=== PATIENT | female | born 1945 | race Caucasian/White ===

== ENCOUNTER 2017-12-09 19:06 | Inpatient (IN) | payer MEDICARE, MEDICAID ==
--- NOTE | 2017-12-09 19:54 | ED Physician Chart ---
ED Chief Complaint/HPI - Patient Information Date Seen:: 12/09/17 Time Seen:: 19:53 Chief Complaint:: Increased agitation History of Present Illness:: 72 yo female was brought SNF to ER due to increased agitation. Her aggressive behavior posed safety risks to herself and others. She had failure to thrive with continuous refusal to meals. Allergies:: Allergies Allergy/AdvReac Type Severity Reaction Status Date / Time Sulfa (Sulfonamide Allergy Verified 12/09/17 19:31 Antibiotics) Vitals:: Vital Signs - 8 hr 12/09/17 19:20 Temp 98.7 F HR 85 RR 18 BP 143/90 O2 Sat % 98 ED Review of Systems - Review of Systems General/Constitutional: No fever Skin: No skin lesions Head: No headache Eyes: No pain ENT: No earache Neck: No neck pain Cardio Vascular: No chest pain Pulmonary: No SOB GI: No nausea, No vomiting Musculoskeletal: No bone or joint pain Psychiatric: Anxiety ED Past Medical History - Past Medical History Past Medical History: Thyroid disorder, Other (CKD) Social History: Non Smoker, No Alcohol, No Drug Use Psychiatricy History: Schizophrenia, Bipolar, Other (Anxiety) Family Medical History - Family Member Mother History Unknown: Yes ED Physical Exam - Physical Examination Other Gen/Cons comments:: Oriented to self only, wheelchair bound ED Labs/Radiology/EKG Results - EKG Interpretations EKG Time:: 20:03 Rate & Rhythm: Sinus rhythm Intervals: Atrial premature complex ED Septic Shock - <6hrs of presentation: Vital Signs: Vital Signs - 8 hr 12/09/17 19:20 Temp 98.7 F HR 85 RR 18 BP 143/90 O2 Sat % 98
[2017-12-09 20:22] LABS: HEMATOCRIT 34.3 % (41.0-60); HEMOGLOBIN 11.7 gm/dL (12-16); MEAN CELL VOLUME 94.4 fl (81-100); MEAN CORPUSCULAR HEMOGLOBIN 32.3 pg (27.0-31.0); MEAN CORPUSCULAR HGB CONC 34.2 pg (28.0-36.0); MEAN PLATELET VOLUME 8.9 fl; PLATELET COUNT 215 Th/cmm (150-400); RED BLOOD COUNT 3.64 Mil/cmm (3.80-5.20); RED CELL DISTRIBUTION WIDTH 12.1 % (11.5-20.0); WHITE BLOOD COUNT 7.4 Th/cmm (4.8-10.8)
[2017-12-09 20:43] LABS: ALB/GLOB RATIO 1.3 (1.0-1.8); ALBUMIN 3.9 gm/dL (3.7-5.3); ANION GAP 6.2 (7.0-16.0); BILIRUBIN,TOTAL 0.3 mg/dL (0.3-1.0); CALCIUM SERUM 10.7 mg/dL (8.6-10.3); CARBON DIOXIDE 27.1 mEq/L (21.0-31.0); CREATININE - SERUM 2.5 mg/dL (0.6-1.2); GFR AFRICAN-AMERICAN 24.5 ml/min (>90); GFR NON AFRICAN-AMERICAN 20.2 ml/min; POTASSIUM SERUM 4.3 mEq/L (3.5-5.1); TOTAL PROTEIN,SERUM 6.9 gm/dL (6.0-8.3)
[2017-12-09 21:06] LABS: URINE MICROSCOPIC INDICATED? YES; URINE SOURCE RANDOM
[2017-12-09] MEDS ORDERED: Sodium Chloride 0.9% 500 ML IV ONE (21:06)
[2017-12-09 21:07] LABS: BAND NEUTROPHILE 1 % (0-10); LYMPHOCYTE 35 % (20-50); MANUAL DIFF REQUIRED? YES; NEUTROPHILS 56 % (40-80); TOTAL CELLS COUNTED 100
[2017-12-09 21:08] LABS: URINE BILIRUBIN NEGATIVE (NEGATIVE); URINE BLOOD NEGATIVE (NEGATIVE); URINE GLUCOSE (UA) NEGATIVE (NEGATIVE); URINE KETONE NEGATIVE (NEGATIVE); URINE LEUKOCYTE ESTERASE LARGE (NEGATIVE); URINE NITRATE NEGATIVE (NEGATIVE); URINE PH 7.5 (4.6 - 8.0); URINE PROTEIN 100 mg/dL (NEGATIVE); URINE UROBILINOGEN 0.2 E.U./dL (0.2 - 1.0)
[2017-12-09 21:08] LABS: BASOPHIL 0 % (0-3); EOSINOPHIL 5 % (0-5); MONOCYTE 3 % (2-10)
[2017-12-09 21:14] LABS: URINE CLARITY SLIGHT CLOUDY (CLEAR); URINE COLOR YELLOW
[2017-12-09 21:18] LABS: URINE BACTERIA FEW /hpf (NONE SEEN); URINE EPITHELIAL CELLS OCCASIONAL /lpf (FEW)
[2017-12-09] MEDS ORDERED: cefTRIAXone 1 GM in Sodium Chloride 0.9% 50 ML IV ONE (21:37)
[2017-12-09 23:20] VITALS: BP 140/69
[2017-12-09] MEDS ORDERED: Magnesium Hydroxide (MOM) 30 mL UDC PO PRN (23:46)
[2017-12-10] MEDS: Levothyroxine 0.05 Mg Tab PO SCH (06:56)
--- NOTE | 2017-12-10 08:35 | Diagnostic Imaging Report ---
Portable chest x-ray History: Shortness of breath Allowing for portable technique the heart size is normal. Atherosclerotic calcification seen within the aortic arch. No focal pulmonary parenchymal processes. No hilar or mediastinal abnormalities. Scoliosis noted in the thoracolumbar spine. Chronic deformity noted about the distal portion of the left clavicle. Impression: No acute abnormalities.
[2017-12-10] MEDS: Vitamin B Complex w/Vitamin C Tab PO SCH (08:52)
--- NOTE | 2017-12-10 11:07 | History and Physical ---
History of Present Illness - HPI Chief Complaint: Increased in agitation HPI: Patient is a permanent resident of a care home, he was send to ER secondary to increased in agitation. 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 BRAKE REPAIR: Report: Dementia GI: Report: No Pertinent Hx Psych: Report: Psychosis, Schizophrenia Musculoskeletal: Report: Weakness, Other (Non ambulatory) Rheumatologic: Report: No pertinent Hx Infectious Disease: Report: No Pertinent Hx Renal/: Report: Chronic Renal Insuff Endocrine: Report: No Pertinent Hx Dermatology: Report: No Pertinent Hx - Past Surgical History Past Surgical History: No pertinent Hx Family Medical History - Family Member Mother History Unknown: Yes Social History Smoke: No Alcohol: None Drugs: None Lives: [facility] Domestic Violence: Negative - Medications Home Medications: Home Medication Medication Instructions Recorded Type Cyanocobalamin [Vitamin B12] 100 mcg PO DAILY 12/09/17 History Docusate Sodium [Colace] 100 mg PO DAILY 12/09/17 History Levothyroxine [Synthroid] 0.05 mg PO QDAC 12/09/17 History Magnesium Hydroxide [Milk of 30 ml PO DAILY PRN 12/09/17 History Magnesia] Megestrol Acetate 400 mg PO DAILY 12/09/17 History Sennosides [Senokot] 2 tab PO HS 12/09/17 History Vit B Cmplx 3/FA/Vit C/Biotin 1 tab PO DAILY 12/09/17 History [Nephro-Lindy Rx Tablet] - Allergies Allergies/Adverse Reactions: Allergies Allergy/AdvReac Type Severity Reaction Status Date / Time Sulfa (Sulfonamide Allergy Verified 12/09/17 19:31 Antibiotics) Review of Systems - Review of Systems Constitutional: Report: No Significant Eyes: Report: No Significant ENT: Report: No Significant Respiratory: Report: No Significant Cardiovascular: Report: No Significant Gastrointestinal: Report: No Significant Genitourinary: Report: No Significant Musculoskeletal: Report: Other (Non ambulatory) Neurological: Report: Weakness, Confusion Physical Exam - Physical Exam HEENT: Report: Ears Nose Throat within normal limits Neck: Report: Within normal limits Cardiovascular Systems: Report: Regular, Rate and Rhythm Respiratory: Report: Breath Sounds are within normal limits Abdomen: Report: Non-tender to palpation Back: Report: Inspection of back is within normal limits. Extremities: Report: Non-tender to palpation., Other (Non ambulatory) Skin: Report: Color of skin is within normal limits Neuro/Psych: Report: Disoriented to name time or place, Depressed affect - Assessment Assessment: Patient is awake, alert, calm in no acute distress. Dx: increased in agitation, Hypothyroidism, CKD, Polyarthritis - Plan Plan: Patient is under Psychiatric care. She is continue with SNF meds. Consult with nephro is requested. Will continue to monitor.
--- NOTE | 2017-12-10 15:14 | History & Physical ---
ADMIT DATE: 12/09/[address] Lizarraga. IDENTIFYING INFORMATION: The patient is a 72-year-old female. CHIEF COMPLAINT: "I broke a window." HISTORY OF PRESENT ILLNESS: The patient was [facility] from [facility] because of being paranoid, anxious, agitated. The patient herself admits that she broke a window, but she was resistant to further questioning, she reports that she has not been sleeping or eating well. She denies any auditory or visual hallucinations, denies that she was trying to harm herself or anybody. She was not a very good historian. PAST PSYCHIATRIC HISTORY: The patient reports she has been hospitalized before, but she was unable to give me more details. MEDICAL HISTORY: She is allergic to SULFONAMIDE ANTIBIOTICS and SULFA. She is not on any psychotropic medications other than Ativan. FAMILY AND SOCIAL HISTORY: The patient is . She said she has one son that , but she was unable to give me details. 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 She reports that she used to use alcohol in the past, but no longer doing it. She reports she never tried to harm herself. She denies family psychotic disorder; however, she is not a reliable historian. MENTAL STATUS EXAMINATION: The patient is appropriately dressed, not very well groomed. She was in bed. She had avoided eye contact. She was alert. She was able to tell me the date, at the beginning she said this is 2006, later says 2017. She was able to tell me her date of , but she believes she is 73 years of age. She seems to have average intelligence. Her senior living memory is intact. She can tell me her date of . Recent memory is poor. She is not sure of the details that led to admission. She has not been sleeping or eating well. She denies any intent to harm herself or anybody, but she broke a window and she has been paranoid. Her insight and judgment is impaired. IMPRESSION: AXIS I: Psychosis, not otherwise specified, rule out bipolar disorder. MEDICAL DIAGNOSIS: Deferred to the medical doctor. Her assets, she is accepting treatment. Negative poor coping skills. INITIAL TREATMENT PLAN: I will be adding Seroquel to her treatment to help her calm down and help with her paranoia. We will do group therapy, milieu therapy, individual therapy. ESTIMATED LENGTH OF STAY: Three to 7 days. DISCHARGE CRITERIA: Decreased agitation, paranoia, aggression. After discharge, outpatient treatment. [facility]# [id number]
[2017-12-11] MEDS: Levothyroxine 0.05 Mg Tab PO SCH (06:52)
--- NOTE | 2017-12-11 08:50 | General Progress Note ---
Subjective - Review of Systems Service Date: 12/11/17 Subjective: Incoherent Objective - Results Result Diagrams: 12/09/17 20:17 12/09/17 20:17 Recent Labs: Laboratory Last Values WBC 7.4 Th/cmm (4.8-10.8) 12/09/17 20:17 RBC 3.64 Mil/cmm (3.80-5.20) L 12/09/17 20:17 Hgb 11.7 gm/dL (12-16) L 12/09/17 20:17 Hct 34.3 % (41.0-60) L 12/09/17 20:17 MCV 94.4 fl (81-100) 12/09/17 20:17 MCH 32.3 pg (27.0-31.0) H 12/09/17 20:17 MCHC Differential 34.2 pg (28.0-36.0) 12/09/17 20:17 RDW 12.1 % (11.5-20.0) 12/09/17 20:17 Plt Count 215 Th/cmm (150-400) 12/09/17 20:17 MPV 8.9 fl 12/09/17 20:17 Band Neutrophils % 1 % (0-10) 12/09/17 20:17 Neutrophils (Manual) 56 % (40-80) 12/09/17 20:17 Lymphocytes 35 % (20-50) 12/09/17 20:17 Monocytes 3 % (2-10) 12/09/17 20:17 Eosinophils 5 % (0-5) 12/09/17 20:17 Basophils 0 % (0-3) 12/09/17 20:17 Sodium 132 mEq/L (136-145) L 12/09/17 20:17 Potassium 4.3 mEq/L (3.5-5.1) 12/09/17 20:17 Chloride 103 mEq/L (98-107) 12/09/17 20:17 Carbon Dioxide 27.1 mEq/L (21.0-31.0) 12/09/17 20:17 Anion Gap 6.2 (7.0-16.0) L 12/09/17 20:17 BUN 41 mg/dL (7-25) H 12/09/17 20:17 Creatinine 2.5 mg/dL (0.6-1.2) H 12/09/17 20:17 Est GFR ( Amer) 24.5 ml/min (>90) 12/09/17 20:17 Est GFR (Non-Af Amer) 20.2 ml/min 12/09/17 20:17 BUN/Creatinine Ratio 16.4 12/09/17 20:17 Glucose 121 mg/dL (70-105) H 12/09/17 20:17 Calcium 10.7 mg/dL (8.6-10.3) H 12/09/17 20:17 Total Bilirubin 0.3 mg/dL (0.3-1.0) 12/09/17 20:17 AST 14 U/L (13-39) 12/09/17 20:17 ALT 9 U/L (7-52) 12/09/17 20:17 Alkaline Phosphatase 65 U/L (34-104) 12/09/17 20:17 Total Protein 6.9 gm/dL (6.0-8.3) 12/09/17 20:17 Albumin 3.9 gm/dL (3.7-5.3) 12/09/17 20:17 Globulin 3.0 gm/dL 12/09/17 20:17 Albumin/Globulin Ratio 1.3 (1.0-1.8) 12/09/17 20:17 TSH 1.71 uIU/ml (0.34-5.60) 12/09/17 20:17 Urine Source RANDOM 12/09/17 20:30 Urine Color YELLOW 12/09/17 20:30 Urine Clarity SLIGHT CLOUDY (CLEAR) H 12/09/17 20:30 Urine pH 7.5 (4.6 - 8.0) 12/09/17 20:30 Ur Specific [place] 1.010 (1.005-1.030) 12/09/17 20:30 Urine Protein 100 mg/dL (NEGATIVE) H 12/09/17 20:30 Urine Glucose (UA) NEGATIVE mg/dL (NEGATIVE) 12/09/17 20:30 Urine Ketones NEGATIVE mg/dL (NEGATIVE) 12/09/17 20:30 Urine Blood NEGATIVE (NEGATIVE) 12/09/17 20:30 Urine Nitrate NEGATIVE (NEGATIVE) 12/09/17 20:30 Urine Bilirubin NEGATIVE (NEGATIVE) 12/09/17 20:30 Urine Urobilinogen 0.2 E.U./dL (0.2 - 1.0) 12/09/17 20:30 Ur Leukocyte Esterase LARGE (NEGATIVE) H 12/09/17 20:30 Urine RBC 2-5 /hpf (0-5) 12/09/17 20:30 Urine WBC 10-25 /hpf (0-5) H 12/09/17 20:30 Ur Epithelial Cells OCCASIONAL /lpf (FEW) 12/09/17 20:30 Urine Bacteria FEW /hpf (NONE SEEN) 12/09/17 20:30 - Physical Exam Vitals and I&O: Vital Signs Temp 98.3 F 12/10/17 17:13 Pulse 77 12/10/17 17:13 Resp 18 12/10/17 19:44 BP 154/78 12/10/17 17:13 Pulse Ox 97 12/10/17 17:13 Intake & Output 12/10/17 12/11/17 12/11/17 18:59 06:59 18:59 Intake Total 600 Balance 600 Intake: Oral 600 Other: # Voids 2 Stool Characteristics Formed Active Medications: Current Medications Acetaminophen (Tylenol) 650 mg PO Q4HR PRN PRN Reason: Mild Pain / Temp above 100 Stop: 02/07/18 23:32 Cyanocobalamin (Vitamin B12) 100 mcg PO DAILY [facility] Stop: 02/08/18 08:59 Last Admin: 12/10/17 08:51 Dose: 100 mcg Docusate Sodium (Colace) 100 mg PO DAILY [facility] Stop: 02/08/18 08:59 Last Admin: 12/10/17 08:51 Dose: 100 mg Levothyroxine Sodium (Synthroid) 0.05 mg PO QDAC [facility] Stop: 02/08/18 07:29 Last Admin: 12/11/17 06:52 Dose: 0.05 mg Lorazepam (Ativan) 0.5 mg PO Q4HR PRN; Protocol PRN Reason: Anxiety Stop: 01/08/18 23:32 Magnesium Hydroxide (Milk Of Magnesia) 30 ml PO DAILY PRN PRN Reason: Constipation Stop: 02/07/18 23:45 Megestrol Acetate (Megace) 400 mg PO DAILY [facility] Stop: 02/08/18 08:59 Last Admin: 12/10/17 08:51 Dose: 400 mg Quetiapine Fumarate (Seroquel) 12.5 mg PO BID [facility]E PRN Reason: Protocol Stop: 02/08/18 16:59 Last Admin: 12/10/17 16:31 Dose: 12.5 mg Senna (Senna) 17.2 mg PO HS [facility] Stop: 02/08/18 20:59 Last Admin: 12/10/17 21:30 Dose: 17.2 mg Vitamin B Complex/Vit C/Folic Acid (Vitamin B Complex W/Vitamin C) 1 tab PO DAILY [facility] Stop: 02/08/18 08:59 Last Admin: 12/10/17 08:52 Dose: 1 tab Zolpidem Tartrate (Ambien) 5 mg PO HS PRN PRN Reason: Insomnia Stop: 02/07/18 23:32 General: Alert, No acute distress HEENT: Atraumatic Cardiovascular: Regular rate Lungs: Clear to auscultation Abdomen: Bowel sounds Extremities: Other (No edema) Skin: Other (Warm and dry) Psych/Mental Status: Other (Confused, not oriented) - Procedures Procedures: Procedures Procedure Code Date OTHER GROUP THERAPY 94.44 10/14/10 RECREATIONAL THERAPY 93.81 10/14/10 Assessment/Plan - Assessment Assessment: Patient is awake, alert, calm in no acute distress. Dx: increased in agitation, Hypothyroidism, CKD, Polyarthritis - Plan Plan: Patient is under Psychiatric care. She is continue with SNF meds. Consult with nephro is requested. Will continue to monitor.
[2017-12-11] MEDS: Vitamin B Complex w/Vitamin C Tab PO SCH (08:51)
--- NOTE | 2017-12-12 02:36 | Consultation ---
DATE OF CONSULTATION: 12/11/2017 REASON FOR CONSULTATION: Worsening kidney function, electrolyte imbalance, and fluid management. HISTORY OF PRESENT ILLNESS: This is a 72-year-old female with past medical history of chronic kidney disease, who was brought in because of agitation. A few hours prior to admission, the patient was noted to be very agitated and aggressive to staff and residents, along with being paranoid. She has been refusing to eat as well as has worsening insomnia. She was then brought to the Geropsych Unit for further management. She has a history of chronic kidney disease and is followed regularly in my office. Her creatinine of 2.5 is her baseline. PAST MEDICAL HISTORY: 1. Chronic kidney disease. 2. Psychosis/schizophrenia. 3. CAD. 4. Hypothyroidism. CURRENT MEDICATIONS: She is currently on acetaminophen, cyanocobalamin, docusate sodium, levothyroxine, lorazepam, megestrol acetate, quetiapine, Sennosides A and B, vitamin B, and zolpidem. ALLERGIES: SULFONAMIDE. SOCIAL AND FAMILY HISTORY: I was not able to obtain from the patient because she remains agitated and uncooperative. REVIEW OF SYSTEMS: Again, I was not able to decipher this directly from the patient. PHYSICAL EXAMINATION: GENERAL: The patient is sitting in her bed, is a little bit agitated. VITAL SIGNS: Her blood pressure is 135/70, pulse 74, and temperature 97 degrees. SKIN: Good turgor, warm, no rash, no jaundice appreciated. HEENT: Head normocephalic, atraumatic. Eyes: Extraocular muscles intact. Pupils equal, round, reactive to light and accommodates. Anicteric sclerae. Novice conjunctivae. Nose, midline nasal septum. Mouth, moist mucosa adequate, but poor dentition. NECK: Supple, no adenopathy, no thyromegaly, no bruits. Trachea palpated in the midline. CHEST AND CARDIOVASCULAR: S1, S2. No rub, murmur, no gallop appreciated. Point of maximal impulse in fifth intercostal space, left midclavicular line. No abdominal or femoral bruits appreciated. LUNGS: Equal expansion. No use of accessory muscles. No supraclavicular retractions. Decreased breath sounds. No rhonchi nor wheezes appreciated. BREASTS: Symmetrical, without any discharge. ABDOMEN: Flat, soft, positive for bowel sounds. No bruits either diastolic or systolic. RECTAL: The patient refused. GENITOURINARY: The patient refused. EXTREMITIES: No evidence of any edema, cyanosis, nor clubbing with palpable femoral, but unable to fully appreciate popliteal and dorsalis pedis pulses. NEUROLOGIC: The patient is awake, agitated, uncooperative, so I was not able to pursue further by neuro exam. LABORATORY DATA: No labs available today. IMPRESSION: 1. Chronic kidney disease, at her usual baseline. 2. Psychosis, acute decompensation of psychosis/schizophrenia. 3. Coronary artery disease. 4. Hypothyroidism. PLAN: 1. Follow up urine C and S. 2. Urine sodium eosinophil and creatinine. 3. Urine microalbumin to creatinine ratio. 4. Follow up electrolytes and CBC as needed. JOB# [id number]
--- NOTE | 2017-12-12 03:16 | Progress Notes ---
DATE: 12/11/[address] Lizarraga. SUBJECTIVE: Case was discussed with the staff of the patient, reviewed records. The patient has been paranoid, talking to herself, continues to be unpredictable, impulsive, and needing redirection. Continues to have poor insight, speaking psychiatrically. PLAN: I did initiate her on Seroquel yesterday 12.5 mg at bedtime twice a day with no side effects and no sedation noted. This is too early to make further adjustments. We will continue to work with the patient in group therapy, milieu therapy, and adjust the medications as needed. JOB# [id number]
[2017-12-12] MEDS: Levothyroxine 0.05 Mg Tab PO SCH (06:32)
[2017-12-12] MEDS: Vitamin B Complex w/Vitamin C Tab PO SCH (08:40)
--- NOTE | 2017-12-12 09:03 | General Progress Note ---
Subjective - Review of Systems Service Date: 12/12/17 Subjective: Incoherent Objective - Results Result Diagrams: 12/09/17 20:17 12/09/17 20:17 Recent Labs: Laboratory Last Values WBC 7.4 Th/cmm (4.8-10.8) 12/09/17 20:17 RBC 3.64 Mil/cmm (3.80-5.20) L 12/09/17 20:17 Hgb 11.7 gm/dL (12-16) L 12/09/17 20:17 Hct 34.3 % (41.0-60) L 12/09/17 20:17 MCV 94.4 fl (81-100) 12/09/17 20:17 MCH 32.3 pg (27.0-31.0) H 12/09/17 20:17 MCHC Differential 34.2 pg (28.0-36.0) 12/09/17 20:17 RDW 12.1 % (11.5-20.0) 12/09/17 20:17 Plt Count 215 Th/cmm (150-400) 12/09/17 20:17 MPV 8.9 fl 12/09/17 20:17 Band Neutrophils % 1 % (0-10) 12/09/17 20:17 Neutrophils (Manual) 56 % (40-80) 12/09/17 20:17 Lymphocytes 35 % (20-50) 12/09/17 20:17 Monocytes 3 % (2-10) 12/09/17 20:17 Eosinophils 5 % (0-5) 12/09/17 20:17 Basophils 0 % (0-3) 12/09/17 20:17 Sodium 132 mEq/L (136-145) L 12/09/17 20:17 Potassium 4.3 mEq/L (3.5-5.1) 12/09/17 20:17 Chloride 103 mEq/L (98-107) 12/09/17 20:17 Carbon Dioxide 27.1 mEq/L (21.0-31.0) 12/09/17 20:17 Anion Gap 6.2 (7.0-16.0) L 12/09/17 20:17 BUN 41 mg/dL (7-25) H 12/09/17 20:17 Creatinine 2.5 mg/dL (0.6-1.2) H 12/09/17 20:17 Est GFR ( Amer) 24.5 ml/min (>90) 12/09/17 20:17 Est GFR (Non-Af Amer) 20.2 ml/min 12/09/17 20:17 BUN/Creatinine Ratio 16.4 12/09/17 20:17 Glucose 121 mg/dL (70-105) H 12/09/17 20:17 Calcium 10.7 mg/dL (8.6-10.3) H 12/09/17 20:17 Total Bilirubin 0.3 mg/dL (0.3-1.0) 12/09/17 20:17 AST 14 U/L (13-39) 12/09/17 20:17 ALT 9 U/L (7-52) 12/09/17 20:17 Alkaline Phosphatase 65 U/L (34-104) 12/09/17 20:17 Total Protein 6.9 gm/dL (6.0-8.3) 12/09/17 20:17 Albumin 3.9 gm/dL (3.7-5.3) 12/09/17 20:17 Globulin 3.0 gm/dL 12/09/17 20:17 Albumin/Globulin Ratio 1.3 (1.0-1.8) 12/09/17 20:17 TSH 1.71 uIU/ml (0.34-5.60) 12/09/17 20:17 Urine Source RANDOM 12/09/17 20:30 Urine Color YELLOW 12/09/17 20:30 Urine Clarity SLIGHT CLOUDY (CLEAR) H 12/09/17 20:30 Urine pH 7.5 (4.6 - 8.0) 12/09/17 20:30 Ur Specific [place] 1.010 (1.005-1.030) 12/09/17 20:30 Urine Protein 100 mg/dL (NEGATIVE) H 12/09/17 20:30 Urine Glucose (UA) NEGATIVE mg/dL (NEGATIVE) 12/09/17 20:30 Urine Ketones NEGATIVE mg/dL (NEGATIVE) 12/09/17 20:30 Urine Blood NEGATIVE (NEGATIVE) 12/09/17 20:30 Urine Nitrate NEGATIVE (NEGATIVE) 12/09/17 20:30 Urine Bilirubin NEGATIVE (NEGATIVE) 12/09/17 20:30 Urine Urobilinogen 0.2 E.U./dL (0.2 - 1.0) 12/09/17 20:30 Ur Leukocyte Esterase LARGE (NEGATIVE) H 12/09/17 20:30 Urine RBC 2-5 /hpf (0-5) 12/09/17 20:30 Urine WBC 10-25 /hpf (0-5) H 12/09/17 20:30 Ur Epithelial Cells OCCASIONAL /lpf (FEW) 12/09/17 20:30 Urine Bacteria FEW /hpf (NONE SEEN) 12/09/17 20:30 - Physical Exam Vitals and I&O: Vital Signs Temp 98.1 F 12/12/17 06:08 Pulse 71 12/12/17 06:08 Resp 20 12/12/17 06:08 BP 148/78 12/12/17 06:08 Pulse Ox 96 12/12/17 06:08 Intake & Output 12/11/17 12/12/17 12/12/17 18:59 06:59 18:59 Intake Total 1560 240 Balance 1560 240 Intake: Oral 1560 240 Other: # Voids 3 1 # Bowel Movements 1 Stool Characteristics Formed Active Medications: Current Medications Acetaminophen (Tylenol) 650 mg PO Q4HR PRN PRN Reason: Mild Pain / Temp above 100 Stop: 02/07/18 23:32 Cyanocobalamin (Vitamin B12) 100 mcg PO DAILY [facility] Stop: 02/08/18 08:59 Last Admin: 12/12/17 08:39 Dose: 100 mcg Docusate Sodium (Colace) 100 mg PO DAILY [facility] Stop: 02/08/18 08:59 Last Admin: 12/12/17 08:40 Dose: 100 mg Levothyroxine Sodium (Synthroid) 0.05 mg PO QDAC [facility] Stop: 02/08/18 07:29 Last Admin: 12/12/17 06:32 Dose: 0.05 mg Lorazepam (Ativan) 0.5 mg PO Q4HR PRN; Protocol PRN Reason: Anxiety Stop: 01/08/18 23:32 Magnesium Hydroxide (Milk Of Magnesia) 30 ml PO DAILY PRN PRN Reason: Constipation Stop: 02/07/18 23:45 Megestrol Acetate (Megace) 400 mg PO DAILY [facility] Stop: 02/08/18 08:59 Last Admin: 12/12/17 08:40 Dose: 400 mg Quetiapine Fumarate (Seroquel) 12.5 mg PO BID [facility]E PRN Reason: Protocol Stop: 02/08/18 16:59 Last Admin: 12/12/17 08:40 Dose: 12.5 mg Senna (Senna) 17.2 mg PO HS [facility] Stop: 02/08/18 20:59 Last Admin: 12/11/17 21:41 Dose: 17.2 mg Vitamin B Complex/Vit C/Folic Acid (Vitamin B Complex W/Vitamin C) 1 tab PO DAILY [facility] Stop: 02/08/18 08:59 Last Admin: 12/12/17 08:40 Dose: 1 tab Zolpidem Tartrate (Ambien) 5 mg PO HS PRN PRN Reason: Insomnia Stop: 02/07/18 23:32 General: Alert, No acute distress HEENT: Atraumatic Cardiovascular: Regular rate Lungs: Clear to auscultation Abdomen: Bowel sounds Extremities: Other (No edema) Skin: Other (Warm and dry) Psych/Mental Status: Other (Confused, not oriented) - Procedures Procedures: Procedures Procedure Code Date OTHER GROUP THERAPY 94.44 10/14/10 RECREATIONAL THERAPY 93.81 10/14/10 Assessment/Plan - Assessment Assessment: Patient is awake, alert, calm in no acute distress. Dx: increased in agitation, Hypothyroidism, CKD, Polyarthritis - Plan Plan: Patient is under Psychiatric care. She is continue with SNF meds. follow by nephro. Will continue to monitor.
--- NOTE | 2017-12-12 10:08 | Progress Notes ---
DATE: 12/12/2017 SUBJECTIVE: Chart reviewed and the patient interviewed. I also discussed the patient's condition with the staff and reviewed records and labs. The patient continued to be hostile and she is still confused and agitated. The patient also is suspicious and paranoid. The patient continued to cover her face and tried to peek with her eyes in a paranoid and suspicious way. She also still has episodes of agitation according to staff and has difficulty following directions. Otherwise, the patient is compliant with taking her medications with no side effects of medications. ASSESSMENT: The patient is still agitated and psychotic. TREATMENT PLAN: We will continue to monitor behavior and condition closely. Also, continue to work on agitation and on ineffective coping and we will continue to follow up. [facility]# [id number]
--- NOTE | 2017-12-12 15:00 | General Progress Note ---
Subjective - Review of Systems Service Date: 12/12/17 Subjective: still agitated Objective - Results Result Diagrams: 12/09/17 20:17 12/09/17 20:17 Recent Labs: Laboratory Last Values WBC 7.4 Th/cmm (4.8-10.8) 12/09/17 20:17 RBC 3.64 Mil/cmm (3.80-5.20) L 12/09/17 20:17 Hgb 11.7 gm/dL (12-16) L 12/09/17 20:17 Hct 34.3 % (41.0-60) L 12/09/17 20:17 MCV 94.4 fl (81-100) 12/09/17 20:17 MCH 32.3 pg (27.0-31.0) H 12/09/17 20:17 MCHC Differential 34.2 pg (28.0-36.0) 12/09/17 20:17 RDW 12.1 % (11.5-20.0) 12/09/17 20:17 Plt Count 215 Th/cmm (150-400) 12/09/17 20:17 MPV 8.9 fl 12/09/17 20:17 Band Neutrophils % 1 % (0-10) 12/09/17 20:17 Neutrophils (Manual) 56 % (40-80) 12/09/17 20:17 Lymphocytes 35 % (20-50) 12/09/17 20:17 Monocytes 3 % (2-10) 12/09/17 20:17 Eosinophils 5 % (0-5) 12/09/17 20:17 Basophils 0 % (0-3) 12/09/17 20:17 Sodium 132 mEq/L (136-145) L 12/09/17 20:17 Potassium 4.3 mEq/L (3.5-5.1) 12/09/17 20:17 Chloride 103 mEq/L (98-107) 12/09/17 20:17 Carbon Dioxide 27.1 mEq/L (21.0-31.0) 12/09/17 20:17 Anion Gap 6.2 (7.0-16.0) L 12/09/17 20:17 BUN 41 mg/dL (7-25) H 12/09/17 20:17 Creatinine 2.5 mg/dL (0.6-1.2) H 12/09/17 20:17 Est GFR ( Amer) 24.5 ml/min (>90) 12/09/17 20:17 Est GFR (Non-Af Amer) 20.2 ml/min 12/09/17 20:17 BUN/Creatinine Ratio 16.4 12/09/17 20:17 Glucose 121 mg/dL (70-105) H 12/09/17 20:17 Calcium 10.7 mg/dL (8.6-10.3) H 12/09/17 20:17 Total Bilirubin 0.3 mg/dL (0.3-1.0) 12/09/17 20:17 AST 14 U/L (13-39) 12/09/17 20:17 ALT 9 U/L (7-52) 12/09/17 20:17 Alkaline Phosphatase 65 U/L (34-104) 12/09/17 20:17 Total Protein 6.9 gm/dL (6.0-8.3) 12/09/17 20:17 Albumin 3.9 gm/dL (3.7-5.3) 12/09/17 20:17 Globulin 3.0 gm/dL 12/09/17 20:17 Albumin/Globulin Ratio 1.3 (1.0-1.8) 12/09/17 20:17 TSH 1.71 uIU/ml (0.34-5.60) 12/09/17 20:17 Urine Source RANDOM 12/09/17 20:30 Urine Color YELLOW 12/09/17 20:30 Urine Clarity SLIGHT CLOUDY (CLEAR) H 12/09/17 20:30 Urine pH 7.5 (4.6 - 8.0) 12/09/17 20:30 Ur Specific [place] 1.010 (1.005-1.030) 12/09/17 20:30 Urine Protein 100 mg/dL (NEGATIVE) H 12/09/17 20:30 Urine Glucose (UA) NEGATIVE mg/dL (NEGATIVE) 12/09/17 20:30 Urine Ketones NEGATIVE mg/dL (NEGATIVE) 12/09/17 20:30 Urine Blood NEGATIVE (NEGATIVE) 12/09/17 20:30 Urine Nitrate NEGATIVE (NEGATIVE) 12/09/17 20:30 Urine Bilirubin NEGATIVE (NEGATIVE) 12/09/17 20:30 Urine Urobilinogen 0.2 E.U./dL (0.2 - 1.0) 12/09/17 20:30 Ur Leukocyte Esterase LARGE (NEGATIVE) H 12/09/17 20:30 Urine RBC 2-5 /hpf (0-5) 12/09/17 20:30 Urine WBC 10-25 /hpf (0-5) H 12/09/17 20:30 Ur Epithelial Cells OCCASIONAL /lpf (FEW) 12/09/17 20:30 Urine Bacteria FEW /hpf (NONE SEEN) 12/09/17 20:30 - Physical Exam Vitals and I&O: Vital Signs Temp 98.1 F 12/12/17 06:08 Pulse 71 12/12/17 06:08 Resp 18 12/12/17 08:00 BP 148/78 12/12/17 06:08 Pulse Ox 96 12/12/17 06:08 Intake & Output 12/11/17 12/12/17 12/12/17 18:59 06:59 18:59 Intake Total 1560 240 Balance 1560 240 Intake: Oral 1560 240 Other: # Voids 3 1 # Bowel Movements 1 Stool Characteristics Formed Active Medications: Current Medications Acetaminophen (Tylenol) 650 mg PO Q4HR PRN PRN Reason: Mild Pain / Temp above 100 Stop: 02/07/18 23:32 Cyanocobalamin (Vitamin B12) 100 mcg PO DAILY [facility] Stop: 02/08/18 08:59 Last Admin: 12/12/17 08:39 Dose: 100 mcg Docusate Sodium (Colace) 100 mg PO DAILY [facility] Stop: 02/08/18 08:59 Last Admin: 12/12/17 08:40 Dose: 100 mg Levothyroxine Sodium (Synthroid) 0.05 mg PO QDAC [facility] Stop: 02/08/18 07:29 Last Admin: 12/12/17 06:32 Dose: 0.05 mg Lorazepam (Ativan) 0.5 mg PO Q4HR PRN; Protocol PRN Reason: Anxiety Stop: 01/08/18 23:32 Magnesium Hydroxide (Milk Of Magnesia) 30 ml PO DAILY PRN PRN Reason: Constipation Stop: 02/07/18 23:45 Megestrol Acetate (Megace) 400 mg PO DAILY [facility] Stop: 02/08/18 08:59 Last Admin: 12/12/17 08:40 Dose: 400 mg Quetiapine Fumarate (Seroquel) 12.5 mg PO BID [facility]E PRN Reason: Protocol Stop: 02/08/18 16:59 Last Admin: 12/12/17 08:40 Dose: 12.5 mg Senna (Senna) 17.2 mg PO HS [facility] Stop: 02/08/18 20:59 Last Admin: 12/11/17 21:41 Dose: 17.2 mg Vitamin B Complex/Vit C/Folic Acid (Vitamin B Complex W/Vitamin C) 1 tab PO DAILY [facility] Stop: 02/08/18 08:59 Last Admin: 12/12/17 08:40 Dose: 1 tab Zolpidem Tartrate (Ambien) 5 mg PO HS PRN PRN Reason: Insomnia Stop: 02/07/18 23:32 General: Alert, No acute distress HEENT: Atraumatic Neck: Supple, +2 carotid pulse wo bruit Cardiovascular: Regular rate, Normal S1, Normal S2 Lungs: Clear to auscultation Abdomen: Bowel sounds Extremities: Other (No edema) Neurological: Sensation intact Skin: no Rash Psych/Mental Status: Other (Confused, not oriented, agitated) - Procedures Procedures: Procedures Procedure Code Date OTHER GROUP THERAPY 94.44 10/14/10 RECREATIONAL THERAPY 93.81 10/14/10 Assessment/Plan - Plan Plan: Current Medications Acetaminophen (Tylenol) 650 mg PO Q4HR PRN PRN Reason: Mild Pain / Temp above 100 Stop: 02/07/18 23:32 Cyanocobalamin (Vitamin B12) 100 mcg PO DAILY [facility] Stop: 02/08/18 08:59 Last Admin: 12/12/17 08:39 Dose: 100 mcg Docusate Sodium (Colace) 100 mg PO DAILY [facility] Stop: 02/08/18 08:59 Last Admin: 12/12/17 08:40 Dose: 100 mg Levothyroxine Sodium (Synthroid) 0.05 mg PO QDAC [facility] Stop: 02/08/18 07:29 Last Admin: 12/12/17 06:32 Dose: 0.05 mg Lorazepam (Ativan) 0.5 mg PO Q4HR PRN; Protocol PRN Reason: Anxiety Stop: 01/08/18 23:32 Magnesium Hydroxide (Milk Of Magnesia) 30 ml PO DAILY PRN PRN Reason: Constipation Stop: 02/07/18 23:45 Megestrol Acetate (Megace) 400 mg PO DAILY [facility] Stop: 02/08/18 08:59 Last Admin: 12/12/17 08:40 Dose: 400 mg Quetiapine Fumarate (Seroquel) 12.5 mg PO BID AY[facility]E PRN Reason: Protocol Stop: 02/08/18 16:59 Last Admin: 12/12/17 08:40 Dose: 12.5 mg Senna (Senna) 17.2 mg PO HS [facility] Stop: 02/08/18 20:59 Last Admin: 12/11/17 21:41 Dose: 17.2 mg Vitamin B Complex/Vit C/Folic Acid (Vitamin B Complex W/Vitamin C) 1 tab PO DAILY [facility] Stop: 02/08/18 08:59 Last Admin: 12/12/17 08:40 Dose: 1 tab Zolpidem Tartrate (Ambien) 5 mg PO HS PRN PRN Reason: Insomnia Stop: 02/07/18 23:32 Lab - Result Diagrams 12/09/17 20:17 12/09/17 20:17 kidney fnc stable @ 2.5 which is her baseline encourage po intake
[2017-12-12] MEDS ORDERED: Sulfamethoxazole/TMP 800/160mg Tab PO SCH (17:00)
[2017-12-13] MEDS: Levothyroxine 0.05 Mg Tab PO SCH (06:34)
--- NOTE | 2017-12-13 08:55 | Progress Notes ---
DATE: SUBJECTIVE: Chart reviewed and the patient interviewed. Also discussed the patient's condition with the staff and reviewed records and labs. The patient is still confused and anxious. The patient also is forgetful. She also has been having episodes of irritability and agitation as well as paranoia. She also has been having severe mood swings and severe anxiety. Otherwise, the patient is cooperative with her treatment and is compliant with taking her medications with no side effects of medications. ASSESSMENT: The patient is still psychotic and agitated. TREATMENT PLAN: We will continue to monitor her behavior and her condition closely. Also, continue to work on adjusting psychotropic medications and follow up closely. JOB# [id number]
--- NOTE | 2017-12-13 09:01 | General Progress Note ---
Subjective - Review of Systems Service Date: 12/13/17 Subjective: Incoherent Objective - Results Result Diagrams: 12/09/17 20:17 12/09/17 20:17 Recent Labs: Laboratory Last Values WBC 7.4 Th/cmm (4.8-10.8) 12/09/17 20:17 RBC 3.64 Mil/cmm (3.80-5.20) L 12/09/17 20:17 Hgb 11.7 gm/dL (12-16) L 12/09/17 20:17 Hct 34.3 % (41.0-60) L 12/09/17 20:17 MCV 94.4 fl (81-100) 12/09/17 20:17 MCH 32.3 pg (27.0-31.0) H 12/09/17 20:17 MCHC Differential 34.2 pg (28.0-36.0) 12/09/17 20:17 RDW 12.1 % (11.5-20.0) 12/09/17 20:17 Plt Count 215 Th/cmm (150-400) 12/09/17 20:17 MPV 8.9 fl 12/09/17 20:17 Band Neutrophils % 1 % (0-10) 12/09/17 20:17 Neutrophils (Manual) 56 % (40-80) 12/09/17 20:17 Lymphocytes 35 % (20-50) 12/09/17 20:17 Monocytes 3 % (2-10) 12/09/17 20:17 Eosinophils 5 % (0-5) 12/09/17 20:17 Basophils 0 % (0-3) 12/09/17 20:17 Sodium 132 mEq/L (136-145) L 12/09/17 20:17 Potassium 4.3 mEq/L (3.5-5.1) 12/09/17 20:17 Chloride 103 mEq/L (98-107) 12/09/17 20:17 Carbon Dioxide 27.1 mEq/L (21.0-31.0) 12/09/17 20:17 Anion Gap 6.2 (7.0-16.0) L 12/09/17 20:17 BUN 41 mg/dL (7-25) H 12/09/17 20:17 Creatinine 2.5 mg/dL (0.6-1.2) H 12/09/17 20:17 Est GFR ( Amer) 24.5 ml/min (>90) 12/09/17 20:17 Est GFR (Non-Af Amer) 20.2 ml/min 12/09/17 20:17 BUN/Creatinine Ratio 16.4 12/09/17 20:17 Glucose 121 mg/dL (70-105) H 12/09/17 20:17 Calcium 10.7 mg/dL (8.6-10.3) H 12/09/17 20:17 Total Bilirubin 0.3 mg/dL (0.3-1.0) 12/09/17 20:17 AST 14 U/L (13-39) 12/09/17 20:17 ALT 9 U/L (7-52) 12/09/17 20:17 Alkaline Phosphatase 65 U/L (34-104) 12/09/17 20:17 Total Protein 6.9 gm/dL (6.0-8.3) 12/09/17 20:17 Albumin 3.9 gm/dL (3.7-5.3) 12/09/17 20:17 Globulin 3.0 gm/dL 12/09/17 20:17 Albumin/Globulin Ratio 1.3 (1.0-1.8) 12/09/17 20:17 TSH 1.71 uIU/ml (0.34-5.60) 12/09/17 20:17 Urine Source RANDOM 12/09/17 20:30 Urine Color YELLOW 12/09/17 20:30 Urine Clarity SLIGHT CLOUDY (CLEAR) H 12/09/17 20:30 Urine pH 7.5 (4.6 - 8.0) 12/09/17 20:30 Ur Specific [place] 1.010 (1.005-1.030) 12/09/17 20:30 Urine Protein 100 mg/dL (NEGATIVE) H 12/09/17 20:30 Urine Glucose (UA) NEGATIVE mg/dL (NEGATIVE) 12/09/17 20:30 Urine Ketones NEGATIVE mg/dL (NEGATIVE) 12/09/17 20:30 Urine Blood NEGATIVE (NEGATIVE) 12/09/17 20:30 Urine Nitrate NEGATIVE (NEGATIVE) 12/09/17 20:30 Urine Bilirubin NEGATIVE (NEGATIVE) 12/09/17 20:30 Urine Urobilinogen 0.2 E.U./dL (0.2 - 1.0) 12/09/17 20:30 Ur Leukocyte Esterase LARGE (NEGATIVE) H 12/09/17 20:30 Urine RBC 2-5 /hpf (0-5) 12/09/17 20:30 Urine WBC 10-25 /hpf (0-5) H 12/09/17 20:30 Ur Epithelial Cells OCCASIONAL /lpf (FEW) 12/09/17 20:30 Urine Bacteria FEW /hpf (NONE SEEN) 12/09/17 20:30 - Physical Exam Vitals and I&O: Vital Signs Temp 98.3 F 12/13/17 06:37 Pulse 80 12/13/17 06:37 Resp 19 12/13/17 06:37 BP 157/95 12/13/17 06:37 Pulse Ox 98 12/13/17 06:37 Intake & Output 12/12/17 12/13/17 12/13/17 18:59 06:59 18:59 Intake Total 850 120 Balance 850 120 Intake: Oral 850 120 Other: # Voids 3 3 # Bowel Movements 1 Active Medications: Current Medications Acetaminophen (Tylenol) 650 mg PO Q4HR PRN PRN Reason: Mild Pain / Temp above 100 Stop: 02/07/18 23:32 Ceftriaxone Sodium (Rocephin) 1 gm IM Q24HR [facility] Stop: 12/18/17 08:59 Cyanocobalamin (Vitamin B12) 100 mcg PO DAILY [facility] Stop: 02/08/18 08:59 Last Admin: 12/12/17 08:39 Dose: 100 mcg Docusate Sodium (Colace) 100 mg PO DAILY [facility] Stop: 02/08/18 08:59 Last Admin: 12/12/17 08:40 Dose: 100 mg Levothyroxine Sodium (Synthroid) 0.05 mg PO QDAC [facility] Stop: 02/08/18 07:29 Last Admin: 12/13/17 06:34 Dose: 0.05 mg Lorazepam (Ativan) 0.5 mg PO Q4HR PRN; Protocol PRN Reason: Anxiety Stop: 01/08/18 23:32 Last Admin: 12/13/17 00:08 Dose: 0.5 mg Magnesium Hydroxide (Milk Of Magnesia) 30 ml PO DAILY PRN PRN Reason: Constipation Stop: 05/15/18 23:45 Megestrol Acetate (Megace) 400 mg PO DAILY [facility] Stop: 02/08/18 08:59 Last Admin: 12/12/17 08:40 Dose: 400 mg Quetiapine Fumarate (Seroquel) 12.5 mg PO BID [facility]E PRN Reason: Protocol Stop: 02/08/18 16:59 Last Admin: 12/12/17 16:21 Dose: 12.5 mg Senna (Senna) 17.2 mg PO HS [facility] Stop: 02/08/18 20:59 Last Admin: 12/12/17 21:02 Dose: 17.2 mg Vitamin B Complex/Vit C/Folic Acid (Vitamin B Complex W/Vitamin C) 1 tab PO DAILY [facility] Stop: 02/08/18 08:59 Last Admin: 12/12/17 08:40 Dose: 1 tab Zolpidem Tartrate (Ambien) 5 mg PO HS PRN PRN Reason: Insomnia Stop: 02/07/18 23:32 Last Admin: 12/13/17 00:09 Dose: 5 mg General: Alert, No acute distress HEENT: Atraumatic Neck: Supple, +2 carotid pulse wo bruit Cardiovascular: Regular rate, Normal S1, Normal S2 Lungs: Clear to auscultation Abdomen: Bowel sounds Extremities: Other (No edema) Neurological: Sensation intact Skin: no Rash Psych/Mental Status: Other (Confused, not oriented, agitated) - Procedures Procedures: Procedures Procedure Code Date OTHER GROUP THERAPY 94.44 10/14/10 RECREATIONAL THERAPY 93.81 10/14/10 Assessment/Plan - Assessment Assessment: Patient is awake, alert, calm in no acute distress. Dx: increased in agitation, UTI, Hypothyroidism, CKD, Polyarthritis - Plan Plan: Patient is under Psychiatric care. She is continue with SNF meds. Ceftriaxone is added. follow by nephro. Will continue to monitor.
[2017-12-13] MEDS: Vitamin B Complex w/Vitamin C Tab PO SCH (09:09)
--- NOTE | 2017-12-13 13:25 | General Progress Note ---
Subjective - Review of Systems Service Date: 12/13/17 Subjective: still agitated, cursing Objective - Results Result Diagrams: 12/09/17 20:17 12/09/17 20:17 Recent Labs: Laboratory Last Values WBC 7.4 Th/cmm (4.8-10.8) 12/09/17 20:17 RBC 3.64 Mil/cmm (3.80-5.20) L 12/09/17 20:17 Hgb 11.7 gm/dL (12-16) L 12/09/17 20:17 Hct 34.3 % (41.0-60) L 12/09/17 20:17 MCV 94.4 fl (81-100) 12/09/17 20:17 MCH 32.3 pg (27.0-31.0) H 12/09/17 20:17 MCHC Differential 34.2 pg (28.0-36.0) 12/09/17 20:17 RDW 12.1 % (11.5-20.0) 12/09/17 20:17 Plt Count 215 Th/cmm (150-400) 12/09/17 20:17 MPV 8.9 fl 12/09/17 20:17 Band Neutrophils % 1 % (0-10) 12/09/17 20:17 Neutrophils (Manual) 56 % (40-80) 12/09/17 20:17 Lymphocytes 35 % (20-50) 12/09/17 20:17 Monocytes 3 % (2-10) 12/09/17 20:17 Eosinophils 5 % (0-5) 12/09/17 20:17 Basophils 0 % (0-3) 12/09/17 20:17 Sodium 132 mEq/L (136-145) L 12/09/17 20:17 Potassium 4.3 mEq/L (3.5-5.1) 12/09/17 20:17 Chloride 103 mEq/L (98-107) 12/09/17 20:17 Carbon Dioxide 27.1 mEq/L (21.0-31.0) 12/09/17 20:17 Anion Gap 6.2 (7.0-16.0) L 12/09/17 20:17 BUN 41 mg/dL (7-25) H 12/09/17 20:17 Creatinine 2.5 mg/dL (0.6-1.2) H 12/09/17 20:17 Est GFR ( Amer) 24.5 ml/min (>90) 12/09/17 20:17 Est GFR (Non-Af Amer) 20.2 ml/min 12/09/17 20:17 BUN/Creatinine Ratio 16.4 12/09/17 20:17 Glucose 121 mg/dL (70-105) H 12/09/17 20:17 Calcium 10.7 mg/dL (8.6-10.3) H 12/09/17 20:17 Total Bilirubin 0.3 mg/dL (0.3-1.0) 12/09/17 20:17 AST 14 U/L (13-39) 12/09/17 20:17 ALT 9 U/L (7-52) 12/09/17 20: Alkaline Phosphatase 65 U/L (34-104) 12/09/17 20:17 Total Protein 6.9 gm/dL (6.0-8.3) 12/09/17 20:17 Albumin 3.9 gm/dL (3.7-5.3) 12/09/17 20:17 Globulin 3.0 gm/dL 12/09/17 20:17 Albumin/Globulin Ratio 1.3 (1.0-1.8) 12/09/17 20:17 TSH 1.71 uIU/ml (0.34-5.60) 12/09/17 20:17 Urine Source RANDOM 12/09/17 20:30 Urine Color YELLOW 12/09/17 20:30 Urine Clarity SLIGHT CLOUDY (CLEAR) H 12/09/17 20:30 Urine pH 7.5 (4.6 - 8.0) 12/09/17 20:30 Ur Specific [place] 1.010 (1.005-1.030) 12/09/17 20:30 Urine Protein 100 mg/dL (NEGATIVE) H 12/09/17 20:30 Urine Glucose (UA) NEGATIVE mg/dL (NEGATIVE) 12/09/17 20:30 Urine Ketones NEGATIVE mg/dL (NEGATIVE) 12/09/17 20:30 Urine Blood NEGATIVE (NEGATIVE) 12/09/17 20:30 Urine Nitrate NEGATIVE (NEGATIVE) 12/09/17 20:30 Urine Bilirubin NEGATIVE (NEGATIVE) 12/09/17 20:30 Urine Urobilinogen 0.2 E.U./dL (0.2 - 1.0) 12/09/17 20:30 Ur Leukocyte Esterase LARGE (NEGATIVE) H 12/09/17 20:30 Urine RBC 2-5 /hpf (0-5) 12/09/17 20:30 Urine WBC 10-25 /hpf (0-5) H 12/09/17 20:30 Ur Epithelial Cells OCCASIONAL /lpf (FEW) 12/09/17 20:30 Urine Bacteria FEW /hpf (NONE SEEN) 12/09/17 20:30 - Physical Exam Vitals and I&O: Vital Signs Temp 98.3 F 12/13/17 06:37 Pulse 80 12/13/17 06:37 Resp 19 12/13/17 10:42 BP 157/95 12/13/17 06:37 Pulse Ox 98 12/13/17 06:37 Intake & Output 12/12/17 12/13/17 12/13/17 18:59 06:59 18:59 Intake Total 850 120 Balance 850 120 Intake: Oral 850 120 Other: # Voids 3 3 # Bowel Movements 1 Stool Characteristics Soft Brown Active Medications: Current Medications Acetaminophen (Tylenol) 650 mg PO Q4HR PRN PRN Reason: Mild Pain / Temp above 100 Stop: 02/07/18 23:32 Ceftriaxone Sodium (Rocephin) 1 gm IM Q24HR [facility] Stop: 12/18/17 08:59 Last Admin: 12/13/17 09:15 Dose: 1 gm Cyanocobalamin (Vitamin B12) 100 mcg PO DAILY [facility] Stop: 02/08/18 08:59 Last Admin: 12/13/17 09:10 Dose: 100 mcg Docusate Sodium (Colace) 100 mg PO DAILY [facility] Stop: 02/08/18 08:59 Last Admin: 12/13/17 09:10 Dose: 100 mg Levothyroxine Sodium (Synthroid) 0.05 mg PO QDAC [facility] Stop: 02/08/18 07:29 Last Admin: 12/13/17 06:34 Dose: 0.05 mg Lorazepam (Ativan) 0.5 mg PO Q4HR PRN; Protocol PRN Reason: Anxiety Stop: 01/08/18 23:32 Last Admin: 12/13/17 00:08 Dose: 0.5 mg Magnesium Hydroxide (Milk Of Magnesia) 30 ml PO DAILY PRN PRN Reason: Constipation Stop: 02/07/18 23:45 Megestrol Acetate (Megace) 400 mg PO DAILY [facility] Stop: 02/08/18 08:59 Last Admin: 12/13/17 09:09 Dose: 400 mg Quetiapine Fumarate (Seroquel) 12.5 mg PO BID [facility] PRN Reason: Protocol Stop: 02/08/18 16:59 Last Admin: 12/13/17 09:10 Dose: 12.5 mg Senna (Senna) 17.2 mg PO HS [facility] Stop: 02/08/18 20:59 Last Admin: 12/12/17 21:02 Dose: 17.2 mg Vitamin B Complex/Vit C/Folic Acid (Vitamin B Complex W/Vitamin C) 1 tab PO DAILY [facility] Stop: 02/08/18 08:59 Last Admin: 12/13/17 09:09 Dose: 1 tab Zolpidem Tartrate (Ambien) 5 mg PO HS PRN PRN Reason: Insomnia Stop: 02/07/18 23:32 Last Admin: 12/13/17 00:09 Dose: 5 mg General: Alert, No acute distress HEENT: Atraumatic Neck: Supple, +2 carotid pulse wo bruit Cardiovascular: Regular rate, Normal S1, Normal S2 Lungs: Clear to auscultation Abdomen: Bowel sounds Extremities: Other (No edema) Neurological: Sensation intact Skin: no Rash Psych/Mental Status: Other (Confused, not oriented, agitated) - Procedures Procedures: Procedures Procedure Code Date OTHER GROUP THERAPY 94.44 10/14/10 RECREATIONAL THERAPY 93.81 10/14/10 Assessment/Plan - Assessment Assessment: CKD Acute decomp of Psychosis CAD Hypothyroid - Plan Plan: Current Medications Acetaminophen (Tylenol) 650 mg PO Q4HR PRN PRN Reason: Mild Pain / Temp above 100 Stop: 02/07/18 23:32 Cyanocobalamin (Vitamin B12) 100 mcg PO DAILY [facility] Stop: 02/08/18 08:59 Last Admin: 12/12/17 08:39 Dose: 100 mcg Docusate Sodium (Colace) 100 mg PO DAILY [facility] Stop: 02/08/18 08:59 Last Admin: 12/12/17 08:40 Dose: 100 mg Levothyroxine Sodium (Synthroid) 0.05 mg PO QDAC [facility] Stop: 02/08/18 07:29 Last Admin: 12/12/17 06:32 Dose: 0.05 mg Lorazepam (Ativan) 0.5 mg PO Q4HR PRN; Protocol PRN Reason: Anxiety Stop: 01/08/18 23:32 Magnesium Hydroxide (Milk Of Magnesia) 30 ml PO DAILY PRN PRN Reason: Constipation Stop: 02/07/18 23:45 Megestrol Acetate (Megace) 400 mg PO DAILY [facility] Stop: 02/08/18 08:59 Last Admin: 12/12/17 08:40 Dose: 400 mg Quetiapine Fumarate (Seroquel) 12.5 mg PO BID [facility] PRN Reason: Protocol Stop: 02/08/18 16:59 Last Admin: 12/12/17 08:40 Dose: 12.5 mg Senna (Senna) 17.2 mg PO HS [facility] Stop: 02/08/18 20:59 Last Admin: 12/11/17 21:41 Dose: 17.2 mg Vitamin B Complex/Vit C/Folic Acid (Vitamin B Complex W/Vitamin C) 1 tab PO DAILY [facility] Stop: 02/08/18 08:59 Last Admin: 12/12/17 08:40 Dose: 1 tab Zolpidem Tartrate (Ambien) 5 mg PO HS PRN PRN Reason: Insomnia Stop: 02/07/18 23:32 Lab - Result Diagrams 12/09/17 20:17 12/09/17 20:17 kidney fnc stable @ 2.5 which is her baseline encourage po intake
[2017-12-14] MEDS: Levothyroxine 0.05 Mg Tab PO SCH (06:32)
--- NOTE | 2017-12-14 07:03 | Progress Notes ---
DATE: 12/14/2017 SUBJECTIVE: Chart reviewed and the patient interviewed. Also discussed the patient's condition with the staff and reviewed records and labs. The patient is still suspicious and is still severely paranoid. The patient also is still restless and she is having difficulty with her mood and she still during my interview was uncooperative and she was speaking covering herself in a paranoid way and kept staring at me and sometimes she answered questions and sometimes she is not. The patient also still have episodes of anger and irritability, especially when staff tries to help her with her ADLs. Her agitation increased at night time. Otherwise, the patient continued to comply with taking her Seroquel with no side effects. ASSESSMENT: The patient is still paranoid and still psychotic. TREATMENT PLAN: We will increase Seroquel to 25 mg twice a day. Also, continue to monitor her behavior closely. Also, continue to work on her irritability and agitation and continue to follow up. JOB# [id number]
[2017-12-14 08:16] LABS: % BASOPHILS 0.5 % (0.0-2.0); % LYMPHOCYTES 25.1 % (20.0-50.0); % MONOCYTES 5.6 % (2.0-10.0); % NEUTROPHILS 66.8 % (40.0-80.0); EOSINOPHILE ABSOLUTE 0.2 Th/cmm (0.1-0.4); HEMATOCRIT 33.9 % (41.0-60); HEMOGLOBIN 11.2 gm/dL (12-16); LYMPHOCYTE ABSOLUTE 2.4 Th/cmm (1.5-3.0); MEAN CORPUSCULAR HEMOGLOBIN 31.6 pg (27.0-31.0); MEAN PLATELET VOLUME 9.5 fl; MONOCYTE ABSOLUTE 0.5 Th/cmm (0.3-1.0); NEUTROPHILE ABSOLUTE 6.4 Th/cmm (1.8-8.0); PLATELET COUNT 191 Th/cmm (150-400); RED BLOOD COUNT 3.54 Mil/cmm (3.80-5.20); RED CELL DISTRIBUTION WIDTH 12.3 % (11.5-20.0); WHITE BLOOD COUNT 9.5 Th/cmm (4.8-10.8)
[2017-12-14 08:39] LABS: ALB/GLOB RATIO 1.2 (1.0-1.8); ALBUMIN 3.5 gm/dL (3.7-5.3); ANION GAP 9.9 (7.0-16.0); BILIRUBIN,TOTAL 0.4 mg/dL (0.3-1.0); CALCIUM SERUM 10.7 mg/dL (8.6-10.3); CARBON DIOXIDE 29.2 mEq/L (21.0-31.0); CREATININE - SERUM 2.5 mg/dL (0.6-1.2); GFR AFRICAN-AMERICAN 24.5 ml/min (>90); GFR NON AFRICAN-AMERICAN 20.2 ml/min; POTASSIUM SERUM 5.1 mEq/L (3.5-5.1); TOTAL PROTEIN,SERUM 6.4 gm/dL (6.0-8.3)
--- NOTE | 2017-12-14 09:24 | General Progress Note ---
Subjective - Review of Systems Service Date: 12/14/17 Subjective: Incoherent Objective - Results Result Diagrams: 12/14/17 07:20 12/14/17 07:20 Recent Labs: Laboratory Last Values WBC 9.5 Th/cmm (4.8-10.8) 12/14/17 07:20 RBC 3.54 Mil/cmm (3.80-5.20) L 12/14/17 07:20 Hgb 11.2 gm/dL (12-16) L 12/14/17 07:20 Hct 33.9 % (41.0-60) L 12/14/17 07:20 MCV 96.0 fl (81-100) 12/14/17 07:20 MCH 31.6 pg (27.0-31.0) H 12/14/17 07:20 MCHC Differential 33.0 pg (28.0-36.0) 12/14/17 07:20 RDW 12.3 % (11.5-20.0) 12/14/17 07:20 Plt Count 191 Th/cmm (150-400) 12/14/17 07:20 MPV 9.5 fl 12/14/17 07:20 Neutrophils % 66.8 % (40.0-80.0) 12/14/17 07:20 Band Neutrophils % 1 % (0-10) 12/09/17 20:17 Lymphocytes % 25.1 % (20.0-50.0) 12/14/17 07:20 Monocytes % 5.6 % (2.0-10.0) 12/14/17 07:20 Eosinophils % 2.0 % (0.0-5.0) 12/14/17 07:20 Basophils % 0.5 % (0.0-2.0) 12/14/17 07:20 Neutrophils (Manual) 56 % (40-80) 12/09/17 20:17 Lymphocytes 35 % (20-50) 12/09/17 20:17 Monocytes 3 % (2-10) 12/09/17 20:17 Eosinophils 5 % (0-5) 12/09/17 20:17 Basophils 0 % (0-3) 12/09/17 20:17 Sodium 141 mEq/L (136-145) 12/14/17 07:20 Potassium 5.1 mEq/L (3.5-5.1) 12/14/17 07:20 Chloride 107 mEq/L (98-107) 12/14/17 07:20 Carbon Dioxide 29.2 mEq/L (21.0-31.0) 12/14/17 07:20 Anion Gap 9.9 (7.0-16.0) 12/14/17 07:20 BUN 43 mg/dL (7-25) H 12/14/17 07:20 Creatinine 2.5 mg/dL (0.6-1.2) H 12/14/17 07:20 Est GFR ( Amer) 24.5 ml/min (>90) 12/14/17 07:20 Est GFR (Non-Af Amer) 20.2 ml/min 12/14/17 07:20 BUN/Creatinine Ratio 17.2 12/14/17 07:20 Glucose 94 mg/dL (70-105) 12/14/17 07:20 Calcium 10.7 mg/dL (8.6-10.3) H 12/14/17 07:20 Total Bilirubin 0.4 mg/dL (0.3-1.0) 12/14/17 07:20 AST 12 U/L (13-39) L 12/14/17 07:20 ALT 7 U/L (7-52) 12/14/17 07:20 Alkaline Phosphatase 43 U/L (34-104) 12/14/17 07:20 Total Protein 6.4 gm/dL (6.0-8.3) 12/14/17 07:20 Albumin 3.5 gm/dL (3.7-5.3) L 12/14/17 07:20 Globulin 2.9 gm/dL 12/14/17 07:20 Albumin/Globulin Ratio 1.2 (1.0-1.8) 12/14/17 07:20 TSH 1.71 uIU/ml (0.34-5.60) 12/09/17 20:17 Urine Source RANDOM 12/09/17 20:30 Urine Color YELLOW 12/09/17 20:30 Urine Clarity SLIGHT CLOUDY (CLEAR) H 12/09/17 20:30 Urine pH 7.5 (4.6 - 8.0) 12/09/17 20:30 Ur Specific [place] 1.010 (1.005-1.030) 12/09/17 20:30 Urine Protein 100 mg/dL (NEGATIVE) H 12/09/17 20:30 Urine Glucose (UA) NEGATIVE mg/dL (NEGATIVE) 12/09/17 20:30 Urine Ketones NEGATIVE mg/dL (NEGATIVE) 12/09/17 20:30 Urine Blood NEGATIVE (NEGATIVE) 12/09/17 20:30 Urine Nitrate NEGATIVE (NEGATIVE) 12/09/17 20:30 Urine Bilirubin NEGATIVE (NEGATIVE) 12/09/17 20:30 Urine Urobilinogen 0.2 E.U./dL (0.2 - 1.0) 12/09/17 20:30 Ur Leukocyte Esterase LARGE (NEGATIVE) H 12/09/17 20:30 Urine RBC 2-5 /hpf (0-5) 12/09/17 20:30 Urine WBC 10-25 /hpf (0-5) H 12/09/17 20:30 Ur Epithelial Cells OCCASIONAL /lpf (FEW) 12/09/17 20:30 Urine Bacteria FEW /hpf (NONE SEEN) 12/09/17 20:30 - Physical Exam Vitals and I&O: Vital Signs Temp 97.4 F 12/14/17 06:40 Pulse 74 12/14/17 06:40 Resp 18 12/14/17 06:40 BP 139/75 12/14/17 06:40 Pulse Ox 99 12/14/17 06:40 Intake & Output 12/13/17 12/14/17 12/14/17 18:59 06:59 18:59 Intake Total 900 240 Balance 900 240 Intake: Oral 900 240 Other: # Voids 3 3 # Bowel Movements 1 Stool Characteristics Soft Soft Brown Active Medications: Current Medications Acetaminophen (Tylenol) 650 mg PO Q4HR PRN PRN Reason: Mild Pain / Temp above 100 Stop: 02/07/18 23:32 Ceftriaxone Sodium (Rocephin) 1 gm IM Q24HR [facility] Stop: 12/18/17 08:59 Last Admin: 12/13/17 09:15 Dose: 1 gm Cyanocobalamin (Vitamin B12) 100 mcg PO DAILY [facility] Stop: 02/08/18 08:59 Last Admin: 12/13/17 09:10 Dose: 100 mcg Docusate Sodium (Colace) 100 mg PO DAILY [facility] Stop: 02/08/18 08:59 Last Admin: 12/13/17 09:10 Dose: 100 mg Levothyroxine Sodium (Synthroid) 0.05 mg PO QDAC [facility] Stop: 02/08/18 07:29 Last Admin: 12/14/17 06:32 Dose: 0.05 mg Lorazepam (Ativan) 0.5 mg PO Q4HR PRN; Protocol PRN Reason: Anxiety Stop: 01/08/18 23:32 Last Admin: 12/13/17 00:08 Dose: 0.5 mg Magnesium Hydroxide (Milk Of Magnesia) 30 ml PO DAILY PRN PRN Reason: Constipation Stop: 02/07/18 23:45 Megestrol Acetate (Megace) 400 mg PO DAILY [facility] Stop: 02/08/18 08:59 Last Admin: 12/13/17 09:09 Dose: 400 mg Quetiapine Fumarate (Seroquel) 25 mg PO BID [facility] PRN Reason: Protocol Stop: 02/12/18 06:32 Senna (Senna) 17.2 mg PO HS [facility] Stop: 02/08/18 20:59 Last Admin: 12/13/17 21:10 Dose: 17.2 mg Vitamin B Complex/Vit C/Folic Acid (Vitamin B Complex W/Vitamin C) 1 tab PO DAILY [facility] Stop: 02/08/18 08:59 Last Admin: 12/13/17 09:09 Dose: 1 tab Zolpidem Tartrate (Ambien) 5 mg PO HS PRN PRN Reason: Insomnia Stop: 02/07/18 23:32 Last Admin: 12/13/17 00:09 Dose: 5 mg General: Alert, No acute distress HEENT: Atraumatic Neck: Supple, +2 carotid pulse wo bruit Cardiovascular: Regular rate, Normal S1, Normal S2 Lungs: Clear to auscultation Abdomen: Bowel sounds Extremities: Other (No edema) Neurological: Sensation intact Skin: no Rash Psych/Mental Status: Other (Confused, not oriented, agitated) - Procedures Procedures: Procedures Procedure Code Date OTHER GROUP THERAPY 94.44 10/14/10 RECREATIONAL THERAPY 93.81 10/14/10 Assessment/Plan - Assessment Assessment: Patient is awake, alert, calm in no acute distress. Dx: increased in agitation, UTI, Hypothyroidism, CKD, Polyarthritis - Plan Plan: Patient is under Psychiatric care. She is continue with SNF meds. Ceftriaxone is added. Creatinine still high. follow by nephro. Will continue to monitor.
[2017-12-14] MEDS: Vitamin B Complex w/Vitamin C Tab PO SCH (09:27)
--- NOTE | 2017-12-14 15:54 | General Progress Note ---
Subjective - Review of Systems Service Date: 12/14/17 Subjective: still agitated, paranoid Objective - Results Result Diagrams: 12/14/17 07:20 12/14/17 07:20 Recent Labs: Laboratory Last Values WBC 9.5 Th/cmm (4.8-10.8) 12/14/17 07:20 RBC 3.54 Mil/cmm (3.80-5.20) L 12/14/17 07:20 Hgb 11.2 gm/dL (12-16) L 12/14/17 07:20 Hct 33.9 % (41.0-60) L 12/14/17 07:20 MCV 96.0 fl (81-100) 12/14/17 07:20 MCH 31.6 pg (27.0-31.0) H 12/14/17 07:20 MCHC Differential 33.0 pg (28.0-36.0) 12/14/17 07:20 RDW 12.3 % (11.5-20.0) 12/14/17 07:20 Plt Count 191 Th/cmm (150-400) 12/14/17 07:20 MPV 9.5 fl 12/14/17 07:20 Neutrophils % 66.8 % (40.0-80.0) 12/14/17 07:20 Band Neutrophils % 1 % (0-10) 12/09/17 20:17 Lymphocytes % 25.1 % (20.0-50.0) 12/14/17 07:20 Monocytes % 5.6 % (2.0-10.0) 12/14/17 07:20 Eosinophils % 2.0 % (0.0-5.0) 12/14/17 07:20 Basophils % 0.5 % (0.0-2.0) 12/14/17 07:20 Neutrophils (Manual) 56 % (40-80) 12/09/17 20:17 Lymphocytes 35 % (20-50) 12/09/17 20:17 Monocytes 3 % (2-10) 12/09/17 20:17 Eosinophils 5 % (0-5) 12/09/17 20:17 Basophils 0 % (0-3) 12/09/17 20:17 Sodium 141 mEq/L (136-145) 12/14/17 07:20 Potassium 5.1 mEq/L (3.5-5.1) 12/14/17 07:20 Chloride 107 mEq/L (98-107) 12/14/17 07:20 Carbon Dioxide 29.2 mEq/L (21.0-31.0) 12/14/17 07:20 Anion Gap 9.9 (7.0-16.0) 12/14/17 07:20 BUN 43 mg/dL (7-25) H 12/14/17 07:20 Creatinine 2.5 mg/dL (0.6-1.2) H 12/14/17 07:20 Est GFR ( Amer) 24.5 ml/min (>90) 12/14/17 07:20 Est GFR (Non-Af Amer) 20.2 ml/min 12/14/17 07:20 BUN/Creatinine Ratio 17.2 12/14/17 07:20 Glucose 94 mg/dL (70-105) 12/14/17 07:20 Calcium 10.7 mg/dL (8.6-10.3) H 12/14/17 07:20 Total Bilirubin 0.4 mg/dL (0.3-1.0) 12/14/17 07:20 AST 12 U/L (13-39) L 12/14/17 07:20 ALT 7 U/L (7-52) 12/14/17 07:20 Alkaline Phosphatase 43 U/L (34-104) 12/14/17 07:20 Total Protein 6.4 gm/dL (6.0-8.3) 12/14/17 07:20 Albumin 3.5 gm/dL (3.7-5.3) L 12/14/17 07:20 Globulin 2.9 gm/dL 12/14/17 07:20 Albumin/Globulin Ratio 1.2 (1.0-1.8) 12/14/17 07:20 TSH 1.71 uIU/ml (0.34-5.60) 12/09/17 20:17 Urine Source RANDOM 12/09/17 20:30 Urine Color YELLOW 12/09/17 20:30 Urine Clarity SLIGHT CLOUDY (CLEAR) H 12/09/17 20:30 Urine pH 7.5 (4.6 - 8.0) 12/09/17 20:30 Ur Specific [place] 1.010 (1.005-1.030) 12/09/17 20:30 Urine Protein 100 mg/dL (NEGATIVE) H 12/09/17 20:30 Urine Glucose (UA) NEGATIVE mg/dL (NEGATIVE) 12/09/17 20:30 Urine Ketones NEGATIVE mg/dL (NEGATIVE) 12/09/17 20:30 Urine Blood NEGATIVE (NEGATIVE) 12/09/17 20:30 Urine Nitrate NEGATIVE (NEGATIVE) 12/09/17 20:30 Urine Bilirubin NEGATIVE (NEGATIVE) 12/09/17 20:30 Urine Urobilinogen 0.2 E.U./dL (0.2 - 1.0) 12/09/17 20:30 Ur Leukocyte Esterase LARGE (NEGATIVE) H 12/09/17 20:30 Urine RBC 2-5 /hpf (0-5) 12/09/17 20:30 Urine WBC 10-25 /hpf (0-5) H 12/09/17 20:30 Ur Epithelial Cells OCCASIONAL /lpf (FEW) 12/09/17 20:30 Urine Bacteria FEW /hpf (NONE SEEN) 12/09/17 20:30 - Physical Exam Vitals and I&O: Vital Signs Temp 97.4 F 12/14/17 06:40 Pulse 74 12/14/17 06:40 Resp 18 12/14/17 06:40 BP 139/75 12/14/17 06:40 Pulse Ox 99 12/14/17 06:40 Intake & Output 12/13/17 12/14/17 12/14/17 18:59 06:59 18:59 Intake Total 900 240 Balance 900 240 Intake: Oral 900 240 Other: # Voids 3 3 # Bowel Movements 1 Stool Characteristics Soft Soft Brown Active Medications: Current Medications Acetaminophen (Tylenol) 650 mg PO Q4HR PRN PRN Reason: Mild Pain / Temp above 100 Stop: 02/07/18 23:32 Ceftriaxone Sodium (Rocephin) 1 gm IM Q24HR [facility] Stop: 12/18/17 08:59 Last Admin: 12/14/17 09:28 Dose: 1 gm Cyanocobalamin (Vitamin B12) 100 mcg PO DAILY [facility] Stop: 02/08/18 08:59 Last Admin: 12/14/17 09:31 Dose: 100 mcg Docusate Sodium (Colace) 100 mg PO DAILY [facility] Stop: 02/08/18 08:59 Last Admin: 12/14/17 09:28 Dose: 100 mg Levothyroxine Sodium (Synthroid) 0.05 mg PO QDAC [facility] Stop: 02/08/18 07:29 Last Admin: 12/14/17 06:32 Dose: 0.05 mg Lorazepam (Ativan) 0.5 mg PO Q4HR PRN; Protocol PRN Reason: Anxiety Stop: 01/08/18 23:32 Last Admin: 12/13/17 00:08 Dose: 0.5 mg Magnesium Hydroxide (Milk Of Magnesia) 30 ml PO DAILY PRN PRN Reason: Constipation Stop: 02/07/18 23:45 Megestrol Acetate (Megace) 400 mg PO DAILY [facility] Stop: 02/08/18 08:59 Last Admin: 12/14/17 09:28 Dose: 400 mg Quetiapine Fumarate (Seroquel) 25 mg PO BID [facility] PRN Reason: Protocol Stop: 02/12/18 06:32 Last Admin: 12/14/17 09:28 Dose: 25 mg Senna (Senna) 17.2 mg PO HS [facility] Stop: 02/08/18 20:59 Last Admin: 12/13/17 21:10 Dose: 17.2 mg Vitamin B Complex/Vit C/Folic Acid (Vitamin B Complex W/Vitamin C) 1 tab PO DAILY [facility] Stop: 02/08/18 08:59 Last Admin: 12/14/17 09:27 Dose: 1 tab Zolpidem Tartrate (Ambien) 5 mg PO HS PRN PRN Reason: Insomnia Stop: 02/07/18 23:32 Last Admin: 12/13/17 00:09 Dose: 5 mg General: Alert, No acute distress HEENT: Atraumatic Neck: Supple, +2 carotid pulse wo bruit Cardiovascular: Regular rate, Normal S1, Normal S2 Lungs: Clear to auscultation Abdomen: Bowel sounds Extremities: Other (No edema) Neurological: Sensation intact Skin: no Rash Psych/Mental Status: Other (Confused, not oriented, agitated) - Procedures Procedures: Procedures Procedure Code Date OTHER GROUP THERAPY 94.44 10/14/10 RECREATIONAL THERAPY 93.81 10/14/10 Assessment/Plan - Assessment Assessment: CKD Acute decomp of Psychosis CAD Hypothyroid - Plan Plan: Current Medications Acetaminophen (Tylenol) 650 mg PO Q4HR PRN PRN Reason: Mild Pain / Temp above 100 Stop: 02/07/18 23:32 Cyanocobalamin (Vitamin B12) 100 mcg PO DAILY [facility] Stop: 02/08/18 08:59 Last Admin: 12/12/17 08:39 Dose: 100 mcg Docusate Sodium (Colace) 100 mg PO DAILY [facility] Stop: 02/08/18 08:59 Last Admin: 12/12/17 08:40 Dose: 100 mg Levothyroxine Sodium (Synthroid) 0.05 mg PO QDAC [facility] Stop: 02/08/18 07:29 Last Admin: 12/12/17 06:32 Dose: 0.05 mg Lorazepam (Ativan) 0.5 mg PO Q4HR PRN; Protocol PRN Reason: Anxiety Stop: 01/08/18 23:32 Magnesium Hydroxide (Milk Of Magnesia) 30 ml PO DAILY PRN PRN Reason: Constipation Stop: 02/07/18 23:45 Megestrol Acetate (Megace) 400 mg PO DAILY [facility] Stop: 02/08/18 08:59 Last Admin: 12/12/17 08:40 Dose: 400 mg Quetiapine Fumarate (Seroquel) 12.5 mg PO BID [facility] PRN Reason: Protocol Stop: 02/08/18 16:59 Last Admin: 12/12/17 08:40 Dose: 12.5 mg Senna (Senna) 17.2 mg PO HS [facility] Stop: 02/08/18 20:59 Last Admin: 12/11/17 21:41 Dose: 17.2 mg Vitamin B Complex/Vit C/Folic Acid (Vitamin B Complex W/Vitamin C) 1 tab PO DAILY [facility] Stop: 02/08/18 08:59 Last Admin: 12/12/17 08:40 Dose: 1 tab Zolpidem Tartrate (Ambien) 5 mg PO HS PRN PRN Reason: Insomnia Stop: 02/07/18 23:32 Lab - Result Diagrams 12/09/17 20:17 12/09/17 20:17 kidney fnc stable @ 2.5 which is her baseline encourage po intake
[2017-12-15] MEDS: Levothyroxine 0.05 Mg Tab PO SCH (06:30)
[2017-12-15] MEDS: Vitamin B Complex w/Vitamin C Tab PO SCH (09:35)
--- NOTE | 2017-12-15 10:04 | General Progress Note ---
Subjective - Review of Systems Service Date: 12/15/17 Subjective: Incoherent Objective - Results Result Diagrams: 12/14/17 07:20 12/14/17 07:20 Recent Labs: Laboratory Last Values WBC 9.5 Th/cmm (4.8-10.8) 12/14/17 07:20 RBC 3.54 Mil/cmm (3.80-5.20) L 12/14/17 07:20 Hgb 11.2 gm/dL (12-16) L 12/14/17 07:20 Hct 33.9 % (41.0-60) L 12/14/17 07:20 MCV 96.0 fl (81-100) 12/14/17 07:20 MCH 31.6 pg (27.0-31.0) H 12/14/17 07:20 MCHC Differential 33.0 pg (28.0-36.0) 12/14/17 07:20 RDW 12.3 % (11.5-20.0) 12/14/17 07:20 Plt Count 191 Th/cmm (150-400) 12/14/17 07:20 MPV 9.5 fl 12/14/17 07:20 Neutrophils % 66.8 % (40.0-80.0) 12/14/17 07:20 Band Neutrophils % 1 % (0-10) 12/09/17 20:17 Lymphocytes % 25.1 % (20.0-50.0) 12/14/17 07:20 Monocytes % 5.6 % (2.0-10.0) 12/14/17 07:20 Eosinophils % 2.0 % (0.0-5.0) 12/14/17 07:20 Basophils % 0.5 % (0.0-2.0) 12/14/17 07:20 Neutrophils (Manual) 56 % (40-80) 12/09/17 20:17 Lymphocytes 35 % (20-50) 12/09/17 20:17 Monocytes 3 % (2-10) 12/09/17 20:17 Eosinophils 5 % (0-5) 12/09/17 20:17 Basophils 0 % (0-3) 12/09/17 20:17 Sodium 141 mEq/L (136-145) 12/14/17 07:20 Potassium 5.1 mEq/L (3.5-5.1) 12/14/17 07:20 Chloride 107 mEq/L (98-107) 12/14/17 07:20 Carbon Dioxide 29.2 mEq/L (21.0-31.0) 12/14/17 07:20 Anion Gap 9.9 (7.0-16.0) 12/14/17 07:20 BUN 43 mg/dL (7-25) H 12/14/17 07:20 Creatinine 2.5 mg/dL (0.6-1.2) H 12/14/17 07:20 Est GFR ( Amer) 24.5 ml/min (>90) 12/14/17 07:20 Est GFR (Non-Af Amer) 20.2 ml/min 12/14/17 07:20 BUN/Creatinine Ratio 17.2 12/14/17 07:20 Glucose 94 mg/dL (70-105) 12/14/17 07:20 Calcium 10.7 mg/dL (8.6-10.3) H 12/14/17 07:20 Total Bilirubin 0.4 mg/dL (0.3-1.0) 12/14/17 07:20 AST 12 U/L (13-39) L 12/14/17 07:20 ALT 7 U/L (7-52) 12/14/17 07:20 Alkaline Phosphatase 43 U/L (34-104) 12/14/17 07:20 Total Protein 6.4 gm/dL (6.0-8.3) 12/14/17 07:20 Albumin 3.5 gm/dL (3.7-5.3) L 12/14/17 07:20 Globulin 2.9 gm/dL 12/14/17 07:20 Albumin/Globulin Ratio 1.2 (1.0-1.8) 12/14/17 07:20 TSH 1.71 uIU/ml (0.34-5.60) 12/09/17 20:17 Urine Source RANDOM 12/09/17 20:30 Urine Color YELLOW 12/09/17 20:30 Urine Clarity SLIGHT CLOUDY (CLEAR) H 12/09/17 20:30 Urine pH 7.5 (4.6 - 8.0) 12/09/17 20:30 Ur Specific [place] 1.010 (1.005-1.030) 12/09/17 20:30 Urine Protein 100 mg/dL (NEGATIVE) H 12/09/17 20:30 Urine Glucose (UA) NEGATIVE mg/dL (NEGATIVE) 12/09/17 20:30 Urine Ketones NEGATIVE mg/dL (NEGATIVE) 12/09/17 20:30 Urine Blood NEGATIVE (NEGATIVE) 12/09/17 20:30 Urine Nitrate NEGATIVE (NEGATIVE) 12/09/17 20:30 Urine Bilirubin NEGATIVE (NEGATIVE) 12/09/17 20:30 Urine Urobilinogen 0.2 E.U./dL (0.2 - 1.0) 12/09/17 20:30 Ur Leukocyte Esterase LARGE (NEGATIVE) H 12/09/17 20:30 Urine RBC 2-5 /hpf (0-5) 12/09/17 20:30 Urine WBC 10-25 /hpf (0-5) H 12/09/17 20:30 Ur Epithelial Cells OCCASIONAL /lpf (FEW) 12/09/17 20:30 Urine Bacteria FEW /hpf (NONE SEEN) 12/09/17 20:30 - Physical Exam Vitals and I&O: Vital Signs Temp 98 F 12/15/17 06:30 Pulse 66 12/15/17 06:30 Resp 18 12/15/17 06:30 BP 145/69 12/15/17 06:30 Pulse Ox 96 12/15/17 06:30 Intake & Output 12/14/17 12/15/17 12/15/17 18:59 06:59 18:59 Intake Total 1140 Balance 1140 Intake: Oral 1140 Other: # Voids 3 Stool Characteristics Soft Active Medications: Current Medications Acetaminophen (Tylenol) 650 mg PO Q4HR PRN PRN Reason: Mild Pain / Temp above 100 Stop: 02/07/18 23:32 Ceftriaxone Sodium (Rocephin) 1 gm IM Q24HR [facility] Stop: 12/18/17 08:59 Last Admin: 12/14/17 09:28 Dose: 1 gm Cyanocobalamin (Vitamin B12) 100 mcg PO DAILY [facility] Stop: 02/08/18 08:59 Last Admin: 12/14/17 09:31 Dose: 100 mcg Docusate Sodium (Colace) 100 mg PO DAILY [facility] Stop: 02/08/18 08:59 Last Admin: 12/15/17 09:35 Dose: 100 mg Levothyroxine Sodium (Synthroid) 0.05 mg PO QDAC [facility] Stop: 02/08/18 07:29 Last Admin: 12/15/17 06:30 Dose: 0.05 mg Lorazepam (Ativan) 0.5 mg PO Q4HR PRN; Protocol PRN Reason: Anxiety Stop: 01/08/18 23:32 Last Admin: 12/13/17 00:08 Dose: 0.5 mg Magnesium Hydroxide (Milk Of Magnesia) 30 ml PO DAILY PRN PRN Reason: Constipation Stop: 02/07/18 23:45 Megestrol Acetate (Megace) 400 mg PO DAILY [facility] Stop: 02/08/18 08:59 Last Admin: 12/15/17 09:35 Dose: 400 mg Quetiapine Fumarate (Seroquel) 37.5 mg PO BID [facility] PRN Reason: Protocol Stop: 02/13/18 07:03 Senna (Senna) 17.2 mg PO HS [facility] Stop: 02/08/18 20:59 Last Admin: 12/14/17 20:39 Dose: 17.2 mg Vitamin B Complex/Vit C/Folic Acid (Vitamin B Complex W/Vitamin C) 1 tab PO DAILY [facility] Stop: 02/08/18 08:59 Last Admin: 12/15/17 09:35 Dose: 1 tab Zolpidem Tartrate (Ambien) 5 mg PO HS PRN PRN Reason: Insomnia Stop: 02/07/18 23:32 Last Admin: 12/13/17 00:09 Dose: 5 mg General: Alert, No acute distress HEENT: Atraumatic Neck: Supple, +2 carotid pulse wo bruit Cardiovascular: Regular rate, Normal S1, Normal S2 Lungs: Clear to auscultation Abdomen: Bowel sounds Extremities: Other (No edema) Neurological: Sensation intact Skin: no Rash Psych/Mental Status: Other (Confused, not oriented, agitated) - Procedures Procedures: Procedures Procedure Code Date OTHER GROUP THERAPY 94.44 10/14/10 RECREATIONAL THERAPY 93.81 10/14/10 Assessment/Plan - Assessment Assessment: Patient is awake, alert, calm in no acute distress. Dx: increased in agitation, UTI, Hypothyroidism, CKD, Polyarthritis - Plan Plan: Patient is under Psychiatric care. She is continue with SNF meds. Ceftriaxone is added. Creatinine still high. follow by nephro. Will continue to monitor. Nutritional Asmnt/Malnutr-PDOC - Dietary Evaluation Malnutrition Findings (Please click <Entered> for more info): Nutritional Asmnt/Malnutrition Start: 12/14/17 16: 58 Text: Status: Complete Freq: Document 12/14/17 16:58 MONIQUE (Rec: 12/14/17 17:05 [id number] [email or web address]) Nutritional Asmnt/Malnutrition Patient General Information Nutritional Screening Moderate Risk Diagnosis psychosis NOS Pertinent Medical Hx/Surgical Hx CAD, dementia, schizophrenia, weakness, chronic renal insuff Subjective Information Pt seen sleeping at time of visit. Per EMR, PO intake 75%. Current Diet Order/ Nutrition Support mech soft chopped, santosh, high protein nourishment TID Pertinent Medications vit B12, colace, synthroid, megace, seroquel, senna, vit B complex, with vit C Pertinent Labs 12/14BUN 43, Cr 2.5, glucose 94 , ca 10.7 Nutritional Hx/Data Height 1.6 m Height (Calculated Centimeters) 160.0 Current Weight (lbs) 45.359 kg Weight (Calculated Kilograms) 45.4 Weight (Calculated Grams) 44232.2 [place] Body Weight 115 Body Mass Index (BMI) 17.6 Weight Status Underweight GI Symptoms GI Symptoms None Last BM 12/13 x 2 Difficult in: None Skin Integrity/Comment: intact Nutritional Problem No current Nutrition Prob Problem N/A Intervention/Recommendation Comments 1. Continue with current diet as ordered. 2. Monitor PO intake, wt, labs and skin integrity 3. F/U as low risk in 7 days, 12/21 Expected Outcomes/Goals Expected Outcomes/Goals 1. PO intake to meet at least 75% of nutritional needs. 2. Wt stability, skin to remain intact, labs to approach WNL.
[2017-12-15] MEDS ORDERED: Probiotic Screen MC PRN (12:00)
--- NOTE | 2017-12-15 13:08 | General Progress Note ---
Subjective - Review of Systems Service Date: 12/15/17 Subjective: still agitated, paranoid Objective - Results Result Diagrams: 12/14/17 07:20 12/14/17 07:20 Recent Labs: Laboratory Last Values WBC 9.5 Th/cmm (4.8-10.8) 12/14/17 07:20 RBC 3.54 Mil/cmm (3.80-5.20) L 12/14/17 07:20 Hgb 11.2 gm/dL (12-16) L 12/14/17 07:20 Hct 33.9 % (41.0-60) L 12/14/17 07:20 MCV 96.0 fl (81-100) 12/14/17 07:20 MCH 31.6 pg (27.0-31.0) H 12/14/17 07:20 MCHC Differential 33.0 pg (28.0-36.0) 12/14/17 07:20 RDW 12.3 % (11.5-20.0) 12/14/17 07:20 Plt Count 191 Th/cmm (150-400) 12/14/17 07:20 MPV 9.5 fl 12/14/17 07:20 Neutrophils % 66.8 % (40.0-80.0) 12/14/17 07:20 Band Neutrophils % 1 % (0-10) 12/09/17 20:17 Lymphocytes % 25.1 % (20.0-50.0) 12/14/17 07:20 Monocytes % 5.6 % (2.0-10.0) 12/14/17 07:20 Eosinophils % 2.0 % (0.0-5.0) 12/14/17 07:20 Basophils % 0.5 % (0.0-2.0) 12/14/17 07:20 Neutrophils (Manual) 56 % (40-80) 12/09/17 20:17 Lymphocytes 35 % (20-50) 12/09/17 20:17 Monocytes 3 % (2-10) 12/09/17 20:17 Eosinophils 5 % (0-5) 12/09/17 20:17 Basophils 0 % (0-3) 12/09/17 20:17 Sodium 141 mEq/L (136-145) 12/14/17 07:20 Potassium 5.1 mEq/L (3.5-5.1) 12/14/17 07:20 Chloride 107 mEq/L (98-107) 12/14/17 07:20 Carbon Dioxide 29.2 mEq/L (21.0-31.0) 12/14/17 07:20 Anion Gap 9.9 (7.0-16.0) 12/14/17 07:20 BUN 43 mg/dL (7-25) H 12/14/17 07:20 Creatinine 2.5 mg/dL (0.6-1.2) H 12/14/17 07:20 Est GFR ( Amer) 24.5 ml/min (>90) 12/14/17 07:20 Est GFR (Non-Af Amer) 20.2 ml/min 12/14/17 07:20 BUN/Creatinine Ratio 17.2 12/14/17 07:20 Glucose 94 mg/dL (70-105) 12/14/17 07:20 Calcium 10.7 mg/dL (8.6-10.3) H 12/14/17 07:20 Total Bilirubin 0.4 mg/dL (0.3-1.0) 12/14/17 07:20 AST 12 U/L (13-39) L 12/14/17 07:20 ALT 7 U/L (7-52) 12/14/17 07:20 Alkaline Phosphatase 43 U/L (34-104) 12/14/17 07:20 Total Protein 6.4 gm/dL (6.0-8.3) 12/14/17 07:20 Albumin 3.5 gm/dL (3.7-5.3) L 12/14/17 07:20 Globulin 2.9 gm/dL 12/14/17 07:20 Albumin/Globulin Ratio 1.2 (1.0-1.8) 12/14/17 07:20 TSH 1.71 uIU/ml (0.34-5.60) 12/09/17 20:17 Urine Source RANDOM 12/09/17 20:30 Urine Color YELLOW 12/09/17 20:30 Urine Clarity SLIGHT CLOUDY (CLEAR) H 12/09/17 20:30 Urine pH 7.5 (4.6 - 8.0) 12/09/17 20:30 Ur Specific [place] 1.010 (1.005-1.030) 12/09/17 20:30 Urine Protein 100 mg/dL (NEGATIVE) H 12/09/17 20:30 Urine Glucose (UA) NEGATIVE mg/dL (NEGATIVE) 12/09/17 20:30 Urine Ketones NEGATIVE mg/dL (NEGATIVE) 12/09/17 20:30 Urine Blood NEGATIVE (NEGATIVE) 12/09/17 20:30 Urine Nitrate NEGATIVE (NEGATIVE) 12/09/17 20:30 Urine Bilirubin NEGATIVE (NEGATIVE) 12/09/17 20:30 Urine Urobilinogen 0.2 E.U./dL (0.2 - 1.0) 12/09/17 20:30 Ur Leukocyte Esterase LARGE (NEGATIVE) H 12/09/17 20:30 Urine RBC 2-5 /hpf (0-5) 12/09/17 20:30 Urine WBC 10-25 /hpf (0-5) H 12/09/17 20:30 Ur Epithelial Cells OCCASIONAL /lpf (FEW) 12/09/17 20:30 Urine Bacteria FEW /hpf (NONE SEEN) 12/09/17 20:30 - Physical Exam Vitals and I&O: Vital Signs Temp 98 F 12/15/17 06:30 Pulse 66 12/15/17 06:30 Resp 18 12/15/17 06:30 BP 145/69 12/15/17 06:30 Pulse Ox 96 12/15/17 06:30 Intake & Output 12/14/17 12/15/17 12/15/17 18:59 06:59 18:59 Intake Total 1140 Balance 1140 Intake: Oral 1140 Other: # Voids 3 Stool Characteristics Soft Active Medications: Current Medications Acetaminophen (Tylenol) 650 mg PO Q4HR PRN PRN Reason: Mild Pain / Temp above 100 Stop: 02/07/18 23:32 Ceftriaxone Sodium (Rocephin) 1 gm IM Q24HR [facility] Stop: 12/18/17 08:59 Last Admin: 12/15/17 09:30 Dose: 1 gm Cyanocobalamin (Vitamin B12) 100 mcg PO DAILY [facility] Stop: 02/08/18 08:59 Last Admin: 12/15/17 11:34 Dose: Not Given Docusate Sodium (Colace) 100 mg PO DAILY [facility] Stop: 02/08/18 08:59 Last Admin: 12/15/17 09:35 Dose: 100 mg Lactobacillus Rhamnosus (Culturelle 15b) 1 each PO DAILY [facility] Stop: 02/14/18 08:59 Levothyroxine Sodium (Synthroid) 0.05 mg PO QDAC [facility] Stop: 02/08/18 07:29 Last Admin: 12/15/17 06:30 Dose: 0.05 mg Lorazepam (Ativan) 0.5 mg PO Q4HR PRN; Protocol PRN Reason: Anxiety Stop: 01/08/18 23:32 Last Admin: 12/13/17 00:08 Dose: 0.5 mg Magnesium Hydroxide (Milk Of Magnesia) 30 ml PO DAILY PRN PRN Reason: Constipation Stop: 02/07/18 23:45 Megestrol Acetate (Megace) 400 mg PO DAILY [facility] Stop: 02/08/18 08:59 Last Admin: 12/15/17 09:35 Dose: 400 mg Miscellaneous (Probiotic Screen) 1 ea MC PRN PRN PRN Reason: PROTOCOL Stop: 02/13/18 11:59 Quetiapine Fumarate (Seroquel) 37.5 mg PO BID [facility]E PRN Reason: Protocol Stop: 02/13/18 07:03 Last Admin: 12/15/17 11:37 Dose: 37.5 mg Senna (Senna) 17.2 mg PO HS [facility] Stop: 02/08/18 20:59 Last Admin: 12/14/17 20:39 Dose: 17.2 mg Vitamin B Complex/Vit C/Folic Acid (Vitamin B Complex W/Vitamin C) 1 tab PO DAILY [facility] Stop: 02/08/18 08:59 Last Admin: 12/15/17 09:35 Dose: 1 tab Zolpidem Tartrate (Ambien) 5 mg PO HS PRN PRN Reason: Insomnia Stop: 02/07/18 23:32 Last Admin: 12/13/17 00:09 Dose: 5 mg General: Alert, No acute distress HEENT: Atraumatic Neck: Supple, +2 carotid pulse wo bruit Cardiovascular: Regular rate, Normal S1, Normal S2 Lungs: Clear to auscultation Abdomen: Bowel sounds, Soft Extremities: Other (No edema) Neurological: Sensation intact Skin: no Rash Psych/Mental Status: Other (Confused, not oriented, agitated) - Procedures Procedures: Procedures Procedure Code Date OTHER GROUP THERAPY 94.44 10/14/10 RECREATIONAL THERAPY 93.81 10/14/10 Assessment/Plan - Assessment Assessment: CKD Acute decomp of Psychosis CAD Hypothyroid - Plan Plan: Current Medications Acetaminophen (Tylenol) 650 mg PO Q4HR PRN PRN Reason: Mild Pain / Temp above 100 Stop: 02/07/18 23:32 Cyanocobalamin (Vitamin B12) 100 mcg PO DAILY [facility] Stop: 02/08/18 08:59 Last Admin: 12/12/17 08:39 Dose: 100 mcg Docusate Sodium (Colace) 100 mg PO DAILY [facility] Stop: 02/08/18 08:59 Last Admin: 12/12/17 08:40 Dose: 100 mg Levothyroxine Sodium (Synthroid) 0.05 mg PO QDAC [facility] Stop: 02/08/18 07:29 Last Admin: 12/12/17 06:32 Dose: 0.05 mg Lorazepam (Ativan) 0.5 mg PO Q4HR PRN; Protocol PRN Reason: Anxiety Stop: 01/08/18 23:32 Magnesium Hydroxide (Milk Of Magnesia) 30 ml PO DAILY PRN PRN Reason: Constipation Stop: 02/07/18 23:45 Megestrol Acetate (Megace) 400 mg PO DAILY [facility] Stop: 02/08/18 08:59 Last Admin: 12/12/17 08:40 Dose: 400 mg Quetiapine Fumarate (Seroquel) 12.5 mg PO BID AYDEE PRN Reason: Protocol Stop: 02/08/18 16:59 Last Admin: 12/12/17 08:40 Dose: 12.5 mg Senna (Senna) 17.2 mg PO HS [facility] Stop: 02/08/18 20:59 Last Admin: 12/11/17 21:41 Dose: 17.2 mg Vitamin B Complex/Vit C/Folic Acid (Vitamin B Complex W/Vitamin C) 1 tab PO DAILY [facility] Stop: 02/08/18 08:59 Last Admin: 12/12/17 08:40 Dose: 1 tab Zolpidem Tartrate (Ambien) 5 mg PO HS PRN PRN Reason: Insomnia Stop: 02/07/18 23:32 Lab - Result Diagrams 12/09/17 20:17 12/09/17 20:17 kidney fnc stable @ 2.5 which is her baseline encourage po intake continue psych meds Nutritional Asmnt/Malnutr-PDOC - Dietary Evaluation Malnutrition Findings (Please click <Entered> for more info): Nutritional Asmnt/Malnutrition Start: 12/14/17 16: 58 Text: Status: Complete Freq: Document 12/14/17 16:58 FAIZAN (Rec: 12/14/17 17:05 [email or web address]) Nutritional Asmnt/Malnutrition Patient General Information Nutritional Screening Moderate Risk Diagnosis psychosis NOS Pertinent Medical Hx/Surgical Hx CAD, dementia, schizophrenia, weakness, chronic renal insuff Subjective Information Pt seen sleeping at time of visit. Per EMR, PO intake 75%. Current Diet Order/ Nutrition Support mech soft chopped, santosh, high protein nourishment TID Pertinent Medications vit B12, colace, synthroid, megace, seroquel, senna, vit B complex, with vit C Pertinent Labs 12/14BUN 43, Cr 2.5, glucose 94 , ca 10.7 Nutritional Hx/Data Height 1.6 m Height (Calculated Centimeters) 160.0 Current Weight (lbs) 45.359 kg Weight (Calculated Kilograms) 45.4 Weight (Calculated Grams) 08115.2 [place] Body Weight 115 Body Mass Index (BMI) 17.6 Weight Status Underweight GI Symptoms GI Symptoms None Last BM 12/13 x 2 Difficult in: None Skin Integrity/Comment: intact Nutritional Problem No current Nutrition Prob Problem N/A Intervention/Recommendation Comments 1. Continue with current diet as ordered. 2. Monitor PO intake, wt, labs and skin integrity 3. F/U as low risk in 7 days, 12/21 Expected Outcomes/Goals Expected Outcomes/Goals 1. PO intake to meet at least 75% of nutritional needs. 2. Wt stability, skin to remain intact, labs to approach WNL.
--- NOTE | 2017-12-16 01:39 | Progress Notes ---
DATE: SUBJECTIVE: Chart reviewed and the patient interviewed. Also discussed the patient's condition with the staff and reviewed records and labs. The patient is still suspicious and paranoid and she also still has difficulty with her mood. She also still seems to be actively responding to stimuli. The patient also is still easily agitated. Otherwise, the patient is compliant with taking her medications with no side effect of medications. ASSESSMENT: The patient is still psychotic. TREATMENT PLAN: Continue to monitor her behavior and her condition closely and will continue to follow up. [facility]# [id number]
[2017-12-16] MEDS: Levothyroxine 0.05 Mg Tab PO SCH (06:34)
[2017-12-16] MEDS: Vitamin B Complex w/Vitamin C Tab PO SCH (09:00)
[2017-12-16] MEDS: Lactobacillus Rhamnosus GG 15 Billion CFU CAP.SPRINK PO SCH (09:00)
--- NOTE | 2017-12-16 09:06 | General Progress Note ---
Subjective - Review of Systems Service Date: 12/16/17 Subjective: Incoherent Objective - Results Result Diagrams: 12/14/17 07:20 12/14/17 07:20 Recent Labs: Laboratory Last Values WBC 9.5 Th/cmm (4.8-10.8) 12/14/17 07:20 RBC 3.54 Mil/cmm (3.80-5.20) L 12/14/17 07:20 Hgb 11.2 gm/dL (12-16) L 12/14/17 07:20 Hct 33.9 % (41.0-60) L 12/14/17 07:20 MCV 96.0 fl (81-100) 12/14/17 07:20 MCH 31.6 pg (27.0-31.0) H 12/14/17 07:20 MCHC Differential 33.0 pg (28.0-36.0) 12/14/17 07:20 RDW 12.3 % (11.5-20.0) 12/14/17 07:20 Plt Count 191 Th/cmm (150-400) 12/14/17 07:20 MPV 9.5 fl 12/14/17 07:20 Neutrophils % 66.8 % (40.0-80.0) 12/14/17 07:20 Band Neutrophils % 1 % (0-10) 12/09/17 20:17 Lymphocytes % 25.1 % (20.0-50.0) 12/14/17 07:20 Monocytes % 5.6 % (2.0-10.0) 12/14/17 07:20 Eosinophils % 2.0 % (0.0-5.0) 12/14/17 07:20 Basophils % 0.5 % (0.0-2.0) 12/14/17 07:20 Neutrophils (Manual) 56 % (40-80) 12/09/17 20:17 Lymphocytes 35 % (20-50) 12/09/17 20:17 Monocytes 3 % (2-10) 12/09/17 20:17 Eosinophils 5 % (0-5) 12/09/17 20:17 Basophils 0 % (0-3) 12/09/17 20:17 Sodium 141 mEq/L (136-145) 12/14/17 07:20 Potassium 5.1 mEq/L (3.5-5.1) 12/14/17 07:20 Chloride 107 mEq/L (98-107) 12/14/17 07:20 Carbon Dioxide 29.2 mEq/L (21.0-31.0) 12/14/17 07:20 Anion Gap 9.9 (7.0-16.0) 12/14/17 07:20 BUN 43 mg/dL (7-25) H 12/14/17 07:20 Creatinine 2.5 mg/dL (0.6-1.2) H 12/14/17 07:20 Est GFR ( Amer) 24.5 ml/min (>90) 12/14/17 07:20 Est GFR (Non-Af Amer) 20.2 ml/min 12/14/17 07:20 BUN/Creatinine Ratio 17.2 12/14/17 07:20 Glucose 94 mg/dL (70-105) 12/14/17 07:20 Calcium 10.7 mg/dL (8.6-10.3) H 12/14/17 07:20 Total Bilirubin 0.4 mg/dL (0.3-1.0) 12/14/17 07:20 AST 12 U/L (13-39) L 12/14/17 07:20 ALT 7 U/L (7-52) 12/14/17 07:20 Alkaline Phosphatase 43 U/L (34-104) 12/14/17 07:20 Total Protein 6.4 gm/dL (6.0-8.3) 12/14/17 07:20 Albumin 3.5 gm/dL (3.7-5.3) L 12/14/17 07:20 Globulin 2.9 gm/dL 12/14/17 07:20 Albumin/Globulin Ratio 1.2 (1.0-1.8) 12/14/17 07:20 TSH 1.71 uIU/ml (0.34-5.60) 12/09/17 20:17 Urine Source RANDOM 12/09/17 20:30 Urine Color YELLOW 12/09/17 20:30 Urine Clarity SLIGHT CLOUDY (CLEAR) H 12/09/17 20:30 Urine pH 7.5 (4.6 - 8.0) 12/09/17 20:30 Ur Specific [place] 1.010 (1.005-1.030) 12/09/17 20:30 Urine Protein 100 mg/dL (NEGATIVE) H 12/09/17 20:30 Urine Glucose (UA) NEGATIVE mg/dL (NEGATIVE) 12/09/17 20:30 Urine Ketones NEGATIVE mg/dL (NEGATIVE) 12/09/17 20:30 Urine Blood NEGATIVE (NEGATIVE) 12/09/17 20:30 Urine Nitrate NEGATIVE (NEGATIVE) 12/09/17 20:30 Urine Bilirubin NEGATIVE (NEGATIVE) 12/09/17 20:30 Urine Urobilinogen 0.2 E.U./dL (0.2 - 1.0) 12/09/17 20:30 Ur Leukocyte Esterase LARGE (NEGATIVE) H 12/09/17 20:30 Urine RBC 2-5 /hpf (0-5) 12/09/17 20:30 Urine WBC 10-25 /hpf (0-5) H 12/09/17 20:30 Ur Epithelial Cells OCCASIONAL /lpf (FEW) 12/09/17 20:30 Urine Bacteria FEW /hpf (NONE SEEN) 12/09/17 20:30 - Physical Exam Vitals and I&O: Vital Signs Temp 97.8 F 12/16/17 06:42 Pulse 62 12/16/17 06:42 Resp 19 12/16/17 06:42 BP 120/70 12/16/17 06:42 Pulse Ox 97 12/16/17 06:42 Intake & Output 12/15/17 12/16/17 12/16/17 18:59 06:59 18:59 Intake Total 1200 320 Balance 1200 320 Intake: Oral 1200 320 Other: # Voids 3 1 Stool Characteristics Soft Active Medications: Current Medications Acetaminophen (Tylenol) 650 mg PO Q4HR PRN PRN Reason: Mild Pain / Temp above 100 Stop: 02/07/18 23:32 Ceftriaxone Sodium (Rocephin) 1 gm IM Q24HR [facility] Stop: 12/18/17 08:59 Last Admin: 12/15/17 09:30 Dose: 1 gm Cyanocobalamin (Vitamin B12) 100 mcg PO DAILY [facility] Stop: 02/08/18 08:59 Last Admin: 12/15/17 11:34 Dose: Not Given Docusate Sodium (Colace) 100 mg PO DAILY [facility] Stop: 02/08/18 08:59 Last Admin: 12/15/17 09:35 Dose: 100 mg Lactobacillus Rhamnosus (Culturelle 15b) 1 each PO DAILY [facility] Stop: 02/14/18 08:59 Levothyroxine Sodium (Synthroid) 0.05 mg PO QDAC [facility] Stop: 02/08/18 07:29 Last Admin: 12/16/17 06:34 Dose: 0.05 mg Lorazepam (Ativan) 0.5 mg PO Q4HR PRN; Protocol PRN Reason: Anxiety Stop: 01/08/18 23:32 Last Admin: 12/13/17 00:08 Dose: 0.5 mg Magnesium Hydroxide (Milk Of Magnesia) 30 ml PO DAILY PRN PRN Reason: Constipation Stop: 02/07/18 23:45 Megestrol Acetate (Megace) 400 mg PO DAILY [facility] Stop: 02/08/18 08:59 Last Admin: 12/15/17 09:35 Dose: 400 mg Miscellaneous (Probiotic Screen) 1 ea MC PRN PRN PRN Reason: PROTOCOL Stop: 02/13/18 11:59 Quetiapine Fumarate (Seroquel) 37.5 mg PO BID [facility]E PRN Reason: Protocol Stop: 02/13/18 07:03 Last Admin: 12/15/17 16:23 Dose: 37.5 mg Senna (Senna) 17.2 mg PO HS [facility] Stop: 02/08/18 20:59 Last Admin: 12/15/17 20:40 Dose: 17.2 mg Vitamin B Complex/Vit C/Folic Acid (Vitamin B Complex W/Vitamin C) 1 tab PO DAILY [facility] Stop: 02/08/18 08:59 Last Admin: 12/15/17 09:35 Dose: 1 tab Zolpidem Tartrate (Ambien) 5 mg PO HS PRN PRN Reason: Insomnia Stop: 02/07/18 23:32 Last Admin: 12/13/17 00:09 Dose: 5 mg General: Alert, No acute distress HEENT: Atraumatic Neck: Supple, +2 carotid pulse wo bruit Cardiovascular: Regular rate, Normal S1, Normal S2 Lungs: Clear to auscultation Abdomen: Bowel sounds, Soft Extremities: Other (No edema) Neurological: Sensation intact Skin: no Rash Psych/Mental Status: Other (Confused, not oriented, agitated) - Procedures Procedures: Procedures Procedure Code Date OTHER GROUP THERAPY 94.44 10/14/10 RECREATIONAL THERAPY 93.81 01/19/11 Assessment/Plan - Assessment Assessment: Patient is awake, alert, calm in no acute distress. Dx: increased in agitation, UTI, Hypothyroidism, CKD, Polyarthritis - Plan Plan: Patient is under Psychiatric care. She is continue with SNF meds. Ceftriaxone is added. Creatinine still high. follow by nephro. Will continue to monitor. Nutritional Asmnt/Malnutr-PDOC - Dietary Evaluation Malnutrition Findings (Please click <Entered> for more info): Nutritional Asmnt/Malnutrition Start: 12/14/17 16: 58 Text: Status: Complete Freq: Document 12/14/17 16:58 FAIZANG (Rec: 12/14/17 17:05 [email or web address]) Nutritional Asmnt/Malnutrition Patient General Information Nutritional Screening Moderate Risk Diagnosis psychosis NOS Pertinent Medical Hx/Surgical Hx CAD, dementia, schizophrenia, weakness, chronic renal insuff Subjective Information Pt seen sleeping at time of visit. Per EMR, PO intake 75%. Current Diet Order/ Nutrition Support mech soft chopped, santosh, high protein nourishment TID Pertinent Medications vit B12, colace, synthroid, megace, seroquel, senna, vit B complex, with vit C Pertinent Labs 12/14BUN 43, Cr 2.5, glucose 94 , ca 10.7 Nutritional Hx/Data Height 1.6 m Height (Calculated Centimeters) 160.0 Current Weight (lbs) 45.359 kg Weight (Calculated Kilograms) 45.4 Weight (Calculated Grams) 31136.2 [place] Body Weight 115 Body Mass Index (BMI) 17.6 Weight Status Underweight GI Symptoms GI Symptoms None Last BM 12/13 x 2 Difficult in: None Skin Integrity/Comment: intact Nutritional Problem No current Nutrition Prob Problem N/A Intervention/Recommendation Comments 1. Continue with current diet as ordered. 2. Monitor PO intake, wt, labs and skin integrity 3. F/U as low risk in 7 days, 12/21 Expected Outcomes/Goals Expected Outcomes/Goals 1. PO intake to meet at least 75% of nutritional needs. 2. Wt stability, skin to remain intact, labs to approach WNL.
--- NOTE | 2017-12-16 15:05 | General Progress Note ---
Subjective - Review of Systems Service Date: 12/16/17 Subjective: still agitated, paranoid Objective - Results Result Diagrams: 12/14/17 07:20 12/14/17 07:20 Recent Labs: Laboratory Last Values WBC 9.5 Th/cmm (4.8-10.8) 12/14/17 07:20 RBC 3.54 Mil/cmm (3.80-5.20) L 12/14/17 07:20 Hgb 11.2 gm/dL (12-16) L 12/14/17 07:20 Hct 33.9 % (41.0-60) L 12/14/17 07:20 MCV 96.0 fl (81-100) 12/14/17 07:20 MCH 31.6 pg (27.0-31.0) H 12/14/17 07:20 MCHC Differential 33.0 pg (28.0-36.0) 12/14/17 07:20 RDW 12.3 % (11.5-20.0) 12/14/17 07:20 Plt Count 191 Th/cmm (150-400) 12/14/17 07:20 MPV 9.5 fl 12/14/17 07:20 Neutrophils % 66.8 % (40.0-80.0) 12/14/17 07:20 Band Neutrophils % 1 % (0-10) 12/09/17 20:17 Lymphocytes % 25.1 % (20.0-50.0) 12/14/17 07:20 Monocytes % 5.6 % (2.0-10.0) 12/14/17 07:20 Eosinophils % 2.0 % (0.0-5.0) 12/14/17 07:20 Basophils % 0.5 % (0.0-2.0) 12/14/17 07:20 Neutrophils (Manual) 56 % (40-80) 12/09/17 20:17 Lymphocytes 35 % (20-50) 12/09/17 20:17 Monocytes 3 % (2-10) 12/09/17 20:17 Eosinophils 5 % (0-5) 12/09/17 20:17 Basophils 0 % (0-3) 12/09/17 20:17 Sodium 141 mEq/L (136-145) 12/14/17 07:20 Potassium 5.1 mEq/L (3.5-5.1) 12/14/17 07:20 Chloride 107 mEq/L (98-107) 12/14/17 07:20 Carbon Dioxide 29.2 mEq/L (21.0-31.0) 12/14/17 07:20 Anion Gap 9.9 (7.0-16.0) 12/14/17 07:20 BUN 43 mg/dL (7-25) H 12/14/17 07:20 Creatinine 2.5 mg/dL (0.6-1.2) H 12/14/17 07:20 Est GFR ( Amer) 24.5 ml/min (>90) 12/14/17 07:20 Est GFR (Non-Af Amer) 20.2 ml/min 12/14/17 07:20 BUN/Creatinine Ratio 17.2 12/14/17 07:20 Glucose 94 mg/dL (70-105) 12/14/17 07:20 Calcium 10.7 mg/dL (8.6-10.3) H 12/14/17 07:20 Total Bilirubin 0.4 mg/dL (0.3-1.0) 12/14/17 07:20 AST 12 U/L (13-39) L 12/14/17 07:20 ALT 7 U/L (7-52) 12/14/17 07:20 Alkaline Phosphatase 43 U/L (34-104) 12/14/17 07:20 Total Protein 6.4 gm/dL (6.0-8.3) 12/14/17 07:20 Albumin 3.5 gm/dL (3.7-5.3) L 12/14/17 07:20 Globulin 2.9 gm/dL 12/14/17 07:20 Albumin/Globulin Ratio 1.2 (1.0-1.8) 12/14/17 07:20 TSH 1.71 uIU/ml (0.34-5.60) 12/09/17 20:17 Urine Source RANDOM 12/09/17 20:30 Urine Color YELLOW 12/09/17 20:30 Urine Clarity SLIGHT CLOUDY (CLEAR) H 12/09/17 20:30 Urine pH 7.5 (4.6 - 8.0) 12/09/17 20:30 Ur Specific [place] 1.010 (1.005-1.030) 12/09/17 20:30 Urine Protein 100 mg/dL (NEGATIVE) H 12/09/17 20:30 Urine Glucose (UA) NEGATIVE mg/dL (NEGATIVE) 12/09/17 20:30 Urine Ketones NEGATIVE mg/dL (NEGATIVE) 12/09/17 20:30 Urine Blood NEGATIVE (NEGATIVE) 12/09/17 20:30 Urine Nitrate NEGATIVE (NEGATIVE) 12/09/17 20:30 Urine Bilirubin NEGATIVE (NEGATIVE) 12/09/17 20:30 Urine Urobilinogen 0.2 E.U./dL (0.2 - 1.0) 12/09/17 20:30 Ur Leukocyte Esterase LARGE (NEGATIVE) H 12/09/17 20:30 Urine RBC 2-5 /hpf (0-5) 12/09/17 20:30 Urine WBC 10-25 /hpf (0-5) H 12/09/17 20:30 Ur Epithelial Cells OCCASIONAL /lpf (FEW) 12/09/17 20:30 Urine Bacteria FEW /hpf (NONE SEEN) 12/09/17 20:30 - Physical Exam Vitals and I&O: Vital Signs Temp 98.6 F 12/16/17 14:36 Pulse 86 12/16/17 14:36 Resp 20 12/16/17 14:36 BP 116/61 12/16/17 14:36 Pulse Ox 96 12/16/17 14:36 Intake & Output 12/15/17 12/16/17 12/16/17 18:59 06:59 18:59 Intake Total 1200 320 Balance 1200 320 Intake: Oral 1200 320 Other: # Voids 3 1 Stool Characteristics Soft Active Medications: Current Medications Acetaminophen (Tylenol) 650 mg PO Q4HR PRN PRN Reason: Mild Pain / Temp above 100 Stop: 02/07/18 23:32 Ceftriaxone Sodium (Rocephin) 1 gm IM Q24HR [facility] Stop: 12/18/17 08:59 Last Admin: 12/16/17 11:48 Dose: 1 gm Cyanocobalamin (Vitamin B12) 100 mcg PO DAILY [facility] Stop: 02/08/18 08:59 Last Admin: 12/16/17 09:00 Dose: 100 mcg Docusate Sodium (Colace) 100 mg PO DAILY [facility] Stop: 02/08/18 08:59 Last Admin: 12/16/17 09:01 Dose: 100 mg Lactobacillus Rhamnosus (Culturelle 15b) 1 each PO DAILY [facility] Stop: 02/14/18 08:59 Last Admin: 12/16/17 09:00 Dose: 1 each Levothyroxine Sodium (Synthroid) 0.05 mg PO QDAC [facility] Stop: 02/08/18 07:29 Last Admin: 12/16/17 06:34 Dose: 0.05 mg Lorazepam (Ativan) 0.5 mg PO Q4HR PRN; Protocol PRN Reason: Anxiety Stop: 01/08/18 23:32 Last Admin: 12/13/17 00:08 Dose: 0.5 mg Magnesium Hydroxide (Milk Of Magnesia) 30 ml PO DAILY PRN PRN Reason: Constipation Stop: 02/07/18 23:45 Megestrol Acetate (Megace) 400 mg PO DAILY [facility] Stop: 02/08/18 08:59 Last Admin: 12/16/17 09:00 Dose: 400 mg Miscellaneous (Probiotic Screen) 1 ea MC PRN PRN PRN Reason: PROTOCOL Stop: 02/13/18 11:59 Quetiapine Fumarate (Seroquel) 37.5 mg PO BID [facility] PRN Reason: Protocol Stop: 02/13/18 07:03 Last Admin: 12/16/17 09:00 Dose: 37.5 mg Senna (Senna) 17.2 mg PO HS [facility] Stop: 02/08/18 20:59 Last Admin: 12/15/17 20:40 Dose: 17.2 mg Vitamin B Complex/Vit C/Folic Acid (Vitamin B Complex W/Vitamin C) 1 tab PO DAILY [facility] Stop: 02/08/18 08:59 Last Admin: 12/16/17 09:00 Dose: 1 tab Zolpidem Tartrate (Ambien) 5 mg PO HS PRN PRN Reason: Insomnia Stop: 02/07/18 23:32 Last Admin: 12/13/17 00:09 Dose: 5 mg General: Alert, No acute distress HEENT: Atraumatic Neck: Supple, +2 carotid pulse wo bruit Cardiovascular: Regular rate, Normal S1, Normal S2 Lungs: Clear to auscultation Abdomen: Bowel sounds, Soft Extremities: Other (No edema) Neurological: Sensation intact Skin: no Rash Psych/Mental Status: Other (Confused, not oriented, agitated) - Procedures Procedures: Procedures Procedure Code Date OTHER GROUP THERAPY 94.44 10/14/10 RECREATIONAL THERAPY 93.81 10/14/10 Assessment/Plan - Assessment Assessment: CKD Acute decomp of Psychosis CAD Hypothyroid - Plan Plan: Current Medications Acetaminophen (Tylenol) 650 mg PO Q4HR PRN PRN Reason: Mild Pain / Temp above 100 Stop: 02/07/18 23:32 Cyanocobalamin (Vitamin B12) 100 mcg PO DAILY [facility] Stop: 02/08/18 08:59 Last Admin: 12/12/17 08:39 Dose: 100 mcg Docusate Sodium (Colace) 100 mg PO DAILY [facility] Stop: 02/08/18 08:59 Last Admin: 12/12/17 08:40 Dose: 100 mg Levothyroxine Sodium (Synthroid) 0.05 mg PO QDAC [facility] Stop: 02/08/18 07:29 Last Admin: 12/12/17 06:32 Dose: 0.05 mg Lorazepam (Ativan) 0.5 mg PO Q4HR PRN; Protocol PRN Reason: Anxiety Stop: 01/08/18 23:32 Magnesium Hydroxide (Milk Of Magnesia) 30 ml PO DAILY PRN PRN Reason: Constipation Stop: 02/07/18 23:45 Megestrol Acetate (Megace) 400 mg PO DAILY [facility] Stop: 02/08/18 08:59 Last Admin: 12/12/17 08:40 Dose: 400 mg Quetiapine Fumarate (Seroquel) 12.5 mg PO BID [facility] PRN Reason: Protocol Stop: 02/08/18 16:59 Last Admin: 12/12/17 08:40 Dose: 12.5 mg Senna (Senna) 17.2 mg PO HS [facility] Stop: 02/08/18 20:59 Last Admin: 12/11/17 21:41 Dose: 17.2 mg Vitamin B Complex/Vit C/Folic Acid (Vitamin B Complex W/Vitamin C) 1 tab PO DAILY [facility] Stop: 02/08/18 08:59 Last Admin: 12/12/17 08:40 Dose: 1 tab Zolpidem Tartrate (Ambien) 5 mg PO HS PRN PRN Reason: Insomnia Stop: 02/07/18 23:32 Lab - Result Diagrams 12/14/17 07:20 12/14/17 07:20 kidney fnc stable @ 2.5 which is her baseline encourage po intake continue psych meds Nutritional Asmnt/Malnutr-PDOC - Dietary Evaluation Malnutrition Findings (Please click <Entered> for more info): Nutritional Asmnt/Malnutrition Start: 12/14/17 16: 58 Text: Status: Complete Freq: Document 12/14/17 16:58 ISMA (Rec: 12/14/17 17:05 [email or web address]) Nutritional Asmnt/Malnutrition Patient General Information Nutritional Screening Moderate Risk Diagnosis psychosis NOS Pertinent Medical Hx/Surgical Hx CAD, dementia, schizophrenia, weakness, chronic renal insuff Subjective Information Pt seen sleeping at time of visit. Per EMR, PO intake 75%. Current Diet Order/ Nutrition Support mech soft chopped, santosh, high protein nourishment TID Pertinent Medications vit B12, colace, synthroid, megace, seroquel, senna, vit B complex, with vit C Pertinent Labs 12/14BUN 43, Cr 2.5, glucose 94 , ca 10.7 Nutritional Hx/Data Height 1.6 m Height (Calculated Centimeters) 160.0 Current Weight (lbs) 45.359 kg Weight (Calculated Kilograms) 45.4 Weight (Calculated Grams) 14181.2 [facility] Body Weight 115 Body Mass Index (BMI) 17.6 Weight Status Underweight GI Symptoms GI Symptoms None Last BM 12/13 x 2 Difficult in: None Skin Integrity/Comment: intact Nutritional Problem No current Nutrition Prob Problem N/A Intervention/Recommendation Comments 1. Continue with current diet as ordered. 2. Monitor PO intake, wt, labs and skin integrity 3. F/U as low risk in 7 days, 12/21 Expected Outcomes/Goals Expected Outcomes/Goals 1. PO intake to meet at least 75% of nutritional needs. 2. Wt stability, skin to remain intact, labs to approach WNL.
--- NOTE | 2017-12-16 21:28 | Progress Notes ---
DATE: 12/16/2017 SUBJECTIVE: Chart reviewed and the patient interviewed. Also discussed the patient's condition with the staff and reviewed records and labs. The patient is still suspicious and paranoid. We will continue covering her face and her body with a blanket, but when she uncover her face, she kept staring in a confused and paranoid state. The patient also is still restless and is still having episodes of anger and irritability. Otherwise, the patient is compliant with taking her medications with no side effect of medications. ASSESSMENT: The patient is still psychotic. TREATMENT PLAN: Continue to monitor her behavior and her condition closely. Also, continue adjusting psychotropic medications and follow up closely. JOB# [id number]
[2017-12-17] MEDS: Levothyroxine 0.05 Mg Tab PO SCH (06:32)
--- NOTE | 2017-12-17 08:57 | General Progress Note ---
Subjective - Review of Systems Service Date: 12/17/17 Subjective: Incoherent. Objective - Results Result Diagrams: 12/14/17 07:20 12/14/17 07:20 Recent Labs: Laboratory Last Values WBC 9.5 Th/cmm (4.8-10.8) 12/14/17 07:20 RBC 3.54 Mil/cmm (3.80-5.20) L 12/14/17 07:20 Hgb 11.2 gm/dL (12-16) L 12/14/17 07:20 Hct 33.9 % (41.0-60) L 12/14/17 07:20 MCV 96.0 fl (81-100) 12/14/17 07:20 MCH 31.6 pg (27.0-31.0) H 12/14/17 07:20 MCHC Differential 33.0 pg (28.0-36.0) 12/14/17 07:20 RDW 12.3 % (11.5-20.0) 12/14/17 07:20 Plt Count 191 Th/cmm (150-400) 12/14/17 07:20 MPV 9.5 fl 12/14/17 07:20 Neutrophils % 66.8 % (40.0-80.0) 12/14/17 07:20 Band Neutrophils % 1 % (0-10) 12/09/17 20:17 Lymphocytes % 25.1 % (20.0-50.0) 12/14/17 07:20 Monocytes % 5.6 % (2.0-10.0) 12/14/17 07:20 Eosinophils % 2.0 % (0.0-5.0) 12/14/17 07:20 Basophils % 0.5 % (0.0-2.0) 12/14/17 07:20 Neutrophils (Manual) 56 % (40-80) 12/09/17 20:17 Lymphocytes 35 % (20-50) 12/09/17 20:17 Monocytes 3 % (2-10) 12/09/17 20:17 Eosinophils 5 % (0-5) 12/09/17 20:17 Basophils 0 % (0-3) 12/09/17 20:17 Sodium 141 mEq/L (136-145) 12/14/17 07:20 Potassium 5.1 mEq/L (3.5-5.1) 12/14/17 07:20 Chloride 107 mEq/L (98-107) 12/14/17 07:20 Carbon Dioxide 29.2 mEq/L (21.0-31.0) 12/14/17 07:20 Anion Gap 9.9 (7.0-16.0) 12/14/17 07:20 BUN 43 mg/dL (7-25) H 12/14/17 07:20 Creatinine 2.5 mg/dL (0.6-1.2) H 12/14/17 07:20 Est GFR ( Amer) 24.5 ml/min (>90) 12/14/17 07:20 Est GFR (Non-Af Amer) 20.2 ml/min 12/14/17 07:20 BUN/Creatinine Ratio 17.2 12/14/17 07:20 Glucose 94 mg/dL (70-105) 12/14/17 07:20 Calcium 10.7 mg/dL (8.6-10.3) H 12/14/17 07:20 Total Bilirubin 0.4 mg/dL (0.3-1.0) 12/14/17 07:20 AST 12 U/L (13-39) L 12/14/17 07:20 ALT 7 U/L (7-52) 12/14/17 07:20 Alkaline Phosphatase 43 U/L (34-104) 12/14/17 07:20 Total Protein 6.4 gm/dL (6.0-8.3) 12/14/17 07:20 Albumin 3.5 gm/dL (3.7-5.3) L 12/14/17 07:20 Globulin 2.9 gm/dL 12/14/17 07:20 Albumin/Globulin Ratio 1.2 (1.0-1.8) 12/14/17 07:20 TSH 1.71 uIU/ml (0.34-5.60) 12/09/17 20:17 Urine Source RANDOM 12/09/17 20:30 Urine Color YELLOW 12/09/17 20:30 Urine Clarity SLIGHT CLOUDY (CLEAR) H 12/09/17 20:30 Urine pH 7.5 (4.6 - 8.0) 12/09/17 20:30 Ur Specific [place] 1.010 (1.005-1.030) 12/09/17 20:30 Urine Protein 100 mg/dL (NEGATIVE) H 12/09/17 20:30 Urine Glucose (UA) NEGATIVE mg/dL (NEGATIVE) 12/09/17 20:30 Urine Ketones NEGATIVE mg/dL (NEGATIVE) 12/09/17 20:30 Urine Blood NEGATIVE (NEGATIVE) 12/09/17 20:30 Urine Nitrate NEGATIVE (NEGATIVE) 12/09/17 20:30 Urine Bilirubin NEGATIVE (NEGATIVE) 12/09/17 20:30 Urine Urobilinogen 0.2 E.U./dL (0.2 - 1.0) 12/09/17 20:30 Ur Leukocyte Esterase LARGE (NEGATIVE) H 12/09/17 20:30 Urine RBC 2-5 /hpf (0-5) 12/09/17 20:30 Urine WBC 10-25 /hpf (0-5) H 12/09/17 20:30 Ur Epithelial Cells OCCASIONAL /lpf (FEW) 12/09/17 20:30 Urine Bacteria FEW /hpf (NONE SEEN) 12/09/17 20:30 - Physical Exam Vitals and I&O: Vital Signs Temp 97 F 12/17/17 06:51 Pulse 67 12/17/17 06:51 Resp 19 12/17/17 06:51 BP 121/62 12/17/17 06:51 Pulse Ox 97 12/17/17 06:51 Intake & Output 12/16/17 12/17/17 12/17/17 18:59 06:59 18:59 Intake Total 900 360 Balance 900 360 Intake: Oral 900 360 Other: # Voids 4 2 # Bowel Movements 1 Active Medications: Current Medications Acetaminophen (Tylenol) 650 mg PO Q4HR PRN PRN Reason: Mild Pain / Temp above 100 Stop: 02/07/18 23:32 Ceftriaxone Sodium (Rocephin) 1 gm IM Q24HR [facility] Stop: 12/18/17 08:59 Last Admin: 12/16/17 11:48 Dose: 1 gm Cyanocobalamin (Vitamin B12) 100 mcg PO DAILY [facility] Stop: 02/08/18 08:59 Last Admin: 12/16/17 09:00 Dose: 100 mcg Docusate Sodium (Colace) 100 mg PO DAILY [facility] Stop: 02/08/18 08:59 Last Admin: 12/16/17 09:01 Dose: 100 mg Lactobacillus Rhamnosus (Culturelle 15b) 1 each PO DAILY [facility] Stop: 02/14/18 08:59 Last Admin: 12/16/17 09:00 Dose: 1 each Levothyroxine Sodium (Synthroid) 0.05 mg PO QDAC [facility] Stop: 02/08/18 07:29 Last Admin: 12/17/17 06:32 Dose: 0.05 mg Lorazepam (Ativan) 0.5 mg PO Q4HR PRN; Protocol PRN Reason: Anxiety Stop: 01/08/18 23:32 Last Admin: 12/13/17 00:08 Dose: 0.5 mg Magnesium Hydroxide (Milk Of Magnesia) 30 ml PO DAILY PRN PRN Reason: Constipation Stop: 02/07/18 23:45 Megestrol Acetate (Megace) 400 mg PO DAILY [facility] Stop: 02/08/18 08:59 Last Admin: 12/16/17 09:00 Dose: 400 mg Miscellaneous (Probiotic Screen) 1 ea MC PRN PRN PRN Reason: PROTOCOL Stop: 02/13/18 11:59 Quetiapine Fumarate (Seroquel) 37.5 mg PO BID [facility] PRN Reason: Protocol Stop: 02/13/18 07:03 Last Admin: 12/16/17 16:35 Dose: 37.5 mg Senna (Senna) 17.2 mg PO HS [facility] Stop: 02/08/18 20:59 Last Admin: 12/16/17 20:21 Dose: 17.2 mg Vitamin B Complex/Vit C/Folic Acid (Vitamin B Complex W/Vitamin C) 1 tab PO DAILY [facility] Stop: 02/08/18 08:59 Last Admin: 12/16/17 09:00 Dose: 1 tab Zolpidem Tartrate (Ambien) 5 mg PO HS PRN PRN Reason: Insomnia Stop: 02/07/18 23:32 Last Admin: 12/13/17 00:09 Dose: 5 mg General: Alert, No acute distress HEENT: Atraumatic Neck: Supple, +2 carotid pulse wo bruit Cardiovascular: Regular rate, Normal S1, Normal S2 Lungs: Clear to auscultation Abdomen: Bowel sounds, Soft Extremities: Other (No edema) Neurological: Sensation intact Skin: no Rash Psych/Mental Status: Other (Confused, not oriented, agitated) - Procedures Procedures: Procedures Procedure Code Date OTHER GROUP THERAPY 94.44 10/14/10 RECREATIONAL THERAPY 93.81 10/14/10 Assessment/Plan - Assessment Assessment: Patient is awake, alert, calm in no acute distress. Dx: increased in agitation, UTI, Hypothyroidism, CKD, Polyarthritis - Plan Plan: Patient is under Psychiatric care. She is continue with SNF meds. Ceftriaxone is added. Creatinine still high. follow by nephro. Will continue to monitor. Nutritional Asmnt/Malnutr-PDOC - Dietary Evaluation Malnutrition Findings (Please click <Entered> for more info): Nutritional Asmnt/Malnutrition Start: 12/14/17 16: 58 Text: Status: Complete Freq: Document 12/14/17 16:58 ISMA (Rec: 12/14/17 17:05 [email or web address]) Nutritional Asmnt/Malnutrition Patient General Information Nutritional Screening Moderate Risk Diagnosis psychosis NOS Pertinent Medical Hx/Surgical Hx CAD, dementia, schizophrenia, weakness, chronic renal insuff Subjective Information Pt seen sleeping at time of visit. Per EMR, PO intake 75%. Current Diet Order/ Nutrition Support mech soft chopped, santosh, high protein nourishment TID Pertinent Medications vit B12, colace, synthroid, megace, seroquel, senna, vit B complex, with vit C Pertinent Labs 12/14BUN 43, Cr 2.5, glucose 94 , ca 10.7 Nutritional Hx/Data Height 1.6 m Height (Calculated Centimeters) 160.0 Current Weight (lbs) 45.359 kg Weight (Calculated Kilograms) 45.4 Weight (Calculated Grams) 62885.2 [place] Body Weight 115 Body Mass Index (BMI) 17.6 Weight Status Underweight GI Symptoms GI Symptoms None Last BM 12/13 x 2 Difficult in: None Skin Integrity/Comment: intact Nutritional Problem No current Nutrition Prob Problem N/A Intervention/Recommendation Comments 1. Continue with current diet as ordered. 2. Monitor PO intake, wt, labs and skin integrity 3. F/U as low risk in 7 days, 12/21 Expected Outcomes/Goals Expected Outcomes/Goals 1. PO intake to meet at least 75% of nutritional needs. 2. Wt stability, skin to remain intact, labs to approach WNL.
[2017-12-17] MEDS: Lactobacillus Rhamnosus GG 15 Billion CFU CAP.SPRINK PO SCH (09:13)
[2017-12-17] MEDS: Vitamin B Complex w/Vitamin C Tab PO SCH (09:13)
--- NOTE | 2017-12-17 16:16 | General Progress Note ---
Subjective - Review of Systems Service Date: 12/17/17 Subjective: still agitated, paranoid Objective - Results Result Diagrams: 12/14/17 07:20 12/14/17 07:20 Recent Labs: Laboratory Last Values WBC 9.5 Th/cmm (4.8-10.8) 12/14/17 07:20 RBC 3.54 Mil/cmm (3.80-5.20) L 12/14/17 07:20 Hgb 11.2 gm/dL (12-16) L 12/14/17 07:20 Hct 33.9 % (41.0-60) L 12/14/17 07:20 MCV 96.0 fl (81-100) 12/14/17 07:20 MCH 31.6 pg (27.0-31.0) H 12/14/17 07:20 MCHC Differential 33.0 pg (28.0-36.0) 12/14/17 07:20 RDW 12.3 % (11.5-20.0) 12/14/17 07:20 Plt Count 191 Th/cmm (150-400) 12/14/17 07:20 MPV 9.5 fl 12/14/17 07:20 Neutrophils % 66.8 % (40.0-80.0) 12/14/17 07:20 Band Neutrophils % 1 % (0-10) 12/09/17 20:17 Lymphocytes % 25.1 % (20.0-50.0) 12/14/17 07:20 Monocytes % 5.6 % (2.0-10.0) 12/14/17 07:20 Eosinophils % 2.0 % (0.0-5.0) 12/14/17 07:20 Basophils % 0.5 % (0.0-2.0) 12/14/17 07:20 Neutrophils (Manual) 56 % (40-80) 12/09/17 20:17 Lymphocytes 35 % (20-50) 12/09/17 20:17 Monocytes 3 % (2-10) 12/09/17 20:17 Eosinophils 5 % (0-5) 12/09/17 20:17 Basophils 0 % (0-3) 12/09/17 20:17 Sodium 141 mEq/L (136-145) 12/14/17 07:20 Potassium 5.1 mEq/L (3.5-5.1) 12/14/17 07:20 Chloride 107 mEq/L (98-107) 12/14/17 07:20 Carbon Dioxide 29.2 mEq/L (21.0-31.0) 12/14/17 07:20 Anion Gap 9.9 (7.0-16.0) 12/14/17 07:20 BUN 43 mg/dL (7-25) H 12/14/17 07:20 Creatinine 2.5 mg/dL (0.6-1.2) H 12/14/17 07:20 Est GFR ( Amer) 24.5 ml/min (>90) 12/14/17 07:20 Est GFR (Non-Af Amer) 20.2 ml/min 12/14/17 07:20 BUN/Creatinine Ratio 17.2 12/14/17 07:20 Glucose 94 mg/dL (70-105) 12/14/17 07:20 Calcium 10.7 mg/dL (8.6-10.3) H 12/14/17 07:20 Total Bilirubin 0.4 mg/dL (0.3-1.0) 12/14/17 07:20 AST 12 U/L (13-39) L 12/14/17 07:20 ALT 7 U/L (7-52) 12/14/17 07:20 Alkaline Phosphatase 43 U/L (34-104) 12/14/17 07:20 Total Protein 6.4 gm/dL (6.0-8.3) 12/14/17 07:20 Albumin 3.5 gm/dL (3.7-5.3) L 12/14/17 07:20 Globulin 2.9 gm/dL 12/14/17 07:20 Albumin/Globulin Ratio 1.2 (1.0-1.8) 12/14/17 07:20 TSH 1.71 uIU/ml (0.34-5.60) 12/09/17 20:17 Urine Source RANDOM 12/09/17 20:30 Urine Color YELLOW 12/09/17 20:30 Urine Clarity SLIGHT CLOUDY (CLEAR) H 12/09/17 20:30 Urine pH 7.5 (4.6 - 8.0) 12/09/17 20:30 Ur Specific [place] 1.010 (1.005-1.030) 12/09/17 20:30 Urine Protein 100 mg/dL (NEGATIVE) H 12/09/17 20:30 Urine Glucose (UA) NEGATIVE mg/dL (NEGATIVE) 12/09/17 20:30 Urine Ketones NEGATIVE mg/dL (NEGATIVE) 12/09/17 20:30 Urine Blood NEGATIVE (NEGATIVE) 12/09/17 20:30 Urine Nitrate NEGATIVE (NEGATIVE) 12/09/17 20:30 Urine Bilirubin NEGATIVE (NEGATIVE) 12/09/17 20:30 Urine Urobilinogen 0.2 E.U./dL (0.2 - 1.0) 12/09/17 20:30 Ur Leukocyte Esterase LARGE (NEGATIVE) H 12/09/17 20:30 Urine RBC 2-5 /hpf (0-5) 12/09/17 20:30 Urine WBC 10-25 /hpf (0-5) H 12/09/17 20:30 Ur Epithelial Cells OCCASIONAL /lpf (FEW) 12/09/17 20:30 Urine Bacteria FEW /hpf (NONE SEEN) 12/09/17 20:30 - Physical Exam Vitals and I&O: Vital Signs Temp 97.4 F 12/17/17 14:00 Pulse 85 12/17/17 14:00 Resp 18 12/17/17 14:00 BP 150/72 12/17/17 14:00 Pulse Ox 98 12/17/17 14:00 Intake & Output 12/16/17 12/17/17 12/17/17 18:59 06:59 18:59 Intake Total 900 360 Balance 900 360 Intake: Oral 900 360 Other: # Voids 4 2 # Bowel Movements 1 Active Medications: Current Medications Acetaminophen (Tylenol) 650 mg PO Q4HR PRN PRN Reason: Mild Pain / Temp above 100 Stop: 02/07/18 23:32 Ceftriaxone Sodium (Rocephin) 1 gm IM Q24HR [facility] Stop: 12/18/17 08:59 Last Admin: 12/17/17 12:33 Dose: 1 gm Cyanocobalamin (Vitamin B12) 100 mcg PO DAILY [facility] Stop: 02/08/18 08:59 Last Admin: 12/17/17 09:16 Dose: 100 mcg Docusate Sodium (Colace) 100 mg PO DAILY [facility] Stop: 02/08/18 08:59 Last Admin: 12/17/17 09:13 Dose: 100 mg Lactobacillus Rhamnosus (Culturelle 15b) 1 each PO DAILY [facility] Stop: 02/14/18 08:59 Last Admin: 12/17/17 09:13 Dose: 1 each Levothyroxine Sodium (Synthroid) 0.05 mg PO QDAC [facility] Stop: 02/08/18 07:29 Last Admin: 12/17/17 06:32 Dose: 0.05 mg Lorazepam (Ativan) 0.5 mg PO Q4HR PRN; Protocol PRN Reason: Anxiety Stop: 01/08/18 23:32 Last Admin: 12/13/17 00:08 Dose: 0.5 mg Magnesium Hydroxide (Milk Of Magnesia) 30 ml PO DAILY PRN PRN Reason: Constipation Stop: 02/07/18 23:45 Megestrol Acetate (Megace) 400 mg PO DAILY [facility] Stop: 02/08/18 08:59 Last Admin: 12/17/17 09:13 Dose: 400 mg Miscellaneous (Probiotic Screen) 1 ea MC PRN PRN PRN Reason: PROTOCOL Stop: 02/13/18 11:59 Quetiapine Fumarate (Seroquel) 50 mg PO BID [facility] PRN Reason: Protocol Stop: 02/15/18 16:59 Senna (Senna) 17.2 mg PO HS [facility] Stop: 02/08/18 20:59 Last Admin: 12/16/17 20:21 Dose: 17.2 mg Vitamin B Complex/Vit C/Folic Acid (Vitamin B Complex W/Vitamin C) 1 tab PO DAILY [facility] Stop: 02/08/18 08:59 Last Admin: 12/17/17 09:13 Dose: 1 tab Zolpidem Tartrate (Ambien) 5 mg PO HS PRN PRN Reason: Insomnia Stop: 02/07/18 23:32 Last Admin: 12/13/17 00:09 Dose: 5 mg General: Alert, No acute distress HEENT: Atraumatic Neck: Supple, +2 carotid pulse wo bruit Cardiovascular: Regular rate, Normal S1, Normal S2 Lungs: Clear to auscultation Abdomen: Bowel sounds, Soft Extremities: Other (No edema) Neurological: Sensation intact Skin: no Rash Psych/Mental Status: Other (Confused, not oriented, agitated) - Procedures Procedures: Procedures Procedure Code Date OTHER GROUP THERAPY 94.44 10/14/10 RECREATIONAL THERAPY 93.81 10/14/10 Assessment/Plan - Assessment Assessment: CKD Acute decomp of Psychosis CAD Hypothyroid - Plan Plan: Current Medications Acetaminophen (Tylenol) 650 mg PO Q4HR PRN PRN Reason: Mild Pain / Temp above 100 Stop: 02/07/18 23:32 Cyanocobalamin (Vitamin B12) 100 mcg PO DAILY [facility] Stop: 02/08/18 08:59 Last Admin: 12/12/17 08:39 Dose: 100 mcg Docusate Sodium (Colace) 100 mg PO DAILY [facility] Stop: 02/08/18 08:59 Last Admin: 12/12/17 08:40 Dose: 100 mg Levothyroxine Sodium (Synthroid) 0.05 mg PO QDAC [facility] Stop: 02/08/18 07:29 Last Admin: 12/12/17 06:32 Dose: 0.05 mg Lorazepam (Ativan) 0.5 mg PO Q4HR PRN; Protocol PRN Reason: Anxiety Stop: 01/08/18 23:32 Magnesium Hydroxide (Milk Of Magnesia) 30 ml PO DAILY PRN PRN Reason: Constipation Stop: 02/07/18 23:45 Megestrol Acetate (Megace) 400 mg PO DAILY [facility] Stop: 02/08/18 08:59 Last Admin: 12/12/17 08:40 Dose: 400 mg Quetiapine Fumarate (Seroquel) 12.5 mg PO BID [facility] PRN Reason: Protocol Stop: 02/08/18 16:59 Last Admin: 12/12/17 08:40 Dose: 12.5 mg Senna (Senna) 17.2 mg PO HS [facility] Stop: 02/08/18 20:59 Last Admin: 12/11/17 21:41 Dose: 17.2 mg Vitamin B Complex/Vit C/Folic Acid (Vitamin B Complex W/Vitamin C) 1 tab PO DAILY [facility] Stop: 02/08/18 08:59 Last Admin: 12/12/17 08:40 Dose: 1 tab Zolpidem Tartrate (Ambien) 5 mg PO HS PRN PRN Reason: Insomnia Stop: 02/07/18 23:32 Lab - Result Diagrams 12/14/17 07:20 12/14/17 07:20 kidney fnc stable @ 2.5 which is her baseline encourage po intake continue psych meds Nutritional Asmnt/Malnutr-PDOC - Dietary Evaluation Malnutrition Findings (Please click <Entered> for more info): Nutritional Asmnt/Malnutrition Start: 12/14/17 16: 58 Text: Status: Complete Freq: Document 12/14/17 16:58 FAIZAN (Rec: 12/14/17 17:05 NOLVIA [email or web address]) Nutritional Asmnt/Malnutrition Patient General Information Nutritional Screening Moderate Risk Diagnosis psychosis NOS Pertinent Medical Hx/Surgical Hx CAD, dementia, schizophrenia, weakness, chronic renal insuff Subjective Information Pt seen sleeping at time of visit. Per EMR, PO intake 75%. Current Diet Order/ Nutrition Support mech soft chopped, santosh, high protein nourishment TID Pertinent Medications vit B12, colace, synthroid, megace, seroquel, senna, vit B complex, with vit C Pertinent Labs 12/14BUN 43, Cr 2.5, glucose 94 , ca 10.7 Nutritional Hx/Data Height 1.6 m Height (Calculated Centimeters) 160.0 Current Weight (lbs) 45.359 kg Weight (Calculated Kilograms) 45.4 Weight (Calculated Grams) 77268.2 [place] Body Weight 115 Body Mass Index (BMI) 17.6 Weight Status Underweight GI Symptoms GI Symptoms None Last BM 12/13 x 2 Difficult in: None Skin Integrity/Comment: intact Nutritional Problem No current Nutrition Prob Problem N/A Intervention/Recommendation Comments 1. Continue with current diet as ordered. 2. Monitor PO intake, wt, labs and skin integrity 3. F/U as low risk in 7 days, 12/21 Expected Outcomes/Goals Expected Outcomes/Goals 1. PO intake to meet at least 75% of nutritional needs. 2. Wt stability, skin to remain intact, labs to approach WNL.
[2017-12-18] MEDS: Levothyroxine 0.05 Mg Tab PO SCH (06:31)
[2017-12-18] MEDS: Lactobacillus Rhamnosus GG 15 Billion CFU CAP.SPRINK PO SCH (08:44)
[2017-12-18] MEDS: Vitamin B Complex w/Vitamin C Tab PO SCH (08:44)
--- NOTE | 2017-12-18 09:18 | General Progress Note ---
Subjective - Review of Systems Service Date: 12/18/17 Subjective: Incoherent. Objective - Results Result Diagrams: 12/14/17 07:20 12/14/17 07:20 Recent Labs: Laboratory Last Values WBC 9.5 Th/cmm (4.8-10.8) 12/14/17 07:20 RBC 3.54 Mil/cmm (3.80-5.20) L 12/14/17 07:20 Hgb 11.2 gm/dL (12-16) L 12/14/17 07:20 Hct 33.9 % (41.0-60) L 12/14/17 07:20 MCV 96.0 fl (81-100) 12/14/17 07:20 MCH 31.6 pg (27.0-31.0) H 12/14/17 07:20 MCHC Differential 33.0 pg (28.0-36.0) 12/14/17 07:20 RDW 12.3 % (11.5-20.0) 12/14/17 07:20 Plt Count 191 Th/cmm (150-400) 12/14/17 07:20 MPV 9.5 fl 12/14/17 07:20 Neutrophils % 66.8 % (40.0-80.0) 12/14/17 07:20 Band Neutrophils % 1 % (0-10) 12/09/17 20:17 Lymphocytes % 25.1 % (20.0-50.0) 12/14/17 07:20 Monocytes % 5.6 % (2.0-10.0) 12/14/17 07:20 Eosinophils % 2.0 % (0.0-5.0) 12/14/17 07:20 Basophils % 0.5 % (0.0-2.0) 12/14/17 07:20 Neutrophils (Manual) 56 % (40-80) 12/09/17 20:17 Lymphocytes 35 % (20-50) 12/09/17 20:17 Monocytes 3 % (2-10) 12/09/17 20:17 Eosinophils 5 % (0-5) 12/09/17 20:17 Basophils 0 % (0-3) 12/09/17 20:17 Sodium 141 mEq/L (136-145) 12/14/17 07:20 Potassium 5.1 mEq/L (3.5-5.1) 12/14/17 07:20 Chloride 107 mEq/L (98-107) 12/14/17 07:20 Carbon Dioxide 29.2 mEq/L (21.0-31.0) 12/14/17 07:20 Anion Gap 9.9 (7.0-16.0) 12/14/17 07:20 BUN 43 mg/dL (7-25) H 12/14/17 07:20 Creatinine 2.5 mg/dL (0.6-1.2) H 12/14/17 07:20 Est GFR ( Amer) 24.5 ml/min (>90) 12/14/17 07:20 Est GFR (Non-Af Amer) 20.2 ml/min 12/14/17 07:20 BUN/Creatinine Ratio 17.2 12/14/17 07:20 Glucose 94 mg/dL (70-105) 12/14/17 07:20 Calcium 10.7 mg/dL (8.6-10.3) H 12/14/17 07:20 Total Bilirubin 0.4 mg/dL (0.3-1.0) 12/14/17 07:20 AST 12 U/L (13-39) L 12/14/17 07:20 ALT 7 U/L (7-52) 12/14/17 07:20 Alkaline Phosphatase 43 U/L (34-104) 12/14/17 07:20 Total Protein 6.4 gm/dL (6.0-8.3) 12/14/17 07:20 Albumin 3.5 gm/dL (3.7-5.3) L 12/14/17 07:20 Globulin 2.9 gm/dL 12/14/17 07:20 Albumin/Globulin Ratio 1.2 (1.0-1.8) 12/14/17 07:20 TSH 1.71 uIU/ml (0.34-5.60) 12/09/17 20:17 Urine Source RANDOM 12/09/17 20:30 Urine Color YELLOW 12/09/17 20:30 Urine Clarity SLIGHT CLOUDY (CLEAR) H 12/09/17 20:30 Urine pH 7.5 (4.6 - 8.0) 12/09/17 20:30 Ur Specific [place] 1.010 (1.005-1.030) 12/09/17 20:30 Urine Protein 100 mg/dL (NEGATIVE) H 12/09/17 20:30 Urine Glucose (UA) NEGATIVE mg/dL (NEGATIVE) 12/09/17 20:30 Urine Ketones NEGATIVE mg/dL (NEGATIVE) 12/09/17 20:30 Urine Blood NEGATIVE (NEGATIVE) 12/09/17 20:30 Urine Nitrate NEGATIVE (NEGATIVE) 12/09/17 20:30 Urine Bilirubin NEGATIVE (NEGATIVE) 12/09/17 20:30 Urine Urobilinogen 0.2 E.U./dL (0.2 - 1.0) 12/09/17 20:30 Ur Leukocyte Esterase LARGE (NEGATIVE) H 12/09/17 20:30 Urine RBC 2-5 /hpf (0-5) 12/09/17 20:30 Urine WBC 10-25 /hpf (0-5) H 12/09/17 20:30 Ur Epithelial Cells OCCASIONAL /lpf (FEW) 12/09/17 20:30 Urine Bacteria FEW /hpf (NONE SEEN) 12/09/17 20:30 - Physical Exam Vitals and I&O: Vital Signs Temp 99.9 F 12/18/17 06:39 Pulse 79 12/18/17 06:39 Resp 18 12/18/17 06:39 BP 140/80 12/18/17 06:39 Pulse Ox 97 12/18/17 06:39 Intake & Output 12/17/17 12/18/17 12/18/17 18:59 06:59 18:59 Intake Total 1400 560 Balance 1400 560 Intake: Oral 1400 560 Other: # Voids 4 2 # Bowel Movements 1 Stool Characteristics Soft Soft Active Medications: Current Medications Acetaminophen (Tylenol) 650 mg PO Q4HR PRN PRN Reason: Mild Pain / Temp above 100 Stop: 02/07/18 23:32 Cyanocobalamin (Vitamin B12) 100 mcg PO DAILY [facility] Stop: 02/08/18 08:59 Last Admin: 12/18/17 08:48 Dose: 100 mcg Docusate Sodium (Colace) 100 mg PO DAILY [facility] [place] Stop: 02/08/18 08:59 Last Admin: 12/18/17 08:44 Dose: 100 mg Lactobacillus Rhamnosus (Culturelle 15b) 1 each PO DAILY [facility] [place] Stop: 02/14/18 08:59 Last Admin: 12/18/17 08:44 Dose: 1 each Levothyroxine Sodium (Synthroid) 0.05 mg PO QDAC [facility] Stop: 02/08/18 07:29 Last Admin: 12/18/17 06:31 Dose: 0.05 mg Lorazepam (Ativan) 0.5 mg PO Q4HR PRN; Protocol PRN Reason: Anxiety Stop: 01/08/18 23:32 Last Admin: 12/17/17 20:44 Dose: 0.5 mg Magnesium Hydroxide (Milk Of Magnesia) 30 ml PO DAILY PRN PRN Reason: Constipation Stop: 02/07/18 23:45 Megestrol Acetate (Megace) 400 mg PO DAILY [facility] Stop: 02/08/18 08:59 Last Admin: 12/18/17 08:44 Dose: 400 mg Miscellaneous (Probiotic Screen) 1 ea MC PRN PRN PRN Reason: PROTOCOL Stop: 02/13/18 11:59 Quetiapine Fumarate (Seroquel) 50 mg PO BID [facility] PRN Reason: Protocol Stop: 02/15/18 16:59 Last Admin: 12/18/17 08:44 Dose: 50 mg Senna (Senna) 17.2 mg PO HS [facility] Stop: 02/08/18 20:59 Last Admin: 12/17/17 20:43 Dose: 17.2 mg Vitamin B Complex/Vit C/Folic Acid (Vitamin B Complex W/Vitamin C) 1 tab PO DAILY [facility] Stop: 02/08/18 08:59 Last Admin: 12/18/17 08:44 Dose: 1 tab Zolpidem Tartrate (Ambien) 5 mg PO HS PRN PRN Reason: Insomnia Stop: 02/07/18 23:32 Last Admin: 12/17/17 20:43 Dose: 5 mg General: Alert, No acute distress HEENT: Atraumatic Neck: Supple, +2 carotid pulse wo bruit Cardiovascular: Regular rate, Normal S1, Normal S2 Lungs: Clear to auscultation Abdomen: Bowel sounds, Soft Extremities: Other (No edema) Neurological: Sensation intact Skin: no Rash Psych/Mental Status: Other (Confused, not oriented, agitated) - Procedures Procedures: Procedures Procedure Code Date OTHER GROUP THERAPY 94.44 10/14/10 RECREATIONAL THERAPY 93.81 10/14/10 Assessment/Plan - Assessment Assessment: Patient is awake, alert, calm in no acute distress. Dx: increased in agitation, UTI, Hypothyroidism, CKD, Polyarthritis - Plan Plan: Patient is under Psychiatric care. She is continue with SNF meds. Ceftriaxone is added. Creatinine still high. follow by nephro. Will continue to monitor. Nutritional Asmnt/Malnutr-PDOC - Dietary Evaluation Malnutrition Findings (Please click <Entered> for more info): Nutritional Asmnt/Malnutrition Start: 12/14/17 16: 58 Text: Status: Complete Freq: Document 12/14/17 16:58 [facility] (Rec: 12/14/17 17[email or web address] Nutritional Asmnt/Malnutrition Patient General Information Nutritional Screening Moderate Risk Diagnosis psychosis NOS Pertinent Medical Hx/Surgical Hx CAD, dementia, schizophrenia, weakness, chronic renal insuff Subjective Information Pt seen sleeping at time of visit. Per EMR, PO intake 75%. Current Diet Order/ Nutrition Support mech soft chopped, santosh, high protein nourishment TID Pertinent Medications vit B12, colace, synthroid, megace, seroquel, senna, vit B complex, with vit C Pertinent Labs 12/14BUN 43, Cr 2.5, glucose 94 , ca 10.7 Nutritional Hx/Data Height 1.6 m Height (Calculated Centimeters) 160.0 Current Weight (lbs) 45.359 kg Weight (Calculated Kilograms) 45.4 Weight (Calculated Grams) 28839.2 [place] Body Weight 115 Body Mass Index (BMI) 17.6 Weight Status Underweight GI Symptoms GI Symptoms None Last BM 12/13 x 2 Difficult in: None Skin Integrity/Comment: intact Nutritional Problem No current Nutrition Prob Problem N/A Intervention/Recommendation Comments 1. Continue with current diet as ordered. 2. Monitor PO intake, wt, labs and skin integrity 3. F/U as low risk in 7 days, 12/21 Expected Outcomes/Goals Expected Outcomes/Goals 1. PO intake to meet at least 75% of nutritional needs. 2. Wt stability, skin to remain intact, labs to approach WNL.
--- NOTE | 2017-12-18 16:42 | General Progress Note ---
Subjective - Review of Systems Service Date: 12/18/17 Subjective: still agitated, paranoid Objective - Results Result Diagrams: 12/14/17 07:20 12/14/17 07:20 Recent Labs: Laboratory Last Values WBC 9.5 Th/cmm (4.8-10.8) 12/14/17 07:20 RBC 3.54 Mil/cmm (3.80-5.20) L 12/14/17 07:20 Hgb 11.2 gm/dL (12-16) L 12/14/17 07:20 Hct 33.9 % (41.0-60) L 12/14/17 07:20 MCV 96.0 fl (81-100) 12/14/17 07:20 MCH 31.6 pg (27.0-31.0) H 12/14/17 07:20 MCHC Differential 33.0 pg (28.0-36.0) 12/14/17 07:20 RDW 12.3 % (11.5-20.0) 12/14/17 07:20 Plt Count 191 Th/cmm (150-400) 12/14/17 07:20 MPV 9.5 fl 12/14/17 07:20 Neutrophils % 66.8 % (40.0-80.0) 12/14/17 07:20 Band Neutrophils % 1 % (0-10) 12/09/17 20:17 Lymphocytes % 25.1 % (20.0-50.0) 12/14/17 07:20 Monocytes % 5.6 % (2.0-10.0) 12/14/17 07:20 Eosinophils % 2.0 % (0.0-5.0) 12/14/17 07:20 Basophils % 0.5 % (0.0-2.0) 12/14/17 07:20 Neutrophils (Manual) 56 % (40-80) 12/09/17 20:17 Lymphocytes 35 % (20-50) 12/09/17 20:17 Monocytes 3 % (2-10) 12/09/17 20:17 Eosinophils 5 % (0-5) 12/09/17 20:17 Basophils 0 % (0-3) 12/09/17 20:17 Sodium 141 mEq/L (136-145) 12/14/17 07:20 Potassium 5.1 mEq/L (3.5-5.1) 12/14/17 07:20 Chloride 107 mEq/L (98-107) 12/14/17 07:20 Carbon Dioxide 29.2 mEq/L (21.0-31.0) 12/14/17 07:20 Anion Gap 9.9 (7.0-16.0) 12/14/17 07:20 BUN 43 mg/dL (7-25) H 12/14/17 07:20 Creatinine 2.5 mg/dL (0.6-1.2) H 12/14/17 07:20 Est GFR ( Amer) 24.5 ml/min (>90) 12/14/17 07:20 Est GFR (Non-Af Amer) 20.2 ml/min 12/14/17 07:20 BUN/Creatinine Ratio 17.2 12/14/17 07:20 Glucose 94 mg/dL (70-105) 12/14/17 07:20 Calcium 10.7 mg/dL (8.6-10.3) H 12/14/17 07:20 Total Bilirubin 0.4 mg/dL (0.3-1.0) 12/14/17 07:20 AST 12 U/L (13-39) L 12/14/17 07:20 ALT 7 U/L (7-52) 12/14/17 07:20 Alkaline Phosphatase 43 U/L (34-104) 12/14/17 07:20 Total Protein 6.4 gm/dL (6.0-8.3) 12/14/17 07:20 Albumin 3.5 gm/dL (3.7-5.3) L 12/14/17 07:20 Globulin 2.9 gm/dL 12/14/17 07:20 Albumin/Globulin Ratio 1.2 (1.0-1.8) 12/14/17 07:20 TSH 1.71 uIU/ml (0.34-5.60) 12/09/17 20:17 Urine Source RANDOM 12/09/17 20:30 Urine Color YELLOW 12/09/17 20:30 Urine Clarity SLIGHT CLOUDY (CLEAR) H 12/09/17 20:30 Urine pH 7.5 (4.6 - 8.0) 12/09/17 20:30 Ur Specific [place] 1.010 (1.005-1.030) 12/09/17 20:30 Urine Protein 100 mg/dL (NEGATIVE) H 12/09/17 20:30 Urine Glucose (UA) NEGATIVE mg/dL (NEGATIVE) 12/09/17 20:30 Urine Ketones NEGATIVE mg/dL (NEGATIVE) 12/09/17 20:30 Urine Blood NEGATIVE (NEGATIVE) 12/09/17 20:30 Urine Nitrate NEGATIVE (NEGATIVE) 12/09/17 20:30 Urine Bilirubin NEGATIVE (NEGATIVE) 12/09/17 20:30 Urine Urobilinogen 0.2 E.U./dL (0.2 - 1.0) 12/09/17 20:30 Ur Leukocyte Esterase LARGE (NEGATIVE) H 12/09/17 20:30 Urine RBC 2-5 /hpf (0-5) 12/09/17 20:30 Urine WBC 10-25 /hpf (0-5) H 12/09/17 20:30 Ur Epithelial Cells OCCASIONAL /lpf (FEW) 12/09/17 20:30 Urine Bacteria FEW /hpf (NONE SEEN) 12/09/17 20:30 - Physical Exam Vitals and I&O: Vital Signs Temp 98.2 F 12/18/17 16:05 Pulse 90 12/18/17 16:05 Resp 18 12/18/17 16:05 BP 128/66 12/18/17 16:05 Pulse Ox 97 12/18/17 16:05 Intake & Output 12/17/17 12/18/17 12/18/17 18:59 06:59 18:59 Intake Total 1400 560 850 Balance 1400 560 850 Intake: Oral 1400 560 850 Other: # Voids 4 2 4 # Bowel Movements 1 Stool Characteristics Soft Soft Soft Active Medications: Current Medications Acetaminophen (Tylenol) 650 mg PO Q4HR PRN PRN Reason: Mild Pain / Temp above 100 Stop: 02/07/18 23:32 Cyanocobalamin (Vitamin B12) 100 mcg PO DAILY [facility] Stop: 02/08/18 08:59 Last Admin: 12/18/17 08:48 Dose: 100 mcg Docusate Sodium (Colace) 100 mg PO DAILY [facility] Stop: 02/08/18 08:59 Last Admin: 12/18/17 08:44 Dose: 100 mg Lactobacillus Rhamnosus (Culturelle 15b) 1 each PO DAILY [facility] Stop: 02/14/18 08:59 Last Admin: 12/18/17 08:44 Dose: 1 each Levothyroxine Sodium (Synthroid) 0.05 mg PO QDAC [facility] Stop: 02/08/18 07:29 Last Admin: 12/18/17 06:31 Dose: 0.05 mg Lorazepam (Ativan) 0.5 mg PO Q4HR PRN; Protocol PRN Reason: Anxiety Stop: 01/08/18 23:32 Last Admin: 12/17/17 20:44 Dose: 0.5 mg Magnesium Hydroxide (Milk Of Magnesia) 30 ml PO DAILY PRN PRN Reason: Constipation Stop: 02/07/18 23:45 Megestrol Acetate (Megace) 400 mg PO DAILY [facility] Stop: 02/08/18 08:59 Last Admin: 12/18/17 08:44 Dose: 400 mg Miscellaneous (Probiotic Screen) 1 ea MC PRN PRN PRN Reason: PROTOCOL Stop: 02/13/18 11:59 Quetiapine Fumarate (Seroquel) 50 mg PO BID [facility] PRN Reason: Protocol Stop: 02/15/18 16:59 Last Admin: 12/18/17 16:31 Dose: 50 mg Senna (Senna) 17.2 mg PO HS [facility] Stop: 02/08/18 20:59 Last Admin: 12/17/17 20:43 Dose: 17.2 mg Vitamin B Complex/Vit C/Folic Acid (Vitamin B Complex W/Vitamin C) 1 tab PO DAILY [facility] Stop: 02/08/18 08:59 Last Admin: 12/18/17 08:44 Dose: 1 tab Zolpidem Tartrate (Ambien) 5 mg PO HS PRN PRN Reason: Insomnia Stop: 02/07/18 23:32 Last Admin: 12/17/17 20:43 Dose: 5 mg General: Alert, No acute distress HEENT: Atraumatic Neck: Supple, +2 carotid pulse wo bruit Cardiovascular: Regular rate, Normal S1, Normal S2 Lungs: Clear to auscultation Abdomen: Bowel sounds, Soft Extremities: Other (No edema) Neurological: Sensation intact Skin: no Rash Psych/Mental Status: Other (Confused, not oriented, agitated) - Procedures Procedures: Procedures Procedure Code Date OTHER GROUP THERAPY 94.44 10/14/10 RECREATIONAL THERAPY 93.81 10/14/10 Assessment/Plan - Assessment Assessment: CKD Acute decomp of Psychosis CAD Hypothyroid - Plan Plan: Current Medications Acetaminophen (Tylenol) 650 mg PO Q4HR PRN PRN Reason: Mild Pain / Temp above 100 Stop: 02/07/18 23:32 Cyanocobalamin (Vitamin B12) 100 mcg PO DAILY [facility] Stop: 02/08/18 08:59 Last Admin: 12/12/17 08:39 Dose: 100 mcg Docusate Sodium (Colace) 100 mg PO DAILY [facility] Stop: 02/08/18 08:59 Last Admin: 12/12/17 08:40 Dose: 100 mg Levothyroxine Sodium (Synthroid) 0.05 mg PO QDAC [facility] Stop: 02/08/18 07:29 Last Admin: 12/12/17 06:32 Dose: 0.05 mg Lorazepam (Ativan) 0.5 mg PO Q4HR PRN; Protocol PRN Reason: Anxiety Stop: 01/08/18 23:32 Magnesium Hydroxide (Milk Of Magnesia) 30 ml PO DAILY PRN PRN Reason: Constipation Stop: 02/07/18 23:45 Megestrol Acetate (Megace) 400 mg PO DAILY [facility] Stop: 02/08/18 08:59 Last Admin: 12/12/17 08:40 Dose: 400 mg Quetiapine Fumarate (Seroquel) 12.5 mg PO BID [facility]E PRN Reason: Protocol Stop: 02/08/18 16:59 Last Admin: 12/12/17 08:40 Dose: 12.5 mg Senna (Senna) 17.2 mg PO HS [facility] Stop: 02/08/18 20:59 Last Admin: 12/11/17 21:41 Dose: 17.2 mg Vitamin B Complex/Vit C/Folic Acid (Vitamin B Complex W/Vitamin C) 1 tab PO DAILY [facility] Stop: 02/08/18 08:59 Last Admin: 12/12/17 08:40 Dose: 1 tab Zolpidem Tartrate (Ambien) 5 mg PO HS PRN PRN Reason: Insomnia Stop: 02/07/18 23:32 Lab - Result Diagrams 12/14/17 07:20 12/14/17 07:20 kidney fnc stable @ 2.5 which is her baseline encourage po intake continue psych meds Nutritional Asmnt/Malnutr-PDOC - Dietary Evaluation Malnutrition Findings (Please click <Entered> for more info): Nutritional Asmnt/Malnutrition Start: 12/14/17 16: 58 Text: Status: Complete Freq: Document 12/14/17 16:58 ISMA (Rec: 12/14/17 17:05 [email or web address] [email or web address]) Nutritional Asmnt/Malnutrition Patient General Information Nutritional Screening Moderate Risk Diagnosis psychosis NOS Pertinent Medical Hx/Surgical Hx CAD, dementia, schizophrenia, weakness, chronic renal insuff Subjective Information Pt seen sleeping at time of visit. Per EMR, PO intake 75%. Current Diet Order/ Nutrition Support mech soft chopped, santosh, high protein nourishment TID Pertinent Medications vit B12, colace, synthroid, megace, seroquel, senna, vit B complex, with vit C Pertinent Labs 12/14BUN 43, Cr 2.5, glucose 94 , ca 10.7 Nutritional Hx/Data Height 1.6 m Height (Calculated Centimeters) 160.0 Current Weight (lbs) 45.359 kg Weight (Calculated Kilograms) 45.4 Weight (Calculated Grams) 78242.2 [place] Body Weight 115 Body Mass Index (BMI) 17.6 Weight Status Underweight GI Symptoms GI Symptoms None Last BM 12/13 x 2 Difficult in: None Skin Integrity/Comment: intact Nutritional Problem No current Nutrition Prob Problem N/A Intervention/Recommendation Comments 1. Continue with current diet as ordered. 2. Monitor PO intake, wt, labs and skin integrity 3. F/U as low risk in 7 days, 12/21 Expected Outcomes/Goals Expected Outcomes/Goals 1. PO intake to meet at least 75% of nutritional needs. 2. Wt stability, skin to remain intact, labs to approach WNL.
--- NOTE | 2017-12-18 20:12 | Progress Notes ---
DATE: 12/17/2017 SUBJECTIVE: The patient was seen and evaluated, chart reviewed. This is Dr. Lee covering for Dr. Lizarraga. A 72-year-old female who had broken a window from [employer] after being paranoid and psychotic. ____. The patient continues to be agitated, disorganized. Today, on [id number] evaluation, the patient continues to be looking out of the window as she is talking from someone else's threat. She is disengaged, suspicious and paranoid. MENTAL STATUS EXAMINATION: Continues to respond heavy with talking to the window. ASSESSMENT AND PLAN: The patient is a 72-year-old female who continues to present psychotic and disorganized. We will continue with Seroquel at 37.5 b.i.d. and continue titrating in the next 24 hours as she continues to be disorganized and distraught by the voices. JOB# [id number]
[2017-12-19] MEDS: Levothyroxine 0.05 Mg Tab PO SCH (06:43)
--- NOTE | 2017-12-19 07:23 | Progress Notes ---
DATE: 12/18/2017 SUBJECTIVE: The patient was seen and evaluated. The patient's chart reviewed. This is Dr. Lee covering for Dr. Lizarraga. Today on [id number] evaluation, the patient is in her bed; upon approach, continues to easily verbally be assaultive, agitated, slightly restless, but still needing some redirections. MENTAL STATUS EXAMINATION: Needing a lot of redirection for simple ADLs, disengaged, irritable, agitated, and verbally aggressive. ASSESSMENT AND PLAN: The patient continues to be easily agitated unpredictable. We will continue with the current medication regimen, which include quetiapine at 50 mg p.o. b.i.d., which she is able to tolerate without sedation or oversedation. JOB# [id number]
[2017-12-19] MEDS: Vitamin B Complex w/Vitamin C Tab PO SCH (08:36)
[2017-12-19] MEDS: Lactobacillus Rhamnosus GG 15 Billion CFU CAP.SPRINK PO SCH (08:37)
--- NOTE | 2017-12-19 11:41 | General Progress Note ---
Subjective - Review of Systems Service Date: 12/19/17 Subjective: still agitated, paranoid Objective - Results Result Diagrams: 12/14/17 07:20 12/14/17 07:20 Recent Labs: Laboratory Last Values WBC 9.5 Th/cmm (4.8-10.8) 12/14/17 07:20 RBC 3.54 Mil/cmm (3.80-5.20) L 12/14/17 07:20 Hgb 11.2 gm/dL (12-16) L 12/14/17 07:20 Hct 33.9 % (41.0-60) L 12/14/17 07:20 MCV 96.0 fl (81-100) 12/14/17 07:20 MCH 31.6 pg (27.0-31.0) H 12/14/17 07:20 MCHC Differential 33.0 pg (28.0-36.0) 12/14/17 07:20 RDW 12.3 % (11.5-20.0) 12/14/17 07:20 Plt Count 191 Th/cmm (150-400) 12/14/17 07:20 MPV 9.5 fl 12/14/17 07:20 Neutrophils % 66.8 % (40.0-80.0) 12/14/17 07:20 Band Neutrophils % 1 % (0-10) 12/09/17 20:17 Lymphocytes % 25.1 % (20.0-50.0) 12/14/17 07:20 Monocytes % 5.6 % (2.0-10.0) 12/14/17 07:20 Eosinophils % 2.0 % (0.0-5.0) 12/14/17 07:20 Basophils % 0.5 % (0.0-2.0) 12/14/17 07:20 Neutrophils (Manual) 56 % (40-80) 12/09/17 20:17 Lymphocytes 35 % (20-50) 12/09/17 20:17 Monocytes 3 % (2-10) 12/09/17 20:17 Eosinophils 5 % (0-5) 12/09/17 20:17 Basophils 0 % (0-3) 12/09/17 20:17 Sodium 141 mEq/L (136-145) 12/14/17 07:20 Potassium 5.1 mEq/L (3.5-5.1) 12/14/17 07:20 Chloride 107 mEq/L (98-107) 12/14/17 07:20 Carbon Dioxide 29.2 mEq/L (21.0-31.0) 12/14/17 07:20 Anion Gap 9.9 (7.0-16.0) 12/14/17 07:20 BUN 43 mg/dL (7-25) H 12/14/17 07:20 Creatinine 2.5 mg/dL (0.6-1.2) H 12/14/17 07:20 Est GFR ( Amer) 24.5 ml/min (>90) 12/14/17 07:20 Est GFR (Non-Af Amer) 20.2 ml/min 12/14/17 07:20 BUN/Creatinine Ratio 17.2 12/14/17 07:20 Glucose 94 mg/dL (70-105) 12/14/17 07:20 Calcium 10.7 mg/dL (8.6-10.3) H 12/14/17 07:20 Total Bilirubin 0.4 mg/dL (0.3-1.0) 12/14/17 07:20 AST 12 U/L (13-39) L 12/14/17 07:20 ALT 7 U/L (7-52) 12/14/17 07:20 Alkaline Phosphatase 43 U/L (34-104) 12/14/17 07:20 Total Protein 6.4 gm/dL (6.0-8.3) 12/14/17 07:20 Albumin 3.5 gm/dL (3.7-5.3) L 12/14/17 07:20 Globulin 2.9 gm/dL 12/14/17 07:20 Albumin/Globulin Ratio 1.2 (1.0-1.8) 12/14/17 07:20 TSH 1.71 uIU/ml (0.34-5.60) 12/09/17 20:17 Urine Source RANDOM 12/09/17 20:30 Urine Color YELLOW 12/09/17 20:30 Urine Clarity SLIGHT CLOUDY (CLEAR) H 12/09/17 20:30 Urine pH 7.5 (4.6 - 8.0) 12/09/17 20:30 Ur Specific [place] 1.010 (1.005-1.030) 12/09/17 20:30 Urine Protein 100 mg/dL (NEGATIVE) H 12/09/17 20:30 Urine Glucose (UA) NEGATIVE mg/dL (NEGATIVE) 12/09/17 20:30 Urine Ketones NEGATIVE mg/dL (NEGATIVE) 12/09/17 20:30 Urine Blood NEGATIVE (NEGATIVE) 12/09/17 20:30 Urine Nitrate NEGATIVE (NEGATIVE) 12/09/17 20:30 Urine Bilirubin NEGATIVE (NEGATIVE) 12/09/17 20:30 Urine Urobilinogen 0.2 E.U./dL (0.2 - 1.0) 12/09/17 20:30 Ur Leukocyte Esterase LARGE (NEGATIVE) H 12/09/17 20:30 Urine RBC 2-5 /hpf (0-5) 12/09/17 20:30 Urine WBC 10-25 /hpf (0-5) H 12/09/17 20:30 Ur Epithelial Cells OCCASIONAL /lpf (FEW) 12/09/17 20:30 Urine Bacteria FEW /hpf (NONE SEEN) 12/09/17 20:30 - Physical Exam Vitals and I&O: Vital Signs Temp 98.3 F 12/19/17 05:59 Pulse 87 12/19/17 05:59 Resp 20 12/19/17 05:59 BP 140/73 12/19/17 05:59 Pulse Ox 98 12/19/17 05:59 Intake & Output 12/18/17 12/19/17 12/19/17 18:59 06:59 18:59 Intake Total 850 180 Balance 850 180 Intake: Oral 850 180 Other: # Voids 4 1 # Bowel Movements 0 Stool Characteristics Soft Active Medications: Current Medications Acetaminophen (Tylenol) 650 mg PO Q4HR PRN PRN Reason: Mild Pain / Temp above 100 Stop: 02/07/18 23:32 Cyanocobalamin (Vitamin B12) 100 mcg PO DAILY [facility] Stop: 02/08/18 08:59 Last Admin: 12/19/17 08:36 Dose: 100 mcg Docusate Sodium (Colace) 100 mg PO DAILY [facility] Stop: 02/08/18 08:59 Last Admin: 12/19/17 08:37 Dose: 100 mg Lactobacillus Rhamnosus (Culturelle 15b) 1 each PO DAILY [facility] Stop: 02/14/18 08:59 Last Admin: 12/19/17 08:37 Dose: 1 each Levothyroxine Sodium (Synthroid) 0.05 mg PO QDAC [facility] Stop: 02/08/18 07:29 Last Admin: 12/19/17 06:43 Dose: 0.05 mg Lorazepam (Ativan) 0.5 mg PO Q4HR PRN; Protocol PRN Reason: Anxiety Stop: 01/08/18 23:32 Last Admin: 12/17/17 20:44 Dose: 0.5 mg Magnesium Hydroxide (Milk Of Magnesia) 30 ml PO DAILY PRN PRN Reason: Constipation Stop: 02/07/18 23:45 Megestrol Acetate (Megace) 400 mg PO DAILY [facility] Stop: 02/08/18 08:59 Last Admin: 12/19/17 08:36 Dose: 400 mg Miscellaneous (Probiotic Screen) 1 ea MC PRN PRN PRN Reason: PROTOCOL Stop: 02/13/18 11:59 Quetiapine Fumarate (Seroquel) 50 mg PO BID [facility] PRN Reason: Protocol Stop: 02/15/18 16:59 Last Admin: 12/19/17 08:36 Dose: 50 mg Senna (Senna) 17.2 mg PO HS [facility] Stop: 02/08/18 20:59 Last Admin: 12/18/17 20:48 Dose: 17.2 mg Vitamin B Complex/Vit C/Folic Acid (Vitamin B Complex W/Vitamin C) 1 tab PO DAILY [facility] Stop: 02/08/18 08:59 Last Admin: 12/19/17 08:36 Dose: 1 tab Zolpidem Tartrate (Ambien) 5 mg PO HS PRN PRN Reason: Insomnia Stop: 02/07/18 23:32 Last Admin: 12/18/17 20:49 Dose: 5 mg General: Alert, No acute distress HEENT: Atraumatic Neck: Supple, +2 carotid pulse wo bruit Cardiovascular: Regular rate, Normal S1, Normal S2 Lungs: Clear to auscultation Abdomen: Bowel sounds, Soft Extremities: Other (No edema) Neurological: Sensation intact Skin: no Rash Psych/Mental Status: Other (Confused, not oriented, agitated) - Procedures Procedures: Procedures Procedure Code Date OTHER GROUP THERAPY 94.44 10/14/10 RECREATIONAL THERAPY 93.81 10/14/10 Assessment/Plan - Assessment Assessment: CKD Acute decomp of Psychosis CAD Hypothyroid - Plan Plan: Current Medications Acetaminophen (Tylenol) 650 mg PO Q4HR PRN PRN Reason: Mild Pain / Temp above 100 Stop: 02/07/18 23:32 Cyanocobalamin (Vitamin B12) 100 mcg PO DAILY [facility] Stop: 02/08/18 08:59 Last Admin: 12/12/17 08:39 Dose: 100 mcg Docusate Sodium (Colace) 100 mg PO DAILY [facility] Stop: 02/08/18 08:59 Last Admin: 12/12/17 08:40 Dose: 100 mg Levothyroxine Sodium (Synthroid) 0.05 mg PO QDAC [facility] Stop: 02/08/18 07:29 Last Admin: 12/12/17 06:32 Dose: 0.05 mg Lorazepam (Ativan) 0.5 mg PO Q4HR PRN; Protocol PRN Reason: Anxiety Stop: 01/08/18 23:32 Magnesium Hydroxide (Milk Of Magnesia) 30 ml PO DAILY PRN PRN Reason: Constipation Stop: 02/07/18 23:45 Megestrol Acetate (Megace) 400 mg PO DAILY [facility] Stop: 02/08/18 08:59 Last Admin: 12/12/17 08:40 Dose: 400 mg Quetiapine Fumarate (Seroquel) 12.5 mg PO BID AY[facility]E PRN Reason: Protocol Stop: 02/08/18 16:59 Last Admin: 12/12/17 08:40 Dose: 12.5 mg Senna (Senna) 17.2 mg PO HS [facility] Stop: 02/08/18 20:59 Last Admin: 12/11/17 21:41 Dose: 17.2 mg Vitamin B Complex/Vit C/Folic Acid (Vitamin B Complex W/Vitamin C) 1 tab PO DAILY [facility] Stop: 02/08/18 08:59 Last Admin: 12/12/17 08:40 Dose: 1 tab Zolpidem Tartrate (Ambien) 5 mg PO HS PRN PRN Reason: Insomnia Stop: 02/07/18 23:32 Lab - Result Diagrams 12/14/17 07:20 12/14/17 07:20 kidney fnc stable @ 2.5 which is her baseline encourage po intake continue psych meds Nutritional Asmnt/Malnutr-PDOC - Dietary Evaluation Malnutrition Findings (Please click <Entered> for more info): Nutritional Asmnt/Malnutrition Start: 12/14/17 16: 58 Text: Status: Complete Freq: Document 12/14/17 16:58 ISMA (Rec: 12/14/17 17:05 [email or web address] [email or web address]) Nutritional Asmnt/Malnutrition Patient General Information Nutritional Screening Moderate Risk Diagnosis psychosis NOS Pertinent Medical Hx/Surgical Hx CAD, dementia, schizophrenia, weakness, chronic renal insuff Subjective Information Pt seen sleeping at time of visit. Per EMR, PO intake 75%. Current Diet Order/ Nutrition Support mech soft chopped, santosh, high protein nourishment TID Pertinent Medications vit B12, colace, synthroid, megace, seroquel, senna, vit B complex, with vit C Pertinent Labs 12/14BUN 43, Cr 2.5, glucose 94 , ca 10.7 Nutritional Hx/Data Height 1.6 m Height (Calculated Centimeters) 160.0 Current Weight (lbs) 45.359 kg Weight (Calculated Kilograms) 45.4 Weight (Calculated Grams) 49221.2 [place] Body Weight 115 Body Mass Index (BMI) 17.6 Weight Status Underweight GI Symptoms GI Symptoms None Last BM 12/13 x 2 Difficult in: None Skin Integrity/Comment: intact Nutritional Problem No current Nutrition Prob Problem N/A Intervention/Recommendation Comments 1. Continue with current diet as ordered. 2. Monitor PO intake, wt, labs and skin integrity 3. F/U as low risk in 7 days, 12/21 Expected Outcomes/Goals Expected Outcomes/Goals 1. PO intake to meet at least 75% of nutritional needs. 2. Wt stability, skin to remain intact, labs to approach WNL.
--- NOTE | 2017-12-19 13:30 | General Progress Note ---
Subjective - Review of Systems Service Date: 12/19/17 Subjective: Incoherent. Objective - Results Result Diagrams: 12/14/17 07:20 12/14/17 07:20 Recent Labs: Laboratory Last Values WBC 9.5 Th/cmm (4.8-10.8) 12/14/17 07:20 RBC 3.54 Mil/cmm (3.80-5.20) L 12/14/17 07:20 Hgb 11.2 gm/dL (12-16) L 12/14/17 07:20 Hct 33.9 % (41.0-60) L 12/14/17 07:20 MCV 96.0 fl (81-100) 12/14/17 07:20 MCH 31.6 pg (27.0-31.0) H 12/14/17 07:20 MCHC Differential 33.0 pg (28.0-36.0) 12/14/17 07:20 RDW 12.3 % (11.5-20.0) 12/14/17 07:20 Plt Count 191 Th/cmm (150-400) 12/14/17 07:20 MPV 9.5 fl 12/14/17 07:20 Neutrophils % 66.8 % (40.0-80.0) 12/14/17 07:20 Band Neutrophils % 1 % (0-10) 12/09/17 20:17 Lymphocytes % 25.1 % (20.0-50.0) 12/14/17 07:20 Monocytes % 5.6 % (2.0-10.0) 12/14/17 07:20 Eosinophils % 2.0 % (0.0-5.0) 12/14/17 07:20 Basophils % 0.5 % (0.0-2.0) 12/14/17 07:20 Neutrophils (Manual) 56 % (40-80) 12/09/17 20:17 Lymphocytes 35 % (20-50) 12/09/17 20:17 Monocytes 3 % (2-10) 12/09/17 20:17 Eosinophils 5 % (0-5) 12/09/17 20:17 Basophils 0 % (0-3) 12/09/17 20:17 Sodium 141 mEq/L (136-145) 12/14/17 07:20 Potassium 5.1 mEq/L (3.5-5.1) 12/14/17 07:20 Chloride 107 mEq/L (98-107) 12/14/17 07:20 Carbon Dioxide 29.2 mEq/L (21.0-31.0) 12/14/17 07:20 Anion Gap 9.9 (7.0-16.0) 12/14/17 07:20 BUN 43 mg/dL (7-25) H 12/14/17 07:20 Creatinine 2.5 mg/dL (0.6-1.2) H 12/14/17 07:20 Est GFR ( Amer) 24.5 ml/min (>90) 12/14/17 07:20 Est GFR (Non-Af Amer) 20.2 ml/min 12/14/17 07:20 BUN/Creatinine Ratio 17.2 12/14/17 07:20 Glucose 94 mg/dL (70-105) 12/14/17 07:20 Calcium 10.7 mg/dL (8.6-10.3) H 12/14/17 07:20 Total Bilirubin 0.4 mg/dL (0.3-1.0) 12/14/17 07:20 AST 12 U/L (13-39) L 12/14/17 07:20 ALT 7 U/L (7-52) 12/14/17 07:20 Alkaline Phosphatase 43 U/L (34-104) 12/14/17 07:20 Total Protein 6.4 gm/dL (6.0-8.3) 12/14/17 07:20 Albumin 3.5 gm/dL (3.7-5.3) L 12/14/17 07:20 Globulin 2.9 gm/dL 12/14/17 07:20 Albumin/Globulin Ratio 1.2 (1.0-1.8) 12/14/17 07:20 TSH 1.71 uIU/ml (0.34-5.60) 12/09/17 20:17 Urine Source RANDOM 12/09/17 20:30 Urine Color YELLOW 12/09/17 20:30 Urine Clarity SLIGHT CLOUDY (CLEAR) H 12/09/17 20:30 Urine pH 7.5 (4.6 - 8.0) 12/09/17 20:30 Ur Specific [place] 1.010 (1.005-1.030) 12/09/17 20:30 Urine Protein 100 mg/dL (NEGATIVE) H 12/09/17 20:30 Urine Glucose (UA) NEGATIVE mg/dL (NEGATIVE) 12/09/17 20:30 Urine Ketones NEGATIVE mg/dL (NEGATIVE) 12/09/17 20:30 Urine Blood NEGATIVE (NEGATIVE) 12/09/17 20:30 Urine Nitrate NEGATIVE (NEGATIVE) 12/09/17 20:30 Urine Bilirubin NEGATIVE (NEGATIVE) 12/09/17 20:30 Urine Urobilinogen 0.2 E.U./dL (0.2 - 1.0) 12/09/17 20:30 Ur Leukocyte Esterase LARGE (NEGATIVE) H 12/09/17 20:30 Urine RBC 2-5 /hpf (0-5) 12/09/17 20:30 Urine WBC 10-25 /hpf (0-5) H 12/09/17 20:30 Ur Epithelial Cells OCCASIONAL /lpf (FEW) 12/09/17 20:30 Urine Bacteria FEW /hpf (NONE SEEN) 12/09/17 20:30 - Physical Exam Vitals and I&O: Vital Signs Temp 98.3 F 12/19/17 05:59 Pulse 87 12/19/17 05:59 Resp 20 12/19/17 05:59 BP 140/73 12/19/17 05:59 Pulse Ox 98 12/19/17 05:59 Intake & Output 12/18/17 12/19/17 12/19/17 18:59 06:59 18:59 Intake Total 850 180 Balance 850 180 Intake: Oral 850 180 Other: # Voids 4 1 # Bowel Movements 0 Stool Characteristics Soft Active Medications: Current Medications Acetaminophen (Tylenol) 650 mg PO Q4HR PRN PRN Reason: Mild Pain / Temp above 100 Stop: 02/07/18 23:32 Cyanocobalamin (Vitamin B12) 100 mcg PO DAILY [facility] Stop: 02/08/18 08:59 Last Admin: 12/19/17 08:36 Dose: 100 mcg Docusate Sodium (Colace) 100 mg PO DAILY [facility] Stop: 02/08/18 08:59 Last Admin: 12/19/17 08:37 Dose: 100 mg Lactobacillus Rhamnosus (Culturelle 15b) 1 each PO DAILY [facility] Stop: 02/14/18 08:59 Last Admin: 12/19/17 08:37 Dose: 1 each Levothyroxine Sodium (Synthroid) 0.05 mg PO QDAC [facility] Stop: 02/08/18 07:29 Last Admin: 12/19/17 06:43 Dose: 0.05 mg Lorazepam (Ativan) 0.5 mg PO Q4HR PRN; Protocol PRN Reason: Anxiety Stop: 01/08/18 23:32 Last Admin: 12/17/17 20:44 Dose: 0.5 mg Magnesium Hydroxide (Milk Of Magnesia) 30 ml PO DAILY PRN PRN Reason: Constipation Stop: 02/07/18 23:45 Megestrol Acetate (Megace) 400 mg PO DAILY [facility] Stop: 02/08/18 08:59 Last Admin: 12/19/17 08:36 Dose: 400 mg Miscellaneous (Probiotic Screen) 1 ea MC PRN PRN PRN Reason: PROTOCOL Stop: 02/13/18 11:59 Quetiapine Fumarate (Seroquel) 50 mg PO BID [facility] PRN Reason: Protocol Stop: 02/15/18 16:59 Last Admin: 12/19/17 08:36 Dose: 50 mg Senna (Senna) 17.2 mg PO HS [facility] Stop: 02/08/18 20:59 Last Admin: 12/18/17 20:48 Dose: 17.2 mg Vitamin B Complex/Vit C/Folic Acid (Vitamin B Complex W/Vitamin C) 1 tab PO DAILY [facility] Stop: 02/08/18 08:59 Last Admin: 12/19/17 08:36 Dose: 1 tab Zolpidem Tartrate (Ambien) 5 mg PO HS PRN PRN Reason: Insomnia Stop: 02/07/18 23:32 Last Admin: 12/18/17 20:49 Dose: 5 mg General: Alert, No acute distress HEENT: Atraumatic Neck: Supple, +2 carotid pulse wo bruit Cardiovascular: Regular rate, Normal S1, Normal S2 Lungs: Clear to auscultation Abdomen: Bowel sounds, Soft Extremities: Other (No edema) Neurological: Sensation intact Skin: no Rash Psych/Mental Status: Other (Confused, not oriented, agitated) - Procedures Procedures: Procedures Procedure Code Date OTHER GROUP THERAPY 94.44 10/14/10 RECREATIONAL THERAPY 93.81 10/14/10 Assessment/Plan - Assessment Assessment: Patient is awake, alert, calm in no acute distress. Dx: increased in agitation, UTI, Hypothyroidism, CKD, Polyarthritis. - Plan Plan: Patient is under Psychiatric care. She is continue with SNF meds. Ceftriaxone is added. Creatinine still high. follow by nephro. Will continue to monitor. Nutritional Asmnt/Malnutr-PDOC - Dietary Evaluation Malnutrition Findings (Please click <Entered> for more info): Nutritional Asmnt/Malnutrition Start: 12/14/17 16: 58 Text: Status: Complete Freq: Document 12/14/17 16:58 [facility] (Rec: 12/14/17 17:05 [id number]) Nutritional Asmnt/Malnutrition Patient General Information Nutritional Screening Moderate Risk Diagnosis psychosis NOS Pertinent Medical Hx/Surgical Hx CAD, dementia, schizophrenia, weakness, chronic renal insuff Subjective Information Pt seen sleeping at time of visit. Per EMR, PO intake 75%. Current Diet Order/ Nutrition Support mech soft chopped, santosh, high protein nourishment TID Pertinent Medications vit B12, colace, synthroid, megace, seroquel, senna, vit B complex, with vit C Pertinent Labs 12/14BUN 43, Cr 2.5, glucose 94 , ca 10.7 Nutritional Hx/Data Height 1.6 m Height (Calculated Centimeters) 160.0 Current Weight (lbs) 45.359 kg Weight (Calculated Kilograms) 45.4 Weight (Calculated Grams) 87722.2 [place] Body Weight 115 Body Mass Index (BMI) 17.6 Weight Status Underweight GI Symptoms GI Symptoms None Last BM 12/13 x 2 Difficult in: None Skin Integrity/Comment: intact Nutritional Problem No current Nutrition Prob Problem N/A Intervention/Recommendation Comments 1. Continue with current diet as ordered. 2. Monitor PO intake, wt, labs and skin integrity 3. F/U as low risk in 7 days, 12/21 Expected Outcomes/Goals Expected Outcomes/Goals 1. PO intake to meet at least 75% of nutritional needs. 2. Wt stability, skin to remain intact, labs to approach WNL.
--- NOTE | 2017-12-19 20:40 | Progress Notes ---
DATE: 12/19/2017 Case was discussed with staff of the patient, reviewed records and somewhat close to me as I have seen her before covering for Dr. Lizarraga and today I am covering for Dr. Lizarraga. The patient continues to be irritable, paranoid. Continues to need redirection. Continues to be unpredictable, impulsive. She is on Seroquel 50 mg twice a day with no side effects, no sedation, no nausea, no extrapyramidal symptoms and that was increased on 12/17/2017, 2 days ago and she tolerated the increase, so it is too early to make further adjustments and because of her age and will continue outpatient group therapy, milieu therapy, adjust medication as needed. [facility]# [id number]
[2017-12-20] MEDS: Levothyroxine 0.05 Mg Tab PO SCH (06:44)
[2017-12-20] MEDS: Lactobacillus Rhamnosus GG 15 Billion CFU CAP.SPRINK PO SCH (08:27)
[2017-12-20] MEDS: Vitamin B Complex w/Vitamin C Tab PO SCH (08:27)
--- NOTE | 2017-12-20 09:38 | General Progress Note ---
Subjective - Review of Systems Service Date: 12/20/17 Subjective: Incoherent. Objective - Results Result Diagrams: 12/14/17 07:20 12/14/17 07:20 Recent Labs: Laboratory Last Values WBC 9.5 Th/cmm (4.8-10.8) 12/14/17 07:20 RBC 3.54 Mil/cmm (3.80-5.20) L 12/14/17 07:20 Hgb 11.2 gm/dL (12-16) L 12/14/17 07:20 Hct 33.9 % (41.0-60) L 12/14/17 07:20 MCV 96.0 fl (81-100) 12/14/17 07:20 MCH 31.6 pg (27.0-31.0) H 12/14/17 07:20 MCHC Differential 33.0 pg (28.0-36.0) 12/14/17 07:20 RDW 12.3 % (11.5-20.0) 12/14/17 07:20 Plt Count 191 Th/cmm (150-400) 12/14/17 07:20 MPV 9.5 fl 12/14/17 07:20 Neutrophils % 66.8 % (40.0-80.0) 12/14/17 07:20 Band Neutrophils % 1 % (0-10) 12/09/17 20:17 Lymphocytes % 25.1 % (20.0-50.0) 12/14/17 07:20 Monocytes % 5.6 % (2.0-10.0) 12/14/17 07:20 Eosinophils % 2.0 % (0.0-5.0) 12/14/17 07:20 Basophils % 0.5 % (0.0-2.0) 12/14/17 07:20 Neutrophils (Manual) 56 % (40-80) 12/09/17 20:17 Lymphocytes 35 % (20-50) 12/09/17 20:17 Monocytes 3 % (2-10) 12/09/17 20:17 Eosinophils 5 % (0-5) 12/09/17 20:17 Basophils 0 % (0-3) 12/09/17 20:17 Sodium 141 mEq/L (136-145) 12/14/17 07:20 Potassium 5.1 mEq/L (3.5-5.1) 12/14/17 07:20 Chloride 107 mEq/L (98-107) 12/14/17 07:20 Carbon Dioxide 29.2 mEq/L (21.0-31.0) 12/14/17 07:20 Anion Gap 9.9 (7.0-16.0) 12/14/17 07:20 BUN 43 mg/dL (7-25) H 12/14/17 07:20 Creatinine 2.5 mg/dL (0.6-1.2) H 12/14/17 07:20 Est GFR ( Amer) 24.5 ml/min (>90) 12/14/17 07:20 Est GFR (Non-Af Amer) 20.2 ml/min 12/14/17 07:20 BUN/Creatinine Ratio 17.2 12/14/17 07:20 Glucose 94 mg/dL (70-105) 12/14/17 07:20 Calcium 10.7 mg/dL (8.6-10.3) H 12/14/17 07:20 Total Bilirubin 0.4 mg/dL (0.3-1.0) 12/14/17 07:20 AST 12 U/L (13-39) L 12/14/17 07:20 ALT 7 U/L (7-52) 12/14/17 07:20 Alkaline Phosphatase 43 U/L (34-104) 12/14/17 07:20 Total Protein 6.4 gm/dL (6.0-8.3) 12/14/17 07:20 Albumin 3.5 gm/dL (3.7-5.3) L 12/14/17 07:20 Globulin 2.9 gm/dL 12/14/17 07:20 Albumin/Globulin Ratio 1.2 (1.0-1.8) 12/14/17 07:20 TSH 1.71 uIU/ml (0.34-5.60) 12/09/17 20:17 Urine Source RANDOM 12/09/17 20:30 Urine Color YELLOW 12/09/17 20:30 Urine Clarity SLIGHT CLOUDY (CLEAR) H 12/09/17 20:30 Urine pH 7.5 (4.6 - 8.0) 12/09/17 20:30 Ur Specific [place] 1.010 (1.005-1.030) 12/09/17 20:30 Urine Protein 100 mg/dL (NEGATIVE) H 12/09/17 20:30 Urine Glucose (UA) NEGATIVE mg/dL (NEGATIVE) 12/09/17 20:30 Urine Ketones NEGATIVE mg/dL (NEGATIVE) 12/09/17 20:30 Urine Blood NEGATIVE (NEGATIVE) 12/09/17 20:30 Urine Nitrate NEGATIVE (NEGATIVE) 12/09/17 20:30 Urine Bilirubin NEGATIVE (NEGATIVE) 12/09/17 20:30 Urine Urobilinogen 0.2 E.U./dL (0.2 - 1.0) 12/09/17 20:30 Ur Leukocyte Esterase LARGE (NEGATIVE) H 12/09/17 20:30 Urine RBC 2-5 /hpf (0-5) 12/09/17 20:30 Urine WBC 10-25 /hpf (0-5) H 12/09/17 20:30 Ur Epithelial Cells OCCASIONAL /lpf (FEW) 12/09/17 20:30 Urine Bacteria FEW /hpf (NONE SEEN) 12/09/17 20:30 - Physical Exam Vitals and I&O: Vital Signs Temp 98.1 F 12/20/17 06:41 Pulse 72 12/20/17 06:41 Resp 19 12/20/17 06:41 BP 147/71 12/20/17 06:41 Pulse Ox 97 12/20/17 06:41 Intake & Output 12/19/17 12/20/17 12/20/17 18:59 06:59 18:59 Intake Total 950 240 Output Total 1 Balance 950 239 Intake: Oral 950 240 Output: Stool 1 Other: # Voids 4 3 # Bowel Movements 1 1 Active Medications: Current Medications Acetaminophen (Tylenol) 650 mg PO Q4HR PRN PRN Reason: Mild Pain / Temp above 100 Stop: 02/07/18 23:32 Cyanocobalamin (Vitamin B12) 100 mcg PO DAILY [facility] Stop: 02/08/18 08:59 Last Admin: 12/20/17 08:27 Dose: 100 mcg Docusate Sodium (Colace) 100 mg PO DAILY [facility] Stop: 02/08/18 08:59 Last Admin: 12/20/17 08:27 Dose: 100 mg Lactobacillus Rhamnosus (Culturelle 15b) 1 each PO DAILY [facility] Stop: 02/14/18 08:59 Last Admin: 12/20/17 08:27 Dose: 1 each Levothyroxine Sodium (Synthroid) 0.05 mg PO QDAC [facility] Stop: 02/08/18 07:29 Last Admin: 12/20/17 06:44 Dose: 0.05 mg Lorazepam (Ativan) 0.5 mg PO Q4HR PRN; Protocol PRN Reason: Anxiety Stop: 01/08/18 23:32 Last Admin: 12/17/17 20:44 Dose: 0.5 mg Magnesium Hydroxide (Milk Of Magnesia) 30 ml PO DAILY PRN PRN Reason: Constipation Stop: 02/07/18 23:45 Megestrol Acetate (Megace) 400 mg PO DAILY [facility] Stop: 02/08/18 08:59 Last Admin: 12/20/17 08:27 Dose: 400 mg Miscellaneous (Probiotic Screen) 1 ea MC PRN PRN PRN Reason: PROTOCOL Stop: 02/13/18 11:59 Quetiapine Fumarate (Seroquel) 50 mg PO BID [facility] PRN Reason: Protocol Stop: 02/15/18 16:59 Last Admin: 12/20/17 08:27 Dose: 50 mg Senna (Senna) 17.2 mg PO HS [facility] Stop: 02/08/18 20:59 Last Admin: 12/19/17 20:12 Dose: 17.2 mg Vitamin B Complex/Vit C/Folic Acid (Vitamin B Complex W/Vitamin C) 1 tab PO DAILY [facility] Stop: 02/08/18 08:59 Last Admin: 12/20/17 08:27 Dose: 1 tab Zolpidem Tartrate (Ambien) 5 mg PO HS PRN PRN Reason: Insomnia Stop: 02/07/18 23:32 Last Admin: 12/18/17 20:49 Dose: 5 mg General: Alert, No acute distress HEENT: Atraumatic Neck: Supple, +2 carotid pulse wo bruit Cardiovascular: Regular rate, Normal S1, Normal S2 Lungs: Clear to auscultation Abdomen: Bowel sounds, Soft Extremities: Other (No edema) Neurological: Sensation intact Skin: no Rash Psych/Mental Status: Other (Confused, not oriented, agitated) - Procedures Procedures: Procedures Procedure Code Date OTHER GROUP THERAPY 94.44 10/14/10 RECREATIONAL THERAPY 93.81 10/14/10 Assessment/Plan - Assessment Assessment: Patient is awake, alert, calm in no acute distress. Dx: increased in agitation, UTI, Hypothyroidism, CKD, Polyarthritis. - Plan Plan: Patient is under Psychiatric care. She is continue with SNF meds. Ceftriaxone is added. Creatinine still high. follow by nephro. Will continue to monitor Nutritional Asmnt/Malnutr-PDOC - Dietary Evaluation Malnutrition Findings (Please click <Entered> for more info): Nutritional Asmnt/Malnutrition Start: 12/14/17 16: 58 Text: Status: Complete Freq: Document 12/14/17 16:58 [facility] (Rec: 12/14/17 17:05 [email or web address]) Nutritional Asmnt/Malnutrition Patient General Information Nutritional Screening Moderate Risk Diagnosis psychosis NOS Pertinent Medical Hx/Surgical Hx CAD, dementia, schizophrenia, weakness, chronic renal insuff Subjective Information Pt seen sleeping at time of visit. Per EMR, PO intake 75%. Current Diet Order/ Nutrition Support mech soft chopped, santosh, high protein nourishment TID Pertinent Medications vit B12, colace, synthroid, megace, seroquel, senna, vit B complex, with vit C Pertinent Labs 12/14BUN 43, Cr 2.5, glucose 94 , ca 10.7 Nutritional Hx/Data Height 1.6 m Height (Calculated Centimeters) 160.0 Current Weight (lbs) 45.359 kg Weight (Calculated Kilograms) 45.4 Weight (Calculated Grams) 35076.2 [place] Body Weight 115 Body Mass Index (BMI) 17.6 Weight Status Underweight GI Symptoms GI Symptoms None Last BM 12/13 x 2 Difficult in: None Skin Integrity/Comment: intact Nutritional Problem No current Nutrition Prob Problem N/A Intervention/Recommendation Comments 1. Continue with current diet as ordered. 2. Monitor PO intake, wt, labs and skin integrity 3. F/U as low risk in 7 days, 12/21 Expected Outcomes/Goals Expected Outcomes/Goals 1. PO intake to meet at least 75% of nutritional needs. 2. Wt stability, skin to remain intact, labs to approach WNL.
--- NOTE | 2017-12-20 14:30 | General Progress Note ---
Subjective - Review of Systems Service Date: 12/20/17 Subjective: still agitated, paranoid Objective - Results Result Diagrams: 12/14/17 07:20 12/14/17 07:20 Recent Labs: Laboratory Last Values WBC 9.5 Th/cmm (4.8-10.8) 12/14/17 07:20 RBC 3.54 Mil/cmm (3.80-5.20) L 12/14/17 07:20 Hgb 11.2 gm/dL (12-16) L 12/14/17 07:20 Hct 33.9 % (41.0-60) L 12/14/17 07:20 MCV 96.0 fl (81-100) 12/14/17 07:20 MCH 31.6 pg (27.0-31.0) H 12/14/17 07:20 MCHC Differential 33.0 pg (28.0-36.0) 12/14/17 07:20 RDW 12.3 % (11.5-20.0) 12/14/17 07:20 Plt Count 191 Th/cmm (150-400) 12/14/17 07:20 MPV 9.5 fl 12/14/17 07:20 Neutrophils % 66.8 % (40.0-80.0) 12/14/17 07:20 Band Neutrophils % 1 % (0-10) 12/09/17 20:17 Lymphocytes % 25.1 % (20.0-50.0) 12/14/17 07:20 Monocytes % 5.6 % (2.0-10.0) 12/14/17 07:20 Eosinophils % 2.0 % (0.0-5.0) 12/14/17 07:20 Basophils % 0.5 % (0.0-2.0) 12/14/17 07:20 Neutrophils (Manual) 56 % (40-80) 12/09/17 20:17 Lymphocytes 35 % (20-50) 12/09/17 20:17 Monocytes 3 % (2-10) 12/09/17 20:17 Eosinophils 5 % (0-5) 12/09/17 20:17 Basophils 0 % (0-3) 12/09/17 20:17 Sodium 141 mEq/L (136-145) 12/14/17 07:20 Potassium 5.1 mEq/L (3.5-5.1) 12/14/17 07:20 Chloride 107 mEq/L (98-107) 12/14/17 07:20 Carbon Dioxide 29.2 mEq/L (21.0-31.0) 12/14/17 07:20 Anion Gap 9.9 (7.0-16.0) 12/14/17 07:20 BUN 43 mg/dL (7-25) H 12/14/17 07:20 Creatinine 2.5 mg/dL (0.6-1.2) H 12/14/17 07:20 Est GFR ( Amer) 24.5 ml/min (>90) 12/14/17 07:20 Est GFR (Non-Af Amer) 20.2 ml/min 12/14/17 07:20 BUN/Creatinine Ratio 17.2 12/14/17 07:20 Glucose 94 mg/dL (70-105) 12/14/17 07:20 Calcium 10.7 mg/dL (8.6-10.3) H 12/14/17 07:20 Total Bilirubin 0.4 mg/dL (0.3-1.0) 12/14/17 07:20 AST 12 U/L (13-39) L 12/14/17 07:20 ALT 7 U/L (7-52) 12/14/17 07:20 Alkaline Phosphatase 43 U/L (34-104) 12/14/17 07:20 Total Protein 6.4 gm/dL (6.0-8.3) 12/14/17 07:20 Albumin 3.5 gm/dL (3.7-5.3) L 12/14/17 07:20 Globulin 2.9 gm/dL 12/14/17 07:20 Albumin/Globulin Ratio 1.2 (1.0-1.8) 12/14/17 07:20 TSH 1.71 uIU/ml (0.34-5.60) 12/09/17 20:17 Urine Source RANDOM 12/09/17 20:30 Urine Color YELLOW 12/09/17 20:30 Urine Clarity SLIGHT CLOUDY (CLEAR) H 12/09/17 20:30 Urine pH 7.5 (4.6 - 8.0) 12/09/17 20:30 Ur Specific [place] 1.010 (1.005-1.030) 12/09/17 20:30 Urine Protein 100 mg/dL (NEGATIVE) H 12/09/17 20:30 Urine Glucose (UA) NEGATIVE mg/dL (NEGATIVE) 12/09/17 20:30 Urine Ketones NEGATIVE mg/dL (NEGATIVE) 12/09/17 20:30 Urine Blood NEGATIVE (NEGATIVE) 12/09/17 20:30 Urine Nitrate NEGATIVE (NEGATIVE) 12/09/17 20:30 Urine Bilirubin NEGATIVE (NEGATIVE) 12/09/17 20:30 Urine Urobilinogen 0.2 E.U./dL (0.2 - 1.0) 12/09/17 20:30 Ur Leukocyte Esterase LARGE (NEGATIVE) H 12/09/17 20:30 Urine RBC 2-5 /hpf (0-5) 12/09/17 20:30 Urine WBC 10-25 /hpf (0-5) H 12/09/17 20:30 Ur Epithelial Cells OCCASIONAL /lpf (FEW) 12/09/17 20:30 Urine Bacteria FEW /hpf (NONE SEEN) 12/09/17 20:30 - Physical Exam Vitals and I&O: Vital Signs Temp 98.1 F 12/20/17 06:41 Pulse 72 12/20/17 06:41 Resp 19 12/20/17 06:41 BP 147/71 12/20/17 06:41 Pulse Ox 97 12/20/17 06:41 Intake & Output 12/19/17 12/20/17 12/20/17 18:59 06:59 18:59 Intake Total 950 240 Output Total 1 Balance 950 239 Intake: Oral 950 240 Output: Stool 1 Other: # Voids 4 3 # Bowel Movements 1 1 Active Medications: Current Medications Acetaminophen (Tylenol) 650 mg PO Q4HR PRN PRN Reason: Mild Pain / Temp above 100 Stop: 02/07/18 23:32 Cyanocobalamin (Vitamin B12) 100 mcg PO DAILY [facility] Stop: 02/08/18 08:59 Last Admin: 12/20/17 08:27 Dose: 100 mcg Docusate Sodium (Colace) 100 mg PO DAILY [facility] Stop: 02/08/18 08:59 Last Admin: 12/20/17 08:27 Dose: 100 mg Lactobacillus Rhamnosus (Culturelle 15b) 1 each PO DAILY [facility] Stop: 12/25/17 08:59 Last Admin: 12/20/17 08:27 Dose: 1 each Levothyroxine Sodium (Synthroid) 0.05 mg PO QDAC [facility] Stop: 02/08/18 07:29 Last Admin: 12/20/17 06:44 Dose: 0.05 mg Lorazepam (Ativan) 0.5 mg PO Q4HR PRN; Protocol PRN Reason: Anxiety Stop: 01/08/18 23:32 Last Admin: 12/17/17 20:44 Dose: 0.5 mg Magnesium Hydroxide (Milk Of Magnesia) 30 ml PO DAILY PRN PRN Reason: Constipation Stop: 02/07/18 23:45 Megestrol Acetate (Megace) 400 mg PO DAILY [facility] Stop: 02/08/18 08:59 Last Admin: 12/20/17 08:27 Dose: 400 mg Miscellaneous (Probiotic Screen) 1 ea MC PRN PRN PRN Reason: PROTOCOL Stop: 02/13/18 11:59 Quetiapine Fumarate (Seroquel) 50 mg PO BID [facility] PRN Reason: Protocol Stop: 02/15/18 16:59 Last Admin: 12/20/17 08:27 Dose: 50 mg Senna (Senna) 17.2 mg PO HS [facility] Stop: 02/08/18 20:59 Last Admin: 12/19/17 20:12 Dose: 17.2 mg Vitamin B Complex/Vit C/Folic Acid (Vitamin B Complex W/Vitamin C) 1 tab PO DAILY [facility] Stop: 02/08/18 08:59 Last Admin: 12/20/17 08:27 Dose: 1 tab Zolpidem Tartrate (Ambien) 5 mg PO HS PRN PRN Reason: Insomnia Stop: 02/07/18 23:32 Last Admin: 12/18/17 20:49 Dose: 5 mg General: Alert, No acute distress HEENT: Atraumatic Neck: Supple, +2 carotid pulse wo bruit Cardiovascular: Regular rate, Normal S1, Normal S2 Lungs: Clear to auscultation Abdomen: Bowel sounds, Soft Extremities: Other (No edema) Neurological: Sensation intact Skin: no Rash Psych/Mental Status: Other (Confused, not oriented, agitated) - Procedures Procedures: Procedures Procedure Code Date OTHER GROUP THERAPY 94.44 10/14/10 RECREATIONAL THERAPY 93.81 10/14/10 Assessment/Plan - Assessment Assessment: CKD Acute decomp of Psychosis CAD Hypothyroid - Plan Plan: Current Medications Acetaminophen (Tylenol) 650 mg PO Q4HR PRN PRN Reason: Mild Pain / Temp above 100 Stop: 02/07/18 23:32 Cyanocobalamin (Vitamin B12) 100 mcg PO DAILY AYDEE Stop: 02/08/18 08:59 Last Admin: 12/12/17 08:39 Dose: 100 mcg Docusate Sodium (Colace) 100 mg PO DAILY AYDEE Stop: 02/08/18 08:59 Last Admin: 12/12/17 08:40 Dose: 100 mg Levothyroxine Sodium (Synthroid) 0.05 mg PO QDAC AYDEE Stop: 02/08/18 07:29 Last Admin: 12/12/17 06:32 Dose: 0.05 mg Lorazepam (Ativan) 0.5 mg PO Q4HR PRN; Protocol PRN Reason: Anxiety Stop: 01/08/18 23:32 Magnesium Hydroxide (Milk Of Magnesia) 30 ml PO DAILY PRN PRN Reason: Constipation Stop: 02/07/18 23:45 Megestrol Acetate (Megace) 400 mg PO DAILY AYDEE Stop: 02/08/18 08:59 Last Admin: 12/12/17 08:40 Dose: 400 mg Quetiapine Fumarate (Seroquel) 12.5 mg PO BID AYDEE PRN Reason: Protocol Stop: 02/08/18 16:59 Last Admin: 12/12/17 08:40 Dose: 12.5 mg Senna (Senna) 17.2 mg PO HS AYDEE Stop: 02/08/18 20:59 Last Admin: 12/11/17 21:41 Dose: 17.2 mg Vitamin B Complex/Vit C/Folic Acid (Vitamin B Complex W/Vitamin C) 1 tab PO DAILY AYDEE Stop: 02/08/18 08:59 Last Admin: 12/12/17 08:40 Dose: 1 tab Zolpidem Tartrate (Ambien) 5 mg PO HS PRN PRN Reason: Insomnia Stop: 02/07/18 23:32 Lab - Result Diagrams 12/14/17 07:20 12/14/17 07:20 kidney fnc stable @ 2.5 which is her baseline encourage po intake continue psych meds Nutritional Asmnt/Malnutr-PDOC - Dietary Evaluation Malnutrition Findings (Please click <Entered> for more info): Nutritional Asmnt/Malnutrition Start: 12/14/17 16: 58 Text: Status: Complete Freq: Document 12/14/17 16:58 ISMA (Rec: 12/14/17 17:05 [email or web address]) Nutritional Asmnt/Malnutrition Patient General Information Nutritional Screening Moderate Risk Diagnosis psychosis NOS Pertinent Medical Hx/Surgical Hx CAD, dementia, schizophrenia, weakness, chronic renal insuff Subjective Information Pt seen sleeping at time of visit. Per EMR, PO intake 75%. Current Diet Order/ Nutrition Support mech soft chopped, santosh, high protein nourishment TID Pertinent Medications vit B12, colace, synthroid, megace, seroquel, senna, vit B complex, with vit C Pertinent Labs 12/14BUN 43, Cr 2.5, glucose 94 , ca 10.7 Nutritional Hx/Data Height 1.6 m Height (Calculated Centimeters) 160.0 Current Weight (lbs) 45.359 kg Weight (Calculated Kilograms) 45.4 Weight (Calculated Grams) 71524.2 [place] Body Weight 115 Body Mass Index (BMI) 17.6 Weight Status Underweight GI Symptoms GI Symptoms None Last BM 12/13 x 2 Difficult in: None Skin Integrity/Comment: intact Nutritional Problem No current Nutrition Prob Problem N/A Intervention/Recommendation Comments 1. Continue with current diet as ordered. 2. Monitor PO intake, wt, labs and skin integrity 3. F/U as low risk in 7 days, 12/21 Expected Outcomes/Goals Expected Outcomes/Goals 1. PO intake to meet at least 75% of nutritional needs. 2. Wt stability, skin to remain intact, labs to approach WNL.
--- NOTE | 2017-12-20 22:49 | Progress Notes ---
DATE: 12/20/2017 SUBJECTIVE: Case was discussed with staff of the patient and reviewed records. The patient continues to be in the bed most of the time, isolating herself. Continues to be unpredictable, impulsive, needing redirection. Continues to have poor insight. Continues to be gravely disabled. She is sleeping better, eating better. No side effects to the medication, no sedation, no nausea, no extrapyramidal symptoms. PLAN OF CARE: We will continue to work the patient in group therapy, milieu therapy, adjust medication as needed. JOB# [id number]
[2017-12-21] MEDS: Levothyroxine 0.05 Mg Tab PO SCH (06:48)
[2017-12-21] MEDS: Vitamin B Complex w/Vitamin C Tab PO SCH (08:25)
[2017-12-21] MEDS: Lactobacillus Rhamnosus GG 15 Billion CFU CAP.SPRINK PO SCH (08:25)
--- NOTE | 2017-12-21 13:35 | General Progress Note ---
Subjective - Review of Systems Service Date: 12/21/17 Subjective: Incoherent. Objective - Results Result Diagrams: 12/14/17 07:20 12/14/17 07:20 Recent Labs: Laboratory Last Values WBC 9.5 Th/cmm (4.8-10.8) 12/14/17 07:20 RBC 3.54 Mil/cmm (3.80-5.20) L 12/14/17 07:20 Hgb 11.2 gm/dL (12-16) L 12/14/17 07:20 Hct 33.9 % (41.0-60) L 12/14/17 07:20 MCV 96.0 fl (81-100) 12/14/17 07:20 MCH 31.6 pg (27.0-31.0) H 12/14/17 07:20 MCHC Differential 33.0 pg (28.0-36.0) 12/14/17 07:20 RDW 12.3 % (11.5-20.0) 12/14/17 07:20 Plt Count 191 Th/cmm (150-400) 12/14/17 07:20 MPV 9.5 fl 12/14/17 07:20 Neutrophils % 66.8 % (40.0-80.0) 12/14/17 07:20 Band Neutrophils % 1 % (0-10) 12/09/17 20:17 Lymphocytes % 25.1 % (20.0-50.0) 12/14/17 07:20 Monocytes % 5.6 % (2.0-10.0) 12/14/17 07:20 Eosinophils % 2.0 % (0.0-5.0) 12/14/17 07:20 Basophils % 0.5 % (0.0-2.0) 12/14/17 07:20 Neutrophils (Manual) 56 % (40-80) 12/09/17 20:17 Lymphocytes 35 % (20-50) 12/09/17 20:17 Monocytes 3 % (2-10) 12/09/17 20:17 Eosinophils 5 % (0-5) 12/09/17 20:17 Basophils 0 % (0-3) 12/09/17 20:17 Sodium 141 mEq/L (136-145) 12/14/17 07:20 Potassium 5.1 mEq/L (3.5-5.1) 12/14/17 07:20 Chloride 107 mEq/L (98-107) 12/14/17 07:20 Carbon Dioxide 29.2 mEq/L (21.0-31.0) 12/14/17 07:20 Anion Gap 9.9 (7.0-16.0) 12/14/17 07:20 BUN 43 mg/dL (7-25) H 12/14/17 07:20 Creatinine 2.5 mg/dL (0.6-1.2) H 12/14/17 07:20 Est GFR ( Amer) 24.5 ml/min (>90) 12/14/17 07:20 Est GFR (Non-Af Amer) 20.2 ml/min 12/14/17 07:20 BUN/Creatinine Ratio 17.2 12/14/17 07:20 Glucose 94 mg/dL (70-105) 12/14/17 07:20 Calcium 10.7 mg/dL (8.6-10.3) H 12/14/17 07:20 Total Bilirubin 0.4 mg/dL (0.3-1.0) 12/14/17 07:20 AST 12 U/L (13-39) L 12/14/17 07:20 ALT 7 U/L (7-52) 12/14/17 07:20 Alkaline Phosphatase 43 U/L (34-104) 12/14/17 07:20 Total Protein 6.4 gm/dL (6.0-8.3) 12/14/17 07:20 Albumin 3.5 gm/dL (3.7-5.3) L 12/14/17 07:20 Globulin 2.9 gm/dL 12/14/17 07:20 Albumin/Globulin Ratio 1.2 (1.0-1.8) 12/14/17 07:20 TSH 1.71 uIU/ml (0.34-5.60) 12/09/17 20:17 Urine Source RANDOM 12/09/17 20:30 Urine Color YELLOW 12/09/17 20:30 Urine Clarity SLIGHT CLOUDY (CLEAR) H 12/09/17 20:30 Urine pH 7.5 (4.6 - 8.0) 12/09/17 20:30 Ur Specific [place] 1.010 (1.005-1.030) 12/09/17 20:30 Urine Protein 100 mg/dL (NEGATIVE) H 12/09/17 20:30 Urine Glucose (UA) NEGATIVE mg/dL (NEGATIVE) 12/09/17 20:30 Urine Ketones NEGATIVE mg/dL (NEGATIVE) 12/09/17 20:30 Urine Blood NEGATIVE (NEGATIVE) 12/09/17 20:30 Urine Nitrate NEGATIVE (NEGATIVE) 12/09/17 20:30 Urine Bilirubin NEGATIVE (NEGATIVE) 12/09/17 20:30 Urine Urobilinogen 0.2 E.U./dL (0.2 - 1.0) 12/09/17 20:30 Ur Leukocyte Esterase LARGE (NEGATIVE) H 12/09/17 20:30 Urine RBC 2-5 /hpf (0-5) 12/09/17 20:30 Urine WBC 10-25 /hpf (0-5) H 12/09/17 20:30 Ur Epithelial Cells OCCASIONAL /lpf (FEW) 12/09/17 20:30 Urine Bacteria FEW /hpf (NONE SEEN) 12/09/17 20:30 - Physical Exam Vitals and I&O: Vital Signs Temp 99.7 F 12/21/17 06:31 Pulse 80 12/21/17 06:31 Resp 20 12/21/17 06:31 BP 141/70 12/21/17 06:31 Pulse Ox 96 12/21/17 06:31 Intake & Output 12/20/17 12/21/17 12/21/17 18:59 06:59 18:59 Intake Total 950 300 Balance 950 300 Intake: Oral 950 300 Other: # Voids 4 3 # Bowel Movements 1 0 Stool Characteristics Soft Active Medications: Current Medications Acetaminophen (Tylenol) 650 mg PO Q4HR PRN PRN Reason: Mild Pain / Temp above 100 Stop: 02/07/18 23:32 Cyanocobalamin (Vitamin B12) 100 mcg PO DAILY [facility] Stop: 02/08/18 08:59 Last Admin: 12/21/17 08:25 Dose: 100 mcg Docusate Sodium (Colace) 100 mg PO DAILY [facility] Stop: 02/08/18 08:59 Last Admin: 12/21/17 08:25 Dose: 100 mg Lactobacillus Rhamnosus (Culturelle 15b) 1 each PO DAILY [facility] Stop: 12/25/17 08:59 Last Admin: 12/21/17 08:25 Dose: 1 each Levothyroxine Sodium (Synthroid) 0.05 mg PO QDAC [facility]E Stop: 02/08/18 07:29 Last Admin: 12/21/17 06:48 Dose: 0.05 mg Lorazepam (Ativan) 0.5 mg PO Q4HR PRN; Protocol PRN Reason: Anxiety Stop: 01/08/18 23:32 Last Admin: 12/17/17 20:44 Dose: 0.5 mg Magnesium Hydroxide (Milk Of Magnesia) 30 ml PO DAILY PRN PRN Reason: Constipation Stop: 02/07/18 23:45 Megestrol Acetate (Megace) 400 mg PO DAILY [facility] Stop: 02/08/18 08:59 Last Admin: 12/21/17 08:25 Dose: 400 mg Miscellaneous (Probiotic Screen) 1 ea MC PRN PRN PRN Reason: PROTOCOL Stop: 02/13/18 11:59 Quetiapine Fumarate (Seroquel) 50 mg PO BID AYDEE PRN Reason: Protocol Stop: 02/15/18 16:59 Last Admin: 12/21/17 08:25 Dose: 50 mg Senna (Senna) 17.2 mg PO HS AYDEE Stop: 02/08/18 20:59 Last Admin: 12/20/17 20:17 Dose: 17.2 mg Vitamin B Complex/Vit C/Folic Acid (Vitamin B Complex W/Vitamin C) 1 tab PO DAILY [facility] Stop: 02/08/18 08:59 Last Admin: 12/21/17 08:25 Dose: 1 tab Zolpidem Tartrate (Ambien) 5 mg PO HS PRN PRN Reason: Insomnia Stop: 02/07/18 23:32 Last Admin: 12/18/17 20:49 Dose: 5 mg General: Alert, No acute distress HEENT: Atraumatic Neck: Supple, +2 carotid pulse wo bruit Cardiovascular: Regular rate, Normal S1, Normal S2 Lungs: Clear to auscultation Abdomen: Bowel sounds, Soft Extremities: Other (No edema) Neurological: Sensation intact Skin: no Rash Psych/Mental Status: Other (Confused, not oriented, agitated) - Procedures Procedures: Procedures Procedure Code Date OTHER GROUP THERAPY 94.44 10/14/10 RECREATIONAL THERAPY 93.81 10/14/10 Assessment/Plan - Assessment Assessment: Patient is awake, alert, calm in no acute distress. Dx: increased in agitation, UTI, Hypothyroidism, CKD, Polyarthritis. - Plan Plan: Patient is under Psychiatric care. She is continue with SNF meds. Ceftriaxone is added. Creatinine still high. follow by nephro. Will continue to monitor Nutritional Asmnt/Malnutr-PDOC - Dietary Evaluation Malnutrition Findings (Please click <Entered> for more info): Nutritional Asmnt/Malnutrition Start: 12/14/17 16: 58 Text: Status: Complete Freq: Document 12/14/17 16:58 [facility] (Rec: 12/14/17 17:05 [email or web address] Nutritional Asmnt/Malnutrition Patient General Information Nutritional Screening Moderate Risk Diagnosis psychosis NOS Pertinent Medical Hx/Surgical Hx CAD, dementia, schizophrenia, weakness, chronic renal insuff Subjective Information Pt seen sleeping at time of visit. Per EMR, PO intake 75%. Current Diet Order/ Nutrition Support mech soft chopped, santosh, high protein nourishment TID Pertinent Medications vit B12, colace, synthroid, megace, seroquel, senna, vit B complex, with vit C Pertinent Labs 12/14BUN 43, Cr 2.5, glucose 94 , ca 10.7 Nutritional Hx/Data Height 1.6 m Height (Calculated Centimeters) 160.0 Current Weight (lbs) 45.359 kg Weight (Calculated Kilograms) 45.4 Weight (Calculated Grams) 95927.2 [place] Body Weight 115 Body Mass Index (BMI) 17.6 Weight Status Underweight GI Symptoms GI Symptoms None Last BM 12/13 x 2 Difficult in: None Skin Integrity/Comment: intact Nutritional Problem No current Nutrition Prob Problem N/A Intervention/Recommendation Comments 1. Continue with current diet as ordered. 2. Monitor PO intake, wt, labs and skin integrity 3. F/U as low risk in 7 days, 12/21 Expected Outcomes/Goals Expected Outcomes/Goals 1. PO intake to meet at least 75% of nutritional needs. 2. Wt stability, skin to remain intact, labs to approach WNL.
--- NOTE | 2017-12-21 13:39 | General Progress Note ---
Subjective - Review of Systems Service Date: 12/21/17 Subjective: still agitated, paranoid Objective - Results Result Diagrams: 12/14/17 07:20 12/14/17 07:20 Recent Labs: Laboratory Last Values WBC 9.5 Th/cmm (4.8-10.8) 12/14/17 07:20 RBC 3.54 Mil/cmm (3.80-5.20) L 12/14/17 07:20 Hgb 11.2 gm/dL (12-16) L 12/14/17 07:20 Hct 33.9 % (41.0-60) L 12/14/17 07:20 MCV 96.0 fl (81-100) 12/14/17 07:20 MCH 31.6 pg (27.0-31.0) H 12/14/17 07:20 MCHC Differential 33.0 pg (28.0-36.0) 12/14/17 07:20 RDW 12.3 % (11.5-20.0) 12/14/17 07:20 Plt Count 191 Th/cmm (150-400) 12/14/17 07:20 MPV 9.5 fl 12/14/17 07:20 Neutrophils % 66.8 % (40.0-80.0) 12/14/17 07:20 Band Neutrophils % 1 % (0-10) 12/09/17 20:17 Lymphocytes % 25.1 % (20.0-50.0) 12/14/17 07:20 Monocytes % 5.6 % (2.0-10.0) 12/14/17 07:20 Eosinophils % 2.0 % (0.0-5.0) 12/14/17 07:20 Basophils % 0.5 % (0.0-2.0) 12/14/17 07:20 Neutrophils (Manual) 56 % (40-80) 12/09/17 20:17 Lymphocytes 35 % (20-50) 12/09/17 20:17 Monocytes 3 % (2-10) 12/09/17 20:17 Eosinophils 5 % (0-5) 12/09/17 20:17 Basophils 0 % (0-3) 12/09/17 20:17 Sodium 141 mEq/L (136-145) 12/14/17 07:20 Potassium 5.1 mEq/L (3.5-5.1) 12/14/17 07:20 Chloride 107 mEq/L (98-107) 12/14/17 07:20 Carbon Dioxide 29.2 mEq/L (21.0-31.0) 12/14/17 07:20 Anion Gap 9.9 (7.0-16.0) 12/14/17 07:20 BUN 43 mg/dL (7-25) H 12/14/17 07:20 Creatinine 2.5 mg/dL (0.6-1.2) H 12/14/17 07:20 Est GFR ( Amer) 24.5 ml/min (>90) 12/14/17 07:20 Est GFR (Non-Af Amer) 20.2 ml/min 12/14/17 07:20 BUN/Creatinine Ratio 17.2 12/14/17 07:20 Glucose 94 mg/dL (70-105) 12/14/17 07:20 Calcium 10.7 mg/dL (8.6-10.3) H 12/14/17 07:20 Total Bilirubin 0.4 mg/dL (0.3-1.0) 12/14/17 07:20 AST 12 U/L (13-39) L 12/14/17 07:20 ALT 7 U/L (7-52) 12/14/17 07:20 Alkaline Phosphatase 43 U/L (34-104) 12/14/17 07:20 Total Protein 6.4 gm/dL (6.0-8.3) 12/14/17 07:20 Albumin 3.5 gm/dL (3.7-5.3) L 12/14/17 07:20 Globulin 2.9 gm/dL 12/14/17 07:20 Albumin/Globulin Ratio 1.2 (1.0-1.8) 12/14/17 07:20 TSH 1.71 uIU/ml (0.34-5.60) 12/09/17 20:17 Urine Source RANDOM 12/09/17 20:30 Urine Color YELLOW 12/09/17 20:30 Urine Clarity SLIGHT CLOUDY (CLEAR) H 12/09/17 20:30 Urine pH 7.5 (4.6 - 8.0) 12/09/17 20:30 Ur Specific [place] 1.010 (1.005-1.030) 12/09/17 20:30 Urine Protein 100 mg/dL (NEGATIVE) H 12/09/17 20:30 Urine Glucose (UA) NEGATIVE mg/dL (NEGATIVE) 12/09/17 20:30 Urine Ketones NEGATIVE mg/dL (NEGATIVE) 12/09/17 20:30 Urine Blood NEGATIVE (NEGATIVE) 12/09/17 20:30 Urine Nitrate NEGATIVE (NEGATIVE) 12/09/17 20:30 Urine Bilirubin NEGATIVE (NEGATIVE) 12/09/17 20:30 Urine Urobilinogen 0.2 E.U./dL (0.2 - 1.0) 12/09/17 20:30 Ur Leukocyte Esterase LARGE (NEGATIVE) H 12/09/17 20:30 Urine RBC 2-5 /hpf (0-5) 12/09/17 20:30 Urine WBC 10-25 /hpf (0-5) H 12/09/17 20:30 Ur Epithelial Cells OCCASIONAL /lpf (FEW) 12/09/17 20:30 Urine Bacteria FEW /hpf (NONE SEEN) 12/09/17 20:30 - Physical Exam Vitals and I&O: Vital Signs Temp 99.7 F 12/21/17 06:31 Pulse 80 12/21/17 06:31 Resp 20 12/21/17 06:31 BP 141/70 12/21/17 06:31 Pulse Ox 96 12/21/17 06:31 Intake & Output 12/20/17 12/21/17 12/21/17 18:59 06:59 18:59 Intake Total 950 300 Balance 950 300 Intake: Oral 950 300 Other: # Voids 4 3 # Bowel Movements 1 0 Stool Characteristics Soft Active Medications: Current Medications Acetaminophen (Tylenol) 650 mg PO Q4HR PRN PRN Reason: Mild Pain / Temp above 100 Stop: 02/07/18 23:32 Cyanocobalamin (Vitamin B12) 100 mcg PO DAILY [facility] Stop: 02/08/18 08:59 Last Admin: 12/21/17 08:25 Dose: 100 mcg Docusate Sodium (Colace) 100 mg PO DAILY [facility] Stop: 02/08/18 08:59 Last Admin: 12/21/17 08:25 Dose: 100 mg Lactobacillus Rhamnosus (Culturelle 15b) 1 each PO DAILY [facility] Stop: 12/25/17 08:59 Last Admin: 12/21/17 08:25 Dose: 1 each Levothyroxine Sodium (Synthroid) 0.05 mg PO QDAC [facility] Stop: 02/08/18 07:29 Last Admin: 12/21/17 06:48 Dose: 0.05 mg Lorazepam (Ativan) 0.5 mg PO Q4HR PRN; Protocol PRN Reason: Anxiety Stop: 01/08/18 23:32 Last Admin: 12/17/17 20:44 Dose: 0.5 mg Magnesium Hydroxide (Milk Of Magnesia) 30 ml PO DAILY PRN PRN Reason: Constipation Stop: 02/07/18 23:45 Megestrol Acetate (Megace) 400 mg PO DAILY [facility] Stop: 02/08/18 08:59 Last Admin: 12/21/17 08:25 Dose: 400 mg Miscellaneous (Probiotic Screen) 1 ea MC PRN PRN PRN Reason: PROTOCOL Stop: 02/13/18 11:59 Quetiapine Fumarate (Seroquel) 50 mg PO BID AYDEE PRN Reason: Protocol Stop: 02/15/18 16:59 Last Admin: 12/21/17 08:25 Dose: 50 mg Senna (Senna) 17.2 mg PO HS AYDEE Stop: 02/08/18 20:59 Last Admin: 12/20/17 20:17 Dose: 17.2 mg Vitamin B Complex/Vit C/Folic Acid (Vitamin B Complex W/Vitamin C) 1 tab PO DAILY [facility] Stop: 02/08/18 08:59 Last Admin: 12/21/17 08:25 Dose: 1 tab Zolpidem Tartrate (Ambien) 5 mg PO HS PRN PRN Reason: Insomnia Stop: 02/07/18 23:32 Last Admin: 12/18/17 20:49 Dose: 5 mg General: Alert, No acute distress HEENT: Atraumatic Neck: Supple, +2 carotid pulse wo bruit Cardiovascular: Regular rate, Normal S1, Normal S2 Lungs: Clear to auscultation Abdomen: Bowel sounds, Soft Extremities: Other (No edema) Neurological: Sensation intact Skin: no Rash Psych/Mental Status: Other (Confused, not oriented, agitated) - Procedures Procedures: Procedures Procedure Code Date OTHER GROUP THERAPY 94.44 10/14/10 RECREATIONAL THERAPY 93.81 10/14/10 Assessment/Plan - Assessment Assessment: CKD Acute decomp of Psychosis CAD Hypothyroid - Plan Plan: Current Medications Acetaminophen (Tylenol) 650 mg PO Q4HR PRN PRN Reason: Mild Pain / Temp above 100 Stop: 02/07/18 23:32 Cyanocobalamin (Vitamin B12) 100 mcg PO DAILY [facility] Stop: 02/08/18 08:59 Last Admin: 12/12/17 08:39 Dose: 100 mcg Docusate Sodium (Colace) 100 mg PO DAILY [facility] Stop: 02/08/18 08:59 Last Admin: 12/12/17 08:40 Dose: 100 mg Levothyroxine Sodium (Synthroid) 0.05 mg PO QDAC AYDEE Stop: 02/08/18 07:29 Last Admin: 12/12/17 06:32 Dose: 0.05 mg Lorazepam (Ativan) 0.5 mg PO Q4HR PRN; Protocol PRN Reason: Anxiety Stop: 01/08/18 23:32 Magnesium Hydroxide (Milk Of Magnesia) 30 ml PO DAILY PRN PRN Reason: Constipation Stop: 02/07/18 23:45 Megestrol Acetate (Megace) 400 mg PO DAILY [facility] Stop: 02/08/18 08:59 Last Admin: 12/12/17 08:40 Dose: 400 mg Quetiapine Fumarate (Seroquel) 12.5 mg PO BID AYDEE PRN Reason: Protocol Stop: 02/08/18 16:59 Last Admin: 12/12/17 08:40 Dose: 12.5 mg Senna (Senna) 17.2 mg PO HS [facility] Stop: 02/08/18 20:59 Last Admin: 12/11/17 21:41 Dose: 17.2 mg Vitamin B Complex/Vit C/Folic Acid (Vitamin B Complex W/Vitamin C) 1 tab PO DAILY [facility] Stop: 02/08/18 08:59 Last Admin: 12/12/17 08:40 Dose: 1 tab Zolpidem Tartrate (Ambien) 5 mg PO HS PRN PRN Reason: Insomnia Stop: 02/07/18 23:32 Lab - Result Diagrams 12/14/17 07:20 12/14/17 07:20 kidney fnc stable @ 2.5 which is her baseline encourage po intake continue psych meds Nutritional Asmnt/Malnutr-PDOC - Dietary Evaluation Malnutrition Findings (Please click <Entered> for more info): Nutritional Asmnt/Malnutrition Start: 12/14/17 16: 58 Text: Status: Complete Freq: Document 12/14/17 16:58 [facility] (Rec: 12/14/17 17:05 [email or web address]) Nutritional Asmnt/Malnutrition Patient General Information Nutritional Screening Moderate Risk Diagnosis psychosis NOS Pertinent Medical Hx/Surgical Hx CAD, dementia, schizophrenia, weakness, chronic renal insuff Subjective Information Pt seen sleeping at time of visit. Per EMR, PO intake 75%. Current Diet Order/ Nutrition Support mech soft chopped, santosh, high protein nourishment TID Pertinent Medications vit B12, colace, synthroid, megace, seroquel, senna, vit B complex, with vit C Pertinent Labs 12/14BUN 43, Cr 2.5, glucose 94 , ca 10.7 Nutritional Hx/Data Height 1.6 m Height (Calculated Centimeters) 160.0 Current Weight (lbs) 45.359 kg Weight (Calculated Kilograms) 45.4 Weight (Calculated Grams) 71340.2 [place] Body Weight 115 Body Mass Index (BMI) 17.6 Weight Status Underweight GI Symptoms GI Symptoms None Last BM 12/13 x 2 Difficult in: None Skin Integrity/Comment: intact Nutritional Problem No current Nutrition Prob Problem N/A Intervention/Recommendation Comments 1. Continue with current diet as ordered. 2. Monitor PO intake, wt, labs and skin integrity 3. F/U as low risk in 7 days, 12/21 Expected Outcomes/Goals Expected Outcomes/Goals 1. PO intake to meet at least 75% of nutritional needs. 2. Wt stability, skin to remain intact, labs to approach WNL.
--- NOTE | 2017-12-21 22:12 | Progress Notes ---
DATE: Chart reviewed and the patient interviewed. Also discussed the patient's condition with the staff and reviewed records and labs. The patient remains in angry mood and she still does not answer any of my questions coherently and she still seems to be angry while I was trying to talk to her. On the other hand, the patient seems to have better eye contact and she is trying to answer my questions. She still has episodes of cursing and verbally abusive to staff and also mumbling with words that are difficult to understand. Otherwise, the patient is compliant with taking her medications with no side effects of medications. ASSESSMENT: The patient seems to be less irritable and less agitated. TREATMENT PLAN: Continue to monitor her behavior and her condition closely. Also, continue to work on discharge plans and placement issue. JOB# [id number]
[2017-12-21] MEDS ORDERED: Albuterol Nebulizer 2.5mg/3mL HHN PRN (22:18)
[2017-12-21] MEDS ORDERED: Promethazine DM 6.25/15mg-5mL 5 ML SYR PO PRN (22:19)
[2017-12-22] MEDS: Levothyroxine 0.05 Mg Tab PO SCH (06:42)
--- NOTE | 2017-12-22 08:21 | Diagnostic Imaging Report ---
Portable chest x-ray Time: 0804 hours History: Cough compared to prior exam of 12/09/2017 Allowing for portable technique the heart size is normal. No focal pulmonary parenchymal processes. No hilar or mediastinal abnormalities. COPD changes are noted. Impression: No acute abnormalities.
--- NOTE | 2017-12-22 09:00 | General Progress Note ---
Subjective - Review of Systems Service Date: 12/22/17 Subjective: Incoherent. Objective - Results Result Diagrams: 12/14/17 07:20 12/14/17 07:20 Recent Labs: Laboratory Last Values WBC 9.5 Th/cmm (4.8-10.8) 12/14/17 07:20 RBC 3.54 Mil/cmm (3.80-5.20) L 12/14/17 07:20 Hgb 11.2 gm/dL (12-16) L 12/14/17 07:20 Hct 33.9 % (41.0-60) L 12/14/17 07:20 MCV 96.0 fl (81-100) 12/14/17 07:20 MCH 31.6 pg (27.0-31.0) H 12/14/17 07:20 MCHC Differential 33.0 pg (28.0-36.0) 12/14/17 07:20 RDW 12.3 % (11.5-20.0) 12/14/17 07:20 Plt Count 191 Th/cmm (150-400) 12/14/17 07:20 MPV 9.5 fl 12/14/17 07:20 Neutrophils % 66.8 % (40.0-80.0) 12/14/17 07:20 Band Neutrophils % 1 % (0-10) 12/09/17 20:17 Lymphocytes % 25.1 % (20.0-50.0) 12/14/17 07:20 Monocytes % 5.6 % (2.0-10.0) 12/14/17 07:20 Eosinophils % 2.0 % (0.0-5.0) 12/14/17 07:20 Basophils % 0.5 % (0.0-2.0) 12/14/17 07:20 Neutrophils (Manual) 56 % (40-80) 12/09/17 20:17 Lymphocytes 35 % (20-50) 12/09/17 20:17 Monocytes 3 % (2-10) 12/09/17 20:17 Eosinophils 5 % (0-5) 12/09/17 20:17 Basophils 0 % (0-3) 12/09/17 20:17 Sodium 141 mEq/L (136-145) 12/14/17 07:20 Potassium 5.1 mEq/L (3.5-5.1) 12/14/17 07:20 Chloride 107 mEq/L (98-107) 12/14/17 07:20 Carbon Dioxide 29.2 mEq/L (21.0-31.0) 12/14/17 07:20 Anion Gap 9.9 (7.0-16.0) 12/14/17 07:20 BUN 43 mg/dL (7-25) H 12/14/17 07:20 Creatinine 2.5 mg/dL (0.6-1.2) H 12/14/17 07:20 Est GFR ( Amer) 24.5 ml/min (>90) 12/14/17 07:20 Est GFR (Non-Af Amer) 20.2 ml/min 12/14/17 07:20 BUN/Creatinine Ratio 17.2 12/14/17 07:20 Glucose 94 mg/dL (70-105) 12/14/17 07:20 Calcium 10.7 mg/dL (8.6-10.3) H 12/14/17 07:20 Total Bilirubin 0.4 mg/dL (0.3-1.0) 12/14/17 07:20 AST 12 U/L (13-39) L 12/14/17 07:20 ALT 7 U/L (7-52) 12/14/17 07:20 Alkaline Phosphatase 43 U/L (34-104) 12/14/17 07:20 Total Protein 6.4 gm/dL (6.0-8.3) 12/14/17 07:20 Albumin 3.5 gm/dL (3.7-5.3) L 12/14/17 07:20 Globulin 2.9 gm/dL 12/14/17 07:20 Albumin/Globulin Ratio 1.2 (1.0-1.8) 12/14/17 07:20 TSH 1.71 uIU/ml (0.34-5.60) 12/09/17 20:17 Urine Source RANDOM 12/09/17 20:30 Urine Color YELLOW 12/09/17 20:30 Urine Clarity SLIGHT CLOUDY (CLEAR) H 12/09/17 20:30 Urine pH 7.5 (4.6 - 8.0) 12/09/17 20:30 Ur Specific [place] 1.010 (1.005-1.030) 12/09/17 20:30 Urine Protein 100 mg/dL (NEGATIVE) H 12/09/17 20:30 Urine Glucose (UA) NEGATIVE mg/dL (NEGATIVE) 12/09/17 20:30 Urine Ketones NEGATIVE mg/dL (NEGATIVE) 12/09/17 20:30 Urine Blood NEGATIVE (NEGATIVE) 12/09/17 20:30 Urine Nitrate NEGATIVE (NEGATIVE) 12/09/17 20:30 Urine Bilirubin NEGATIVE (NEGATIVE) 12/09/17 20:30 Urine Urobilinogen 0.2 E.U./dL (0.2 - 1.0) 12/09/17 20:30 Ur Leukocyte Esterase LARGE (NEGATIVE) H 12/09/17 20:30 Urine RBC 2-5 /hpf (0-5) 12/09/17 20:30 Urine WBC 10-25 /hpf (0-5) H 12/09/17 20:30 Ur Epithelial Cells OCCASIONAL /lpf (FEW) 12/09/17 20:30 Urine Bacteria FEW /hpf (NONE SEEN) 12/09/17 20:30 - Physical Exam Vitals and I&O: Vital Signs Temp 98.2 F 12/22/17 06:39 Pulse 85 12/22/17 06:39 Resp 19 12/22/17 06:39 BP 128/68 12/22/17 06:39 Pulse Ox 97 12/22/17 06:39 Intake & Output 12/21/17 12/22/17 12/22/17 18:59 06:59 18:59 Intake Total 900 120 Balance 900 120 Intake: Oral 900 120 Other: # Voids 3 3 Stool Characteristics Soft Formed Hard Brown Active Medications: Current Medications Acetaminophen (Tylenol) 650 mg PO Q4HR PRN PRN Reason: Mild Pain / Temp above 100 Stop: 02/07/18 23:32 Albuterol Sulfate (Albuterol 2.5mg/3ml Neb Ud) 2.5 mg HHN Q4H PRN PRN Reason: Shortness of Breath Stop: 02/19/18 22:17 Last Admin: 12/21/17 22:53 Dose: 2.5 mg Cyanocobalamin (Vitamin B12) 100 mcg PO DAILY AYDEE Stop: 02/08/18 08:59 Last Admin: 12/21/17 08:25 Dose: 100 mcg Docusate Sodium (Colace) 100 mg PO DAILY AYDEE Stop: 02/08/18 08:59 Last Admin: 12/21/17 08:25 Dose: 100 mg Lactobacillus Rhamnosus (Culturelle 15b) 1 each PO DAILY AYDEE Stop: 12/25/17 08:59 Last Admin: 12/21/17 08:25 Dose: 1 each Levothyroxine Sodium (Synthroid) 0.05 mg PO QDAC AYDEE Stop: 02/08/18 07:29 Last Admin: 12/22/17 06:42 Dose: 0.05 mg Lorazepam (Ativan) 0.5 mg PO Q4HR PRN; Protocol PRN Reason: Anxiety Stop: 01/08/18 23:32 Last Admin: 12/21/17 20:20 Dose: 0.5 mg Magnesium Hydroxide (Milk Of Magnesia) 30 ml PO DAILY PRN PRN Reason: Constipation Stop: 02/07/18 23:45 Megestrol Acetate (Megace) 400 mg PO DAILY AYDEE Stop: 02/08/18 08:59 Last Admin: 12/21/17 08:25 Dose: 400 mg Miscellaneous (Probiotic Screen) 1 ea MC PRN PRN PRN Reason: PROTOCOL Stop: 02/13/18 11:59 Promethazine HCl/Dextromethorphan (Phenergan Dm 6.25/15mg-5 Ml) 5 ml PO Q6HR PRN PRN Reason: Cough Stop: 02/19/18 22:18 Quetiapine Fumarate (Seroquel) 50 mg PO BID AYDEE PRN Reason: Protocol Stop: 02/15/18 16:59 Last Admin: 12/21/17 17:59 Dose: 50 mg Senna (Senna) 17.2 mg PO HS YADEE Stop: 02/08/18 20:59 Last Admin: 12/21/17 20:19 Dose: 17.2 mg Vitamin B Complex/Vit C/Folic Acid (Vitamin B Complex W/Vitamin C) 1 tab PO DAILY AYDEE Stop: 02/08/18 08:59 Last Admin: 12/21/17 08:25 Dose: 1 tab Zolpidem Tartrate (Ambien) 5 mg PO HS PRN PRN Reason: Insomnia Stop: 02/07/18 23:32 Last Admin: 12/21/17 20:20 Dose: 5 mg General: Alert, No acute distress HEENT: Atraumatic Neck: Supple, +2 carotid pulse wo bruit Cardiovascular: Regular rate, Normal S1, Normal S2 Lungs: Clear to auscultation Abdomen: Bowel sounds, Soft Extremities: Other (No edema) Neurological: Sensation intact Skin: no Rash Psych/Mental Status: Other (Confused, not oriented, agitated) - Procedures Procedures: Procedures Procedure Code Date OTHER GROUP THERAPY 94.44 10/14/10 RECREATIONAL THERAPY 93.81 10/14/10 Assessment/Plan - Assessment Assessment: Patient is awake, alert, calm in no acute distress. CXR shows no acute abnormalities Dx: increased in agitation, UTI, Hypothyroidism, CKD, Polyarthritis. - Plan Plan: Patient is under Psychiatric care. She is continue with SNF meds. Ceftriaxone is added. Creatinine still high. follow by nephro. Will continue to monitor Nutritional Asmnt/Malnutr-PDOC - Dietary Evaluation Malnutrition Findings (Please click <Entered> for more info): Nutritional Asmnt/Malnutrition Start: 12/14/17 16: 58 Text: Status: Complete Freq: Document 12/14/17 16:58 [facility] (Rec: 12/14/17 17:05 [email or web address]) Nutritional Asmnt/Malnutrition Patient General Information Nutritional Screening Moderate Risk Diagnosis psychosis NOS Pertinent Medical Hx/Surgical Hx CAD, dementia, schizophrenia, weakness, chronic renal insuff Subjective Information Pt seen sleeping at time of visit. Per EMR, PO intake 75%. Current Diet Order/ Nutrition Support mech soft chopped, santosh, high protein nourishment TID Pertinent Medications vit B12, colace, synthroid, megace, seroquel, senna, vit B complex, with vit C Pertinent Labs 12/14BUN 43, Cr 2.5, glucose 94 , ca 10.7 Nutritional Hx/Data Height 1.6 m Height (Calculated Centimeters) 160.0 Current Weight (lbs) 45.359 kg Weight (Calculated Kilograms) 45.4 Weight (Calculated Grams) 28422.2 [place] Body Weight 115 Body Mass Index (BMI) 17.6 Weight Status Underweight GI Symptoms GI Symptoms None Last BM 12/13 x 2 Difficult in: None Skin Integrity/Comment: intact Nutritional Problem No current Nutrition Prob Problem N/A Intervention/Recommendation Comments 1. Continue with current diet as ordered. 2. Monitor PO intake, wt, labs and skin integrity 3. F/U as low risk in 7 days, 12/21 Expected Outcomes/Goals Expected Outcomes/Goals 1. PO intake to meet at least 75% of nutritional needs. 2. Wt stability, skin to remain intact, labs to approach WNL.
[2017-12-22] MEDS: Lactobacillus Rhamnosus GG 15 Billion CFU CAP.SPRINK PO SCH (09:20)
[2017-12-22] MEDS: Vitamin B Complex w/Vitamin C Tab PO SCH (09:20)
--- NOTE | 2017-12-22 13:35 | General Progress Note ---
Subjective - Review of Systems Service Date: 12/22/17 Subjective: still agitated, paranoid Objective - Results Result Diagrams: 12/14/17 07:20 12/14/17 07:20 Recent Labs: Laboratory Last Values WBC 9.5 Th/cmm (4.8-10.8) 12/14/17 07:20 RBC 3.54 Mil/cmm (3.80-5.20) L 12/14/17 07:20 Hgb 11.2 gm/dL (12-16) L 12/14/17 07:20 Hct 33.9 % (41.0-60) L 12/14/17 07:20 MCV 96.0 fl (81-100) 12/14/17 07:20 MCH 31.6 pg (27.0-31.0) H 12/14/17 07:20 MCHC Differential 33.0 pg (28.0-36.0) 12/14/17 07:20 RDW 12.3 % (11.5-20.0) 12/14/17 07:20 Plt Count 191 Th/cmm (150-400) 12/14/17 07:20 MPV 9.5 fl 12/14/17 07:20 Neutrophils % 66.8 % (40.0-80.0) 12/14/17 07:20 Band Neutrophils % 1 % (0-10) 12/09/17 20:17 Lymphocytes % 25.1 % (20.0-50.0) 12/14/17 07:20 Monocytes % 5.6 % (2.0-10.0) 12/14/17 07:20 Eosinophils % 2.0 % (0.0-5.0) 12/14/17 07:20 Basophils % 0.5 % (0.0-2.0) 12/14/17 07:20 Neutrophils (Manual) 56 % (40-80) 12/09/17 20:17 Lymphocytes 35 % (20-50) 12/09/17 20:17 Monocytes 3 % (2-10) 12/09/17 20:17 Eosinophils 5 % (0-5) 12/09/17 20:17 Basophils 0 % (0-3) 12/09/17 20:17 Sodium 141 mEq/L (136-145) 12/14/17 07:20 Potassium 5.1 mEq/L (3.5-5.1) 12/14/17 07:20 Chloride 107 mEq/L (98-107) 12/14/17 07:20 Carbon Dioxide 29.2 mEq/L (21.0-31.0) 12/14/17 07:20 Anion Gap 9.9 (7.0-16.0) 12/14/17 07:20 BUN 43 mg/dL (7-25) H 12/14/17 07:20 Creatinine 2.5 mg/dL (0.6-1.2) H 12/14/17 07:20 Est GFR ( Amer) 24.5 ml/min (>90) 12/14/17 07:20 Est GFR (Non-Af Amer) 20.2 ml/min 12/14/17 07:20 BUN/Creatinine Ratio 17.2 12/14/17 07:20 Glucose 94 mg/dL (70-105) 12/14/17 07:20 Calcium 10.7 mg/dL (8.6-10.3) H 12/14/17 07:20 Total Bilirubin 0.4 mg/dL (0.3-1.0) 12/14/17 07:20 AST 12 U/L (13-39) L 12/14/17 07:20 ALT 7 U/L (7-52) 12/14/17 07:20 Alkaline Phosphatase 43 U/L (34-104) 12/14/17 07:20 Total Protein 6.4 gm/dL (6.0-8.3) 12/14/17 07:20 Albumin 3.5 gm/dL (3.7-5.3) L 12/14/17 07:20 Globulin 2.9 gm/dL 12/14/17 07:20 Albumin/Globulin Ratio 1.2 (1.0-1.8) 12/14/17 07:20 TSH 1.71 uIU/ml (0.34-5.60) 12/09/17 20:17 Urine Source RANDOM 12/09/17 20:30 Urine Color YELLOW 12/09/17 20:30 Urine Clarity SLIGHT CLOUDY (CLEAR) H 12/09/17 20:30 Urine pH 7.5 (4.6 - 8.0) 12/09/17 20:30 Ur Specific [place] 1.010 (1.005-1.030) 12/09/17 20:30 Urine Protein 100 mg/dL (NEGATIVE) H 12/09/17 20:30 Urine Glucose (UA) NEGATIVE mg/dL (NEGATIVE) 12/09/17 20:30 Urine Ketones NEGATIVE mg/dL (NEGATIVE) 12/09/17 20:30 Urine Blood NEGATIVE (NEGATIVE) 12/09/17 20:30 Urine Nitrate NEGATIVE (NEGATIVE) 12/09/17 20:30 Urine Bilirubin NEGATIVE (NEGATIVE) 12/09/17 20:30 Urine Urobilinogen 0.2 E.U./dL (0.2 - 1.0) 12/09/17 20:30 Ur Leukocyte Esterase LARGE (NEGATIVE) H 12/09/17 20:30 Urine RBC 2-5 /hpf (0-5) 12/09/17 20:30 Urine WBC 10-25 /hpf (0-5) H 12/09/17 20:30 Ur Epithelial Cells OCCASIONAL /lpf (FEW) 12/09/17 20:30 Urine Bacteria FEW /hpf (NONE SEEN) 12/09/17 20:30 - Physical Exam Vitals and I&O: Vital Signs Temp 98.2 F 12/22/17 06:39 Pulse 85 12/22/17 06:39 Resp 19 12/22/17 06:39 BP 128/68 12/22/17 06:39 Pulse Ox 97 12/22/17 06:39 Intake & Output 12/21/17 12/22/17 12/22/17 18:59 06:59 18:59 Intake Total 900 120 Balance 900 120 Intake: Oral 900 120 Other: # Voids 3 3 Stool Characteristics Soft Formed Soft Hard Brown Active Medications: Current Medications Acetaminophen (Tylenol) 650 mg PO Q4HR PRN PRN Reason: Mild Pain / Temp above 100 Stop: 02/07/18 23:32 Albuterol Sulfate (Albuterol 2.5mg/3ml Neb Ud) 2.5 mg HHN Q4H PRN PRN Reason: Shortness of Breath Stop: 02/19/18 22:17 Last Admin: 12/21/17 22:53 Dose: 2.5 mg Cyanocobalamin (Vitamin B12) 100 mcg PO DAILY AYDEE Stop: 02/08/18 08:59 Last Admin: 12/22/17 09:20 Dose: 100 mcg Docusate Sodium (Colace) 100 mg PO DAILY [facility] Stop: 02/08/18 08:59 Last Admin: 12/22/17 09:20 Dose: 100 mg Lactobacillus Rhamnosus (Culturelle 15b) 1 each PO DAILY AYDEE Stop: 12/25/17 08:59 Last Admin: 12/22/17 09:20 Dose: 1 each Levothyroxine Sodium (Synthroid) 0.05 mg PO QDAC AYDEE Stop: 02/08/18 07:29 Last Admin: 12/22/17 06:42 Dose: 0.05 mg Lorazepam (Ativan) 0.5 mg PO Q4HR PRN; Protocol PRN Reason: Anxiety Stop: 01/08/18 23:32 Last Admin: 12/21/17 20:20 Dose: 0.5 mg Magnesium Hydroxide (Milk Of Magnesia) 30 ml PO DAILY PRN PRN Reason: Constipation Stop: 02/07/18 23:45 Megestrol Acetate (Megace) 400 mg PO DAILY AYDEE Stop: 02/08/18 08:59 Last Admin: 12/22/17 09:20 Dose: 400 mg Miscellaneous (Probiotic Screen) 1 ea MC PRN PRN PRN Reason: PROTOCOL Stop: 02/13/18 11:59 Promethazine HCl/Dextromethorphan (Phenergan Dm 6.25/15mg-5 Ml) 5 ml PO Q6HR PRN PRN Reason: Cough Stop: 02/19/18 22:18 Quetiapine Fumarate (Seroquel) 50 mg PO BID AYDEE PRN Reason: Protocol Stop: 02/15/18 16:59 Last Admin: 12/22/17 09:21 Dose: 50 mg Senna (Senna) 17.2 mg PO HS [facility] Stop: 02/08/18 20:59 Last Admin: 12/21/17 20:19 Dose: 17.2 mg Vitamin B Complex/Vit C/Folic Acid (Vitamin B Complex W/Vitamin C) 1 tab PO DAILY [facility] Stop: 02/08/18 08:59 Last Admin: 12/22/17 09:20 Dose: 1 tab Zolpidem Tartrate (Ambien) 5 mg PO HS PRN PRN Reason: Insomnia Stop: 02/07/18 23:32 Last Admin: 12/21/17 20:20 Dose: 5 mg General: Alert, No acute distress HEENT: Atraumatic Neck: Supple, +2 carotid pulse wo bruit Cardiovascular: Regular rate, Normal S1, Normal S2 Lungs: Clear to auscultation Abdomen: Bowel sounds, Soft Extremities: Other (No edema) Neurological: Sensation intact Skin: no Rash Psych/Mental Status: Other (Confused, not oriented, agitated) - Procedures Procedures: Procedures Procedure Code Date OTHER GROUP THERAPY 94.44 10/14/10 RECREATIONAL THERAPY 93.81 10/14/10 Assessment/Plan - Assessment Assessment: CKD Acute decomp of Psychosis CAD Hypothyroid - Plan Plan: Current Medications Acetaminophen (Tylenol) 650 mg PO Q4HR PRN PRN Reason: Mild Pain / Temp above 100 Stop: 02/07/18 23:32 Cyanocobalamin (Vitamin B12) 100 mcg PO DAILY AYDEE Stop: 02/08/18 08:59 Last Admin: 12/12/17 08:39 Dose: 100 mcg Docusate Sodium (Colace) 100 mg PO DAILY AYDEE Stop: 02/08/18 08:59 Last Admin: 12/12/17 08:40 Dose: 100 mg Levothyroxine Sodium (Synthroid) 0.05 mg PO QDAC AYDEE Stop: 02/08/18 07:29 Last Admin: 12/12/17 06:32 Dose: 0.05 mg Lorazepam (Ativan) 0.5 mg PO Q4HR PRN; Protocol PRN Reason: Anxiety Stop: 01/08/18 23:32 Magnesium Hydroxide (Milk Of Magnesia) 30 ml PO DAILY PRN PRN Reason: Constipation Stop: 02/07/18 23:45 Megestrol Acetate (Megace) 400 mg PO DAILY AYDEE Stop: 02/08/18 08:59 Last Admin: 12/12/17 08:40 Dose: 400 mg Quetiapine Fumarate (Seroquel) 12.5 mg PO BID AYDEE PRN Reason: Protocol Stop: 02/08/18 16:59 Last Admin: 12/12/17 08:40 Dose: 12.5 mg Senna (Senna) 17.2 mg PO HS AYDEE Stop: 02/08/18 20:59 Last Admin: 12/11/17 21:41 Dose: 17.2 mg Vitamin B Complex/Vit C/Folic Acid (Vitamin B Complex W/Vitamin C) 1 tab PO DAILY AYDEE Stop: 02/08/18 08:59 Last Admin: 12/12/17 08:40 Dose: 1 tab Zolpidem Tartrate (Ambien) 5 mg PO HS PRN PRN Reason: Insomnia Stop: 02/07/18 23:32 Lab - Result Diagrams 12/14/17 07:20 12/14/17 07:20 kidney fnc stable @ 2.5 which is her baseline encourage po intake continue psych meds Nutritional Asmnt/Malnutr-PDOC - Dietary Evaluation Malnutrition Findings (Please click <Entered> for more info): Nutritional Asmnt/Malnutrition Start: 12/14/17 16: 58 Text: Status: Complete Freq: Document 12/14/17 16:58 [facility] (Rec: 12/14/17 17:05 [email or web address]) Nutritional Asmnt/Malnutrition Patient General Information Nutritional Screening Moderate Risk Diagnosis psychosis NOS Pertinent Medical Hx/Surgical Hx CAD, dementia, schizophrenia, weakness, chronic renal insuff Subjective Information Pt seen sleeping at time of visit. Per EMR, PO intake 75%. Current Diet Order/ Nutrition Support mech soft chopped, santosh, high protein nourishment TID Pertinent Medications vit B12, colace, synthroid, megace, seroquel, senna, vit B complex, with vit C Pertinent Labs 12/14BUN 43, Cr 2.5, glucose 94 , ca 10.7 Nutritional Hx/Data Height 1.6 m Height (Calculated Centimeters) 160.0 Current Weight (lbs) 45.359 kg Weight (Calculated Kilograms) 45.4 Weight (Calculated Grams) 37700.2 [place] Body Weight 115 Body Mass Index (BMI) 17.6 Weight Status Underweight GI Symptoms GI Symptoms None Last BM 12/13 x 2 Difficult in: None Skin Integrity/Comment: intact Nutritional Problem No current Nutrition Prob Problem N/A Intervention/Recommendation Comments 1. Continue with current diet as ordered. 2. Monitor PO intake, wt, labs and skin integrity 3. F/U as low risk in 7 days, 12/21 Expected Outcomes/Goals Expected Outcomes/Goals 1. PO intake to meet at least 75% of nutritional needs. 2. Wt stability, skin to remain intact, labs to approach WNL.
--- NOTE | 2017-12-25 15:51 | Discharge Summary ---
DATE OF DISCHARGE: 12/22/2017 FINAL DIAGNOSIS/PRIMARY DIAGNOSIS: Unspecified psychosis. SECONDARY DIAGNOSIS: Dementia, moderate. REASON FOR HOSPITALIZATION: The patient was admitted to the hospital because of agitation, irritability, and aggressive behavior. HOSPITAL COURSE: The patient continued to be agitated and in irritable mood. The patient also was having periods of anger. The patient also was needing redirections. The patient was compliant with taking her medications with no side effects of medications. Gradually, the patient's affect was brighter. The patient was less irritable and less agitated. The patient also was accepted back to [facility]. Physical exam of the patient showed no major medical problems with the patient. AFTER DISCHARGE PLANS: The patient discharged from the hospital with plan to be followed in [facility]. JOB# [id number]
== END 2017-12-22 15:00 | DRG 885 ==
LOC: ER 19:06 → GERO 22:04
PROVIDERS: ADMIT Psychiatry & Neurology Psychiatry; ATTEND Psychiatry & Neurology Psychiatry
DX: F23 Brief psychotic disorder (principal); N18.9 Chronic kidney disease, unspecified; N39.0 Urinary tract infection, site not specified; E03.9 Hypothyroidism, unspecified; F31.9 Bipolar disorder, unspecified; I25.10 Atherosclerotic heart disease of native coronary artery without angina pectoris; F03.90 Unspecified dementia, unspecified severity, without behavioral disturbance, psychotic disturbance, mood disturbance, and anxiety; R62.7 Adult failure to thrive; F41.9 Anxiety disorder, unspecified; M13.0 Polyarthritis, unspecified; Z88.2 Allergy status to sulfonamides; Z99.3 Dependence on wheelchair
CPT/HCPCS: 36415-UA; 71045-TC; 80053-TC; 81001-TC; 84443-TC; 85007-TC; 85025-TC; 85027-TC; 87086-90; 93005; 94640; 94760; J0696; J7040; J7613; Z7610